=== PATIENT | female | born 1970 | race Caucasian/White ===

== ENCOUNTER 2017-10-25 18:02 | Emergency (ER) | payer OTHER ==
[~2017-10-25] VITALS: Ht 167.6 cm; Wt 92.5 kg
[~2017-10-25 18:02] MED LIST: ACET500 PO; ALBIPROI INH; ALBU90OI INH; ASPI325 PO; ATORVASTATIN CA40 MG PO; AZIT250 PO; CHLO25 PO; CYCL10 PO; FETZIMA80 MG PO; FISH1000 PO; FLUSAL1005 INH; GABA300 PO; HYDACE5 PO; HYDACE5325 PO; IBUP600 PO; IBUP800 PO; LOSA50 PO; MELO7.5 PO; Mobic15 MG PO; NAPR500 PO; Naprosyn500 MG PO; Norco 10-325 T1 EACH PO; OXYACE5T PO; PENVK500 PO; Percocet 5-3251 EACH PO; ULTRA-LIGHT RO1 EACH MC; Ultram50 MG PO; ZESTORETIC 20-121 EA PO; Zofran Odt4 MG SL
[2017-10-25 18:44] LABS: BASOPHILS ABSOLUTE AUTO 0.02 K/mm3 (0.00-0.23); BASOPHILS PERCENT AUTO 0 % (0-2); EOSINOPHILS PERCENT AUTO 0 % (0-6); Hematocrit 45.6 % (33.0-51.0); Hemoglobin 16.2 g/dL (11.5-16.0); IMMATURE GRAN ABSOLUTE AUTO 0.04 K/mm3 (0.00-0.10); IMMATURE GRAN PERCENT AUTO 0 % (0-1); LYMPHOCYTES ABSOLUTE AUTO 2.04 K/mm3 (0.84-5.20); LYMPHOCYTES PERCENT AUTO 15 % (21-46); MONOCYTES PERCENT AUTO 10 % (4-13); Mean Corpuscular HGB 34.5 pg (26.0-34.0); Mean Corpuscular HGB Conc 35.5 g/dL (31.5-36.5); Mean Corpuscular Volume 97 fL (80-100); Mean Platelet Volume 10.8 fL (9.1-12.4); NEUTROPHILS ABSOLUTE AUTO 9.94 K/mm3 (1.96-9.15); NEUTROPHILS PERCENT AUTO 74 % (41-73); Platelet Count 181 K/mm3 (150-400); RDW Coefficient Variation 13.5 % (11.7-14.2); RDW Standard Deviation 48.1 fL (35.1-46.3); White Blood Cell Count 13.44 K/mm3 (4.00-11.30)
[2017-10-25 19:05] LABS: Alanine Aminotransfer (ALT/SGP 64 U/L (12-78); Albumin, Blood 3.5 g/dL (3.4-5.0); Albumin/Globulin Ratio 0.9 (0.8-1.8); Alk Phos 87 U/L (50-136); Anion Gap 10 mmol/L (6-16); Aspartate Aminotrans (AST/SGOT 109 U/L (12-37); Bilirubin, Total 1.5 mg/dL (0.1-1.0); Blood Urea Nitrogen 20 mg/dL (8-24); Bun/Creatinine Ratio 33.1 (12.0-20.0); CO2, Blood 28 mmol/L (21-32); Calcium, Blood 9.4 mg/dL (8.5-10.1); Chloride, Blood 91 mmol/L (98-108); Creatinine, Blood 0.61 mg/dL (0.40-1.00); Globulin, Blood 3.9 g/dL (2.2-4.0); Glomerular Filtration Rate >60 (60-); Glucose, Blood 153 mg/dL (70-99); Sodium, Blood 129 mmol/L (136-145); Total Protein, Blood 7.4 g/dL (6.4-8.2)
[2017-10-25 20:04] LABS: Ethanol (Alcohol), Blood, Med <3 mg/dL; Troponin I <0.015 ng/mL (0.000-0.040)
== END 2017-10-25 22:23 | disposition short-term general hospital (02) ==
LOC: ER 18:02
PROVIDERS: Emergency Medicine
DX: K92.2 Gastrointestinal hemorrhage, unspecified (principal); E87.8 Other disorders of electrolyte and fluid balance, not elsewhere classified; E87.1 Hypo-osmolality and hyponatremia; E87.6 Hypokalemia; F10.239 Alcohol dependence with withdrawal, unspecified; I10 Essential (primary) hypertension; F41.9 Anxiety disorder, unspecified; F17.200 Nicotine dependence, unspecified, uncomplicated; Z79.899 Other long term (current) drug therapy
CPT/HCPCS: 36415; 71045; 80053; 83690; 84484; 85025; 86850; 86900; 86901; 93005; 93010; 96365; 96366; 96375; 99285; C9113; G0480; J1170; J2060; J2405; J2765; J3411; J3475; J7042

== ENCOUNTER 2018-01-26 15:31 | Inpatient (IN) | payer OTHER ==
[~2018-01-26] VITALS: Ht 167.6 cm; Wt 90.7 kg
[2018-02-03] MEDS ORDERED: IBUP800 PO (13:49)
[2018-02-03] MEDS ORDERED: Solaraze100 GM TOP (13:50)
[2018-02-03] MEDS ORDERED: AMIT25 PO (13:53)
[2018-02-18 05:28] LABS: BASOPHILS PERCENT AUTO 0 % (0-2); EOSINOPHILS PERCENT AUTO 0 % (0-6); Hematocrit 32.9 % (33.0-51.0); Hemoglobin 11.2 g/dL (11.5-16.0); IMMATURE GRAN ABSOLUTE AUTO 0.03 K/mm3 (0.00-0.10); IMMATURE GRAN PERCENT AUTO 0 % (0-1); LYMPHOCYTES ABSOLUTE AUTO 1.39 K/mm3 (0.84-5.20); LYMPHOCYTES PERCENT AUTO 12 % (21-46); MONOCYTES PERCENT AUTO 8 % (4-13); Mean Corpuscular HGB 32.2 pg (26.0-34.0); Mean Corpuscular Volume 95 fL (80-100); NEUTROPHILS PERCENT AUTO 80 % (41-73); Platelet Count 207 K/mm3 (150-400); RDW Coefficient Variation 13.5 % (11.7-14.2); RDW Standard Deviation 47.1 fL (35.1-46.3); Red Blood Cell Count 3.48 M/mm3 (3.80-5.20); White Blood Cell Count 12.12 K/mm3 (4.00-11.30)
[2018-02-18 05:43] LABS: Anion Gap 6 mmol/L (6-16); Blood Urea Nitrogen 15 mg/dL (8-24); Bun/Creatinine Ratio 25.4 (12.0-20.0); CO2, Blood 29 mmol/L (21-32); Calcium, Blood 8.6 mg/dL (8.5-10.1); Chloride, Blood 101 mmol/L (98-108); Creatinine, Blood 0.59 mg/dL (0.40-1.00); Glomerular Filtration Rate >60 (60-); Glucose, Blood 144 mg/dL (70-99); Potassium, Blood 4.5 mmol/L (3.5-5.5); Sodium, Blood 136 mmol/L (136-145)
[2018-02-18] MEDS ORDERED: ASPI325EC PO (09:34)
[2018-02-18] MEDS ORDERED: Percocet 5-3251 EACH PO (09:36)
== END 2018-02-18 11:26 | disposition home or self-care (01) | DRG 470 ==
LOC: SURS 02-17 06:08 → PRE IP 02-17 07:30 → SURS 02-17 12:05
PROVIDERS: Orthopaedic Surgery
PROC: 0SRB04Z Replacement of Left Hip Joint with Ceramic on Polyethylene Synthetic Substitute, Open Approach (ICD-10-PCS; principal; 2018-02-17 07:30)
DX: M16.12 Unilateral primary osteoarthritis, left hip (principal); I10 Essential (primary) hypertension; E66.9 Obesity, unspecified; Z68.32 Body mass index [BMI] 32.0-32.9, adult; G89.29 Other chronic pain; M54.5 Low back pain; Z87.891 Personal history of nicotine dependence
CPT/HCPCS: 36415; 72170; 80048; 85025; 86850; 86900; 86901; 88300; 97110; 97116; 97162; C1776; G8978; G8979; J0171; J0690; J0735; J1100; J1170; J1885; J2250; J2370; J2405; J2710; J2795; J3010; J7120

== ENCOUNTER 2020-03-30 10:37 | Inpatient (IN) | payer OTHER ==
[~2020-03-30] VITALS: Ht 167.6 cm; Wt 101.4 kg
[~2020-03-30 10:37] MED LIST changes: +AMIT25 PO; +ASPI325EC PO; +Solaraze100 GM TOP
[2020-03-30 11:22] LABS: BASOPHILS ABSOLUTE AUTO 0.06 K/mm3 (0.00-0.23); BASOPHILS PERCENT AUTO 1 % (0-2); EOSINOPHILS PERCENT AUTO 2 % (0-6); Hematocrit 38.3 % (33.0-51.0); Hemoglobin 13.1 g/dL (11.5-16.0); IMMATURE GRAN ABSOLUTE AUTO 0.08 K/mm3 (0.00-0.10); IMMATURE GRAN PERCENT AUTO 1 % (0-1); LYMPHOCYTES ABSOLUTE AUTO 2.27 K/mm3 (0.84-5.20); LYMPHOCYTES PERCENT AUTO 33 % (21-46); MONOCYTES ABSOLUTE AUTO 1.02 K/mm3 (0.16-1.47); MONOCYTES PERCENT AUTO 15 % (4-13); Mean Corpuscular HGB 32.6 pg (26.0-34.0); Mean Corpuscular HGB Conc 34.2 g/dL (31.5-36.5); Mean Corpuscular Volume 95 fL (80-100); Mean Platelet Volume 11.6 fL (9.1-12.4); NEUTROPHILS PERCENT AUTO 48 % (41-73); Platelet Count 200 K/mm3 (150-400); RDW Coefficient Variation 19.9 % (11.7-14.2); RDW Standard Deviation 68.9 fL (35.1-46.3); Red Blood Cell Count 4.02 M/mm3 (3.80-5.20); White Blood Cell Count 6.83 K/mm3 (4.00-11.30)
[2020-03-30 11:45] LABS: Albumin, Blood 3.3 g/dL (3.4-5.0); Albumin/Globulin Ratio 0.8 (0.8-1.8); Bilirubin, Total 1.4 mg/dL (0.1-1.0); Bun/Creatinine Ratio 14.9 (12.0-20.0); Calcium, Blood 5.7 mg/dL (8.5-10.1); Creatinine, Blood 3.63 mg/dL (0.40-1.00); Globulin, Blood 4.3 g/dL (2.2-4.0); Potassium, Blood 2.8 mmol/L (3.5-5.5); Total Protein, Blood 7.6 g/dL (6.4-8.2)
[2020-03-30 11:46] LABS: Magnesium, Blood 0.7 mg/dL (1.6-2.4); Phosphorus, Blood 4.6 mg/dL (2.5-4.9)
[2020-03-30] MEDS ORDERED: LOSA50 PO (11:56)
[2020-03-30] MEDS ORDERED: METO25ER PO (11:57)
[2020-03-30] MEDS ORDERED: NYAMYC15 G1 TOP (11:57)
[2020-03-30] MEDS ORDERED: ALBU90OI INH (11:58)
[2020-03-30 11:59] LABS: Base Excess Venous -3.4 mmol/L; Bicarbonate Venous 20.7 mmol/L (24.0-30.0); PCO2 Venous 50.4 mmHg (38-42); PO2 Venous 41.6 mmHg (38-42); pH Blood Venous 7.28 (7.34-7.37)
[2020-03-30 12:24] LABS: Source, Urine Clean Catch
[2020-03-30 12:27] LABS: Bilirubin, Urine Neg (Neg); Blood, Urine 4+ (Neg); Glucose Qualitative, Urine Neg (Neg); Ketones, Urine Neg (Neg); Leukocyte Esterase, Urine Neg (Neg); Nitrite, Urine Neg (Neg); Protein, Urine 2+ (Neg); Specific Gravity, Urine 1.015 (1.003-1.022); Urobilinogen, Urine NORM (Normal)
[2020-03-30 12:48] LABS: Appearance, Urine Hazy (Clear); Color, Urine Yellow (P-Yellow)
[2020-03-30 12:49] LABS: Bacteria Many /hpf; Squamous Epithelial Cells Many /hpf (Few)
[2020-03-30 17:01] LABS: Hematocrit 35.6 % (33.0-51.0)
[2020-03-30 17:16] LABS: Albumin, Blood 2.9 g/dL (3.4-5.0); Anion Gap 21 mmol/L (6-16); Blood Urea Nitrogen 53 mg/dL (8-24); Bun/Creatinine Ratio 15.5 (12.0-20.0); CO2, Blood 20 mmol/L (21-32); Calcium, Blood 5.3 mg/dL (8.5-10.1); Chloride, Blood 83 mmol/L (98-108); Creatinine, Blood 3.43 mg/dL (0.40-1.00); Glomerular Filtration Rate 15 (60-); Glucose, Blood 83 mg/dL (70-99); Phosphorus, Blood 4.9 mg/dL (2.5-4.9); Potassium, Blood 2.8 mmol/L (3.5-5.5); Sodium, Blood 124 mmol/L (136-145)
[2020-03-30 17:50] LABS: Albumin, Blood 3.2 g/dL (3.4-5.0); Anion Gap 17 mmol/L (6-16); Blood Urea Nitrogen 53 mg/dL (8-24); Bun/Creatinine Ratio 16.5 (12.0-20.0); CO2, Blood 22 mmol/L (21-32); Calcium, Blood 6.4 mg/dL (8.5-10.1); Chloride, Blood 84 mmol/L (98-108); Creatinine, Blood 3.21 mg/dL (0.40-1.00); Glomerular Filtration Rate 16 (60-); Glucose, Blood 113 mg/dL (70-99); Magnesium, Blood 1.3 mg/dL (1.6-2.4); Phosphorus, Blood 4.7 mg/dL (2.5-4.9); Potassium, Blood 2.8 mmol/L (3.5-5.5); Sodium, Blood 123 mmol/L (136-145)
[2020-03-31 03:36] LABS: Hematocrit 32.2 % (33.0-51.0); Hemoglobin 10.6 g/dL (11.5-16.0); Mean Corpuscular HGB 32.4 pg (26.0-34.0); Mean Corpuscular HGB Conc 32.9 g/dL (31.5-36.5); Mean Platelet Volume 11.4 fL (9.1-12.4); Platelet Count 135 K/mm3 (150-400); RDW Coefficient Variation 20.1 % (11.7-14.2); RDW Standard Deviation 72.6 fL (35.1-46.3); Red Blood Cell Count 3.27 M/mm3 (3.80-5.20); White Blood Cell Count 6.14 K/mm3 (4.00-11.30)
[2020-03-31 03:37] LABS: Mean Corpuscular Volume 99 fL (80-100)
[2020-03-31 04:19] LABS: Albumin, Blood 2.6 g/dL (3.4-5.0); Albumin/Globulin Ratio 0.8 (0.8-1.8); Bilirubin, Total 1.4 mg/dL (0.1-1.0); Bun/Creatinine Ratio 18.1 (12.0-20.0); Calcium, Blood 5.8 mg/dL (8.5-10.1); Creatinine, Blood 2.7 mg/dL (0.40-1.00); Globulin, Blood 3.4 g/dL (2.2-4.0); Potassium, Blood 3.5 mmol/L (3.5-5.5)
[2020-03-31 04:38] LABS: Magnesium, Blood 1.9 mg/dL (1.6-2.4)
--- NOTE | 2020-03-31 05:46 | NUR ---
SHIFT SUMMARY PATIENT SLEPT WELL THROUGH NIGHT. EARLY IN SHIFT HAD ELEVATED CIWAs, SEE DOCUMENTATION, WAS WELL CONTROLLED WITH AVAILABLE ATIVAN AND LIBRIUM, SEE EMAR. WAS RATHER SOMNOLENT INITIALLY AFTER 50 MG LIBRIUM, MAY BENEFIT FROM SMALLER DOSE, OR FURTHER AWAY TIMING FROM ATIVAN. ELECTROLYTES MUCH IMPROVED OVERALL THIS AM, STILL REQUIRED CALCIUM REPLACEMENT. DID HAVE TO PLACE ON 2L NC, WAS DESATURATING TO 84% WITHOUT OXYGEN IN SLEEP. NO C/O PAIN. VSS. ASSESSMENT IS CHARTED. WILL CONTINUE TO MONITOR.
--- NOTE | 2020-03-31 09:54 | NUR ---
AM - DAYSHIFT PCU NOTE PATIENT ALERT AND ORIENTED X4. RESP E/U ON ROOM AIR. PATIENT STATES SHE FEELS 'FOGGY' - EDUCATED PATIENT ON ETOH DETOX MEDICATION - PATIENT REQUESTED MORE MEDICATIONS REGARDLESS OF 'FOGGY' FEELING. PATIENT REPORTS CHRONIC BACK PAIN. NORMAL SINUS RHYTHM NOTED WITH NO CARDIAC EVENTS. MD SINGER IN TO SEE PATIENT - NEW ORDERS FOR CARDIAC DIET AND MEDICAL STATUS NO TELE GIVEN. REPORT GIVEN TO KENDELL JALOUSIE INSTALLER. NO ACUTE DISTRES NOTED.
[2020-03-31 13:33] LABS: Albumin, Blood 2.6 g/dL (3.4-5.0); Anion Gap 10 mmol/L (6-16); Blood Urea Nitrogen 45 mg/dL (8-24); CO2, Blood 23 mmol/L (21-32); Calcium, Blood 6.2 mg/dL (8.5-10.1); Chloride, Blood 100 mmol/L (98-108); Creatinine, Blood 2.14 mg/dL (0.40-1.00); Glomerular Filtration Rate 26 (60-); Glucose, Blood 119 mg/dL (70-99); Magnesium, Blood 1.5 mg/dL (1.6-2.4); Phosphorus, Blood 2.5 mg/dL (2.5-4.9); Potassium, Blood 3.3 mmol/L (3.5-5.5); Sodium, Blood 133 mmol/L (136-145)
--- NOTE | 2020-03-31 15:48 | NUR ---
UPDATE PT ALERT AND ORIENTED. VS STABLE. O2 SATS REMAIN ABOVE 90% ON RA. BP STABLE. TELEMETRY HAS BEEN DISCONTINUED. MONITORING WITHDRAWALS AND TREATING PER CIWA. ORDERS CHANGED TO MEDICAL STATUS. REPORT CALLED TO MEDICAL FLOOR RN. PT TAKEN UP BY LIZ.
--- NOTE | 2020-03-31 19:12 | NUR ---
SHIFT SUMMARY- PT ALERT AND ORIENTED. TRANSFERED TO MEDICAL FLOOR FROM PCU. PT WAS MEDICATED FOR CIWA OF 9 AT 1715 WITH LIBRIUM. PT APPEARS TO BE STABLE AT THIS TIME. SHE IS CURRENTLY IN BED SLEEPING CALL LIGHT IN REACH AND BED ALARM SET FOR SAFETY. BEDSIDE REPORT COMPLETED WITH NIGHT RN. NO S&S OF DISTRESS NOTED AT THIS TIME PT APPEARS RELAXED AND COMFORTABLE.
[2020-04-01 05:28] LABS: Albumin, Blood 2.5 g/dL (3.4-5.0); Anion Gap 10 mmol/L (6-16); Blood Urea Nitrogen 32 mg/dL (8-24); Bun/Creatinine Ratio 24.1 (12.0-20.0); CO2, Blood 20 mmol/L (21-32); Calcium, Blood 6.2 mg/dL (8.5-10.1); Chloride, Blood 105 mmol/L (98-108); Creatinine, Blood 1.33 mg/dL (0.40-1.00); Glomerular Filtration Rate 45 (60-); Glucose, Blood 109 mg/dL (70-99); Phosphorus, Blood 1.7 mg/dL (2.5-4.9); Sodium, Blood 135 mmol/L (136-145)
--- NOTE | 2020-04-01 07:27 | NUR ---
AUDIO VISUAL EQUIPMENT RENTAL CLERK SUMMARY PT A/O X4. CIWAS OF 9-12 ON MY SHIFT. WITHDRAWL MEDS GIVEN PER EMAR. BED ALARM ON. PT CALLS APPROPRIATELY. VSS. NO ACUTE CHANGES.
--- NOTE | 2020-04-01 17:44 | NUR ---
PATIENT VERY DROWSY THROUGHOUT THIS SHIFT. CIWA SCORE OF 6 TODAY. MEDICATED X1 TODAY WITH TRAMADOL FOR CHRONIC BACK PAIN. UP WITH SBA, GAIT UNSTEADY. PATIENT IS CONTINENT OF BOWEL AND BLADDER. LUNGS CLEAR/DIM THROUGHOUT, ON RA. MAGNESIUM REPLACED TODAY AND NEUTRA PHOS GIVEN. AMMONIA LEVEL 60, LACTULOSE WAS STARTED. PATIENT CAN BE IRRITABLE AT TIMES. TOLERATING CARDIAC DIET. ZOFRAN GIVEN X1 THIS SHIFT FOR NAUSEA, NO EMESIS TODAY. FALL PRECAUTIONS IN PLACE PER UNIT PROTOCOL.
[2020-04-02 05:17] LABS: Albumin, Blood 2.4 g/dL (3.4-5.0); Anion Gap 5 mmol/L (6-16); Blood Urea Nitrogen 20 mg/dL (8-24); Bun/Creatinine Ratio 20.5 (12.0-20.0); CO2, Blood 25 mmol/L (21-32); Calcium, Blood 6.6 mg/dL (8.5-10.1); Chloride, Blood 109 mmol/L (98-108); Creatinine, Blood 0.98 mg/dL (0.40-1.00); Glomerular Filtration Rate >60 (60-); Glucose, Blood 100 mg/dL (70-99); Potassium, Blood 3.9 mmol/L (3.5-5.5); Sodium, Blood 139 mmol/L (136-145)
--- NOTE | 2020-04-02 06:39 | NUR ---
GLACING MACHINE TENDER SUMMARY CIWA OF 10 AT START OF SHIFT. GIVEN 1MG IV ATIVAN. PT REPORTED HEADACHE, NAUSEA, ANXIETY, AND HAD SOME MILD VISIBLE TREMORS. SBP 89 WITH MORNING VITALS BUT GOT PT UP TO BATHROOM AND RECHECK SHORTLY AFTER SBP 130'S. VSS, WILL CONTINUE TO MONITOR.
--- NOTE | 2020-04-02 17:02 | NUR ---
SUMMARY PT RESTING QUIETLY IN BED, WAKES EASILY, HAS MILD TREMORS, MED PER EMAR FOR WITHDRAWL, PT C/O NAUSEA, MED PER EMAR FOR NAUSEA WELL, PT HAS BEEN INDEPENDENT IN THE ROOM T/O THE DAY, NO COMPLAINTS, VSS, POSSIBLE DC IN AM, WILL CONTINUE TO MONITOR
[2020-04-03 05:07] LABS: Albumin, Blood 2.5 g/dL (3.4-5.0); Anion Gap 4 mmol/L (6-16); Blood Urea Nitrogen 11 mg/dL (8-24); Bun/Creatinine Ratio 10.9 (12.0-20.0); CO2, Blood 26 mmol/L (21-32); Calcium, Blood 6.6 mg/dL (8.5-10.1); Chloride, Blood 110 mmol/L (98-108); Creatinine, Blood 1.01 mg/dL (0.40-1.00); Glomerular Filtration Rate >60 (60-); Glucose, Blood 107 mg/dL (70-99); Potassium, Blood 4.5 mmol/L (3.5-5.5); Sodium, Blood 140 mmol/L (136-145)
--- NOTE | 2020-04-03 06:17 | NUR ---
SHIFT SUMMARY PT IS A 49 Y/O FEMALE, ADMITTED FOR ACUTE RENAL FAILURE, LIVER FAILURE AND ETOH WITHDRAWAL. PT WAS MEDICATED ONCE AT HS FOR CHRONIC BACK PAIN WITH PRN TRAMADOL. NO COMPLAINTS OF NAUSEA OR SOB. PT WAS VERY SOMNOLENT THIS AM, WITH SOME MINOR TREMORS NOTED. PT REFUSED HS LACTULOSE DUE TO A LARGE NUMBER OF LIQUID BMS. VITAL SIGNS STABLE. NO ACUTE CHANGES IN PT CONDITION NOTED. WILL CONTINUE TO MONITOR AND TREAT PER EMAR UNTIL HAND OFF TO DAY SHIFT RN.
[2020-04-03 12:04] LABS: Base Excess Venous -2.5 mmol/L; Bicarbonate Venous 22.1 mmol/L (24.0-30.0); PCO2 Venous 48.2 mmHg (38-42); PO2 Venous 63.1 mmHg (38-42)
--- NOTE | 2020-04-03 17:59 | NUR ---
SUMMARY- PT SLEEPY MOST OF THE DAY NAPPING ON AND OFF, EASILY AROUSES. AMBULATES TO BATHROOM SBA, STEADY ON FEET. MULT LOOSE STOOLS TODAY AFTER LACTALOSE. PT HAS A EXP WHEEZE, CALLED FOR NEBULIZER THIS AM WITH DORINDA JUAREZ. NOTIFIED DR ROBBINS OF WHEEZE, AND POSSIBILITY OF FLUID ON HER LUNGS. CHEST XRAY ORDERED. BMP ORDERED. RT SET UP CPAP, AND PT TOOK OFF AFTER 10 MINUTES. CONT PULSE OX, LOWEST WAS 86%, STAYS MOSTLY 90-092%. NO NOTABLE APNEA WHEN RESTING. AWAKENS AND SITS AT EDGE OF BED AND EATING APPROX 50% OF MEALS.
--- NOTE | 2020-04-03 23:57 | NUR ---
2336 PT C/O SLIGHT ANXIETY; LIBRIUM 25MG PO GIVEN. 2340 THIS NURSE HEARD LOUD NOICE AND THUMP ON FLOOR; PATIENT WAS FOUND LAYING ON LEFT LATERAL SIDE FIVE FEET FROM BED AND STATING THAT SHE ROLLED OUT OF BED; C/O OCCIPITAL PAIN RATED 1/10 (NO RAISED AREA OR BLEEDING NOTED); PT ASSISTED BACK TO BED X 1 ASSIST (PT STOOD AND TRANSFERRED TO BED); BED ALARM APPLIED; VITAL SIGNS STABLE; KINGSLEY DIAMOND RN, CHARGE NURSE AT SIDE; NEUROLOGICAL STATUS OK--NO DEFICITS NOTED. 2350 Jb PERALES NP NOTIFIED OF ABOVE WITH ORDERS TO CONTINUE MONITOR.
--- NOTE | 2020-04-04 05:10 | NUR ---
SHIFT SUMMARY: 49 Y/O OBESE FEMALE HAD RESTLESS NIGHT AT TIMES WITH LIBRIUM 25MG PO GIVEN ONCE WITH SLIGHT RELIEF FELT; PT HAD FALL THIS SHIFT AFTER BEING FOUND ON FLOOR BY THIS NURSE; PT CONTINUES TO BE SLIGHTLY DISORIENTED AT TIMES WITH SPEECH SLOW WHICH SAME BEHAVIOR DISPLACED BEFORE FALL. ; PT REQUIRED FREQUENT REDIRECTION; BED ALARM REMAINED APPLIED, BED LOW POSITIION WITH CALL LIGHT AT SIDE; CIWA SCORE REMAINS 7.
--- NOTE | 2020-04-04 05:17 | NUR ---
PT WAS SITTING ON EDGE OF BED WITH FEET THRU SIDE RAILS; PT READJUSTED SELF BACK INTO BED X 1 ASSIST; THOUGHT PROCESS DISORGANIZED, ABLE TO FOLLOW VERY SIMPLE VERBAL COMMANDS.
--- NOTE | 2020-04-04 20:00 | NUR ---
ASSUMED CARE RECEIVED REPORT FROM DAY RN, ASSUMED CARE OF PT. RESTING COMFORTABLY AT THIS TIME, NO S/S ACUTE DISTRESS, AGITATION NOTED. CALM AND SLEEPING AT THIS TIME. DENIES NEEDS. CALL LIGHT, POSSESSIONS IN REACH, BED IN LOWEST POSITION WITH ALARMS ON. WILL CONTINUE TO MONITOR.
--- NOTE | 2020-04-05 03:59 | NUR ---
SHIFT SUMMARY PT HAS HAD AN UNEVENTFUL NIGHT. A&O, DROWSY, BUT AROUSABLE T/O SHIFT. CIWA SCORES BETWEEN 0-5. PT PLEASANT, COOPERATIVE WITH CARES. O2 SATS STABLE ON 1L/NC, BETWEEN 90-94%. SLEPT ON AND OFF. AMBULATED TO BATHROOM WITH SBA WITH FWW AND GB. NO ADVERSE EFFECTS NOTED FROM FALL. THIS RN REMINDED PT TO CALL PRIOR TO GETTING OOB. PT CALLING APPROPRIATELY FOR NEEDS. EARLY YEARS TEACHER AT BEDSIDE AT THIS TIME. CALL LIGHT, POSSESSIONS IN REACH, BED IN LOWEST POSITION WITH ALARMS ON. WILL CONTINUE TO MONITOR UNTIL DAY RN ASSUMES CARE.
[2020-04-06 05:49] LABS: BASOPHILS ABSOLUTE AUTO 0.05 K/mm3 (0.00-0.23); BASOPHILS PERCENT AUTO 1 % (0-2); EOSINOPHILS ABSOLUTE AUTO 0.19 K/mm3 (0.00-0.68); EOSINOPHILS PERCENT AUTO 3 % (0-6); Hematocrit 30.8 % (33.0-51.0); Hemoglobin 9.7 g/dL (11.5-16.0); IMMATURE GRAN ABSOLUTE AUTO 0.04 K/mm3 (0.00-0.10); IMMATURE GRAN PERCENT AUTO 1 % (0-1); LYMPHOCYTES ABSOLUTE AUTO 2.19 K/mm3 (0.84-5.20); LYMPHOCYTES PERCENT AUTO 34 % (21-46); MONOCYTES ABSOLUTE AUTO 0.84 K/mm3 (0.16-1.47); MONOCYTES PERCENT AUTO 13 % (4-13); Mean Corpuscular HGB 33.3 pg (26.0-34.0); Mean Corpuscular HGB Conc 31.5 g/dL (31.5-36.5); Mean Platelet Volume 11.3 fL (9.1-12.4); NEUTROPHILS ABSOLUTE AUTO 3.05 K/mm3 (1.96-9.15); NEUTROPHILS PERCENT AUTO 48 % (41-73); NRBC ABSOLUTE 0.03 K/mm3 (0.00-0.02); NRBC Auto 0.5 /100 WBC (0.0-0.2); Platelet Count 199 K/mm3 (150-400); RDW Standard Deviation 77.5 fL (35.1-46.3); Red Blood Cell Count 2.91 M/mm3 (3.80-5.20); White Blood Cell Count 6.36 K/mm3 (4.00-11.30)
[2020-04-06 05:52] LABS: Mean Corpuscular Volume 106 fL (80-100)
[2020-04-06 06:01] LABS: Alanine Aminotransfer (ALT/SGP 53 U/L (12-78); Albumin, Blood 2.6 g/dL (3.4-5.0); Albumin/Globulin Ratio 0.8 (0.8-1.8); Alk Phos 93 U/L (50-136); Anion Gap 2 mmol/L (6-16); Aspartate Aminotrans (AST/SGOT 67 U/L (12-37); Bilirubin, Total 0.5 mg/dL (0.1-1.0); Blood Urea Nitrogen 3 mg/dL (8-24); Bun/Creatinine Ratio 3.9 (12.0-20.0); CO2, Blood 33 mmol/L (21-32); Calcium, Blood 6.9 mg/dL (8.5-10.1); Chloride, Blood 106 mmol/L (98-108); Creatinine, Blood 0.76 mg/dL (0.40-1.00); Globulin, Blood 3.1 g/dL (2.2-4.0); Glomerular Filtration Rate >60 (60-); Glucose, Blood 104 mg/dL (70-99); Potassium, Blood 4.1 mmol/L (3.5-5.5); Sodium, Blood 141 mmol/L (136-145); Total Protein, Blood 5.7 g/dL (6.4-8.2)
[2020-04-06 06:20] LABS: Magnesium, Blood 0.6 mg/dL (1.6-2.4)
[2020-04-06 06:21] LABS: Percent Saturation 41.7 % (15.0-50.0)
--- NOTE | 2020-04-06 06:48 | NUR ---
SHIFT SUMMARY: VSS. AFEB. AAOX3. SLOW TO RESPOND. COMMUNICATES NEEDS. OCCASIONALLY IRRITABLE WITH ALARMS AND FEELING UNCOMFORTABLE. CIWA SCORES 5-8 TONIGHT. ATIVAN GIVEN X1 WITH GOOD EFFECT. 02 SATS BETWEEN 88-95% ON 2L VIA NC. LSCTA. OCC DRY COUGH. SOB W/EXERTION. CRITICAL MG+ CALLED TO HOSPITALIST. IV MG+ ORDERED. NOTED. WILL CONT TO MONITOR.
--- NOTE | 2020-04-06 17:15 | NUR ---
SHIFT SUMMARY PT HAS BEEN SLEEPING A LOT OF THE SHIFT. UP TO CHAIR FOR LUNCH. MEDICATED FOR HEADACHE WITH TORADOL THIS AM. PT REPORTS IT WAS SUCCESSFUL WITH HELPING THE PAIN. PT ON ROOM AIR AT THIS TIME AND TOLERATING AT THIS TIME. NO ACUTE CHANGES. POSSIBLE DISCHARGE TOMORROW. CALL LIGHT IN REACH. BED ALARM ON FOR FALL RISK. WILL CONTINUE TO MONITOR AND REPORT TO ONCOMING RN.
--- NOTE | 2020-04-06 21:58 | NUR ---
PT 02 SATS RANGING 85% TO 90% ON RA. LAYING IN BED AT REST. SATS INCREASE TO 90% WHEN PT IS MORE ACTIVE AND SPEAKING. DECREASE AT REST. 02 VIA NC PLACED. 02 SATS 95% ON 2L. SOB W/EXERTION. LSCTA. OCC NON-PRODUCTIVE COUGH. WILL CONT TO MONITOR.
--- NOTE | 2020-04-07 04:40 | NUR ---
SHIFT SUMMARY: VSS. AFEB. SATS WNL WHEN WEARING 02 AT 2L TONIGHT. EACH TIME 02 CAME OFF, SATS DROPPED TO LOW TO MID 80'S. LSCTA. OCC WET SOUNDING, BUT NON-PRODUCTIVE COUGH. SLIGHT WHEEZE W/EXERTION THIS MORNING. T/F W SBA. CONTINENT. TRAMADOL X 1 FOR HEADACHE. PT STATES HELPFUL. UP MULTIPLE TIMES TO THE BATHROOM TONIGHT TO VOID. NO ACUTE CHANGES AT THIS TIME. WILL CONT TO MONITOR.
[2020-04-07 06:28] LABS: Alanine Aminotransfer (ALT/SGP 45 U/L (12-78); Albumin, Blood 2.5 g/dL (3.4-5.0); Albumin/Globulin Ratio 0.9 (0.8-1.8); Anion Gap 5 mmol/L (6-16); Aspartate Aminotrans (AST/SGOT 58 U/L (12-37); Bilirubin, Total 0.7 mg/dL (0.1-1.0); Blood Urea Nitrogen 3 mg/dL (8-24); Bun/Creatinine Ratio 4.3 (12.0-20.0); CO2, Blood 32 mmol/L (21-32); Calcium, Blood 7.2 mg/dL (8.5-10.1); Chloride, Blood 107 mmol/L (98-108); Globulin, Blood 2.9 g/dL (2.2-4.0); Glomerular Filtration Rate >60 (60-); Glucose, Blood 93 mg/dL (70-99); Phosphorus, Blood 3.5 mg/dL (2.5-4.9); Sodium, Blood 144 mmol/L (136-145); Total Protein, Blood 5.4 g/dL (6.4-8.2)
[2020-04-07 06:29] LABS: Alk Phos 84 U/L (50-136)
[2020-04-07 06:31] LABS: Magnesium, Blood 0.9 mg/dL (1.6-2.4)
--- NOTE | 2020-04-07 16:49 | NUR ---
SHIFT SUMMARY PT HAS BEEN SLEEPING MOST OF THE SHIFT. MEDICATED FOR HEADACHE AND BACK PAIN THIS AFTERNOON PER EMAR. PT ON OXYGEN WHILE SLEEPING DUE TO O2 SATS 84% ON ROOM AIR WHILE SLEEPING. PT HAS HAD A BETTER APPETITE THIS SHIFT. NO ACUTE CHANGES THIS SHIFT. CALL LIGHT IN REACH. WILL CONTINUE TO MONITOR AND REPORT TO ONCOMING RN.
--- NOTE | 2020-04-08 02:21 | NUR ---
PT REPORTING NEW ONSET BLE MUSCLE CRAMPING TONIGHT. KEEPING HER AWAKE. CALL PLACED TO HOSPITALIST AKANKSHA. NEW ORDER FOR 1G MG+ IV SUPPLEMENTATION. DRAW MG+ LEVEL WITH AM BLOOD DRAW. NOTED.
--- NOTE | 2020-04-08 04:33 | NUR ---
SHIFT SUMMARY: VSS. AFEB. 02 SATS WNL ON RA WHILE PT IS AWAKE. SATS DROPPING TO MID 80'S WHILE ASLEEP. 02 2L VIA NC PLACED AND SATS IN LOW 90'S WHILE SLEEPING. SOB W/EXERTION. 1X IV MG+ INFUSED ORDERED. PT REPORTING MUSCLE CRAMPING IN LEGS IS MUCH IMPROVED AT THIS TIME. HAS SLEPT MINIMALLY ALL NIGHT- UP TO VOID SEVERAL TIMES AND TOSSES AND TURNS IN BED. FREQUENTLY ENTANGLING SELF IN TUBING, LINES, GOWN, AND BLANKETS. MED FOR PAIN PER EMAR. PT STATES "HELPS". APPEARS TO BE SLEEPING AT THIS TIME. WILL CONT TO MONITOR PT STATUS.
[2020-04-08] MEDS ORDERED: MIRT30 PO (14:14)
[2020-04-08] MEDS ORDERED: MULVITB PO (14:16)
[2020-04-08] MEDS ORDERED: PANT40 PO (14:17)
--- NOTE | 2020-04-08 15:01 | NUR ---
PATIENT DISCHARGE: PATIENT DISCHARGED TO HOME / XFR TO HOME HEALTH THIS SHIFT. MEDICATION RECONCILIATION COMPLETED; MED LIST FAXED TO [facility]. DISCHARGE EDUCATION COMPLETED WITH PATIENT. PATIENT TRANSPORTED TO EXIT BY [facility] WITH WHEELCHAIR AT 1500. PATIENT DEPARTED [facility] VIA PRIVATE AUTO.
== END 2020-04-08 14:58 | disposition home health service (06) | DRG 683 ==
LOC: ER 10:37 → PCU 16:33 → MEDS 16:33 → PCU 18:34 → MEDS 03-31 15:45
PROVIDERS: Family Medicine; Internal Medicine; Physician Assistant; ADMIT Internal Medicine
DX: N17.9 Acute kidney failure, unspecified (principal); E87.1 Hypo-osmolality and hyponatremia; F10.239 Alcohol dependence with withdrawal, unspecified; E72.20 Disorder of urea cycle metabolism, unspecified; G89.29 Other chronic pain; I10 Essential (primary) hypertension; F41.9 Anxiety disorder, unspecified; Z96.643 Presence of artificial hip joint, bilateral; F17.210 Nicotine dependence, cigarettes, uncomplicated; E66.9 Obesity, unspecified; Z68.35 Body mass index [BMI] 35.0-35.9, adult; E86.0 Dehydration; E83.51 Hypocalcemia; E83.42 Hypomagnesemia; R74.0 Nonspecific elevation of levels of transaminase and lactic acid dehydrogenase [LDH]; K70.10 Alcoholic hepatitis without ascites
CPT/HCPCS: 36415; 51798; 71046; 74018; 74176; 80053; 80069; 81001; 82140; 82330; 82607; 82728; 82746; 82803; 83540; 83550; 83605; 83690; 83735; 83880; 83970; 84100; 84145; 85014; 85018; 85025; 85027; 86850; 86900; 86901; 87040; 87086; 93005; 93010; 94640; 94660; 94762; 96361; 96365; 96366; 96368; 96375; 96376; 97161; 97162; 97165; 97530; 99285-25; A9270; A9270-GY; C8929; C9113; J0610; J1885; J1940; J2060; J2405; J3010; J3411; J3475; J3480; J7030; J7042; Q9957

== ENCOUNTER → 2021-11-26 | Outpatient (CLI) | payer OTHER ==
[~2021-11-26] MED LIST changes: +METO25ER PO; +MIRT30 PO; +MULVITB PO; +NYAMYC15 G1 TOP; +PANT40 PO
[2021-11-28 14:10] LABS: HPV 16 Negative (Negative); HPV 18 Negative (Negative); HPV OTHER HR TYPES Negative (Negative)
== END | disposition home or self-care (01) ==
LOC: LAB SHORT 17:32 → LAB 17:32
PROVIDERS: Registered Nurse
DX: Z12.4 Encounter for screening for malignant neoplasm of cervix (principal)
CPT/HCPCS: 87624; G0123

== ENCOUNTER 2022-08-05 13:43 | Emergency (ER) | payer OTHER ==
[~2022-08-05] VITALS: Ht 167.6 cm; Wt 113.4 kg
[2022-08-05] MEDS ORDERED: Naprosyn500 MG PO (15:35)
== END 2022-08-05 16:00 | disposition home or self-care (01) ==
LOC: ER 13:43
DX: M54.50 Low back pain, unspecified (principal); G89.29 Other chronic pain; I10 Essential (primary) hypertension; F17.200 Nicotine dependence, unspecified, uncomplicated; Z79.899 Other long term (current) drug therapy; Z88.5 Allergy status to narcotic agent
CPT/HCPCS: J1885

== ENCOUNTER 2022-08-08 19:50 | Inpatient (IN) | payer OTHER ==
[~2022-08-08] VITALS: Ht 167.6 cm; Wt 146.4 kg
[2022-08-08 20:20] LABS: BASOPHILS ABSOLUTE AUTO 0.04 K/mm3 (0.00-0.23); BASOPHILS PERCENT AUTO 1 % (0-2); EOSINOPHILS ABSOLUTE AUTO 0.09 K/mm3 (0.00-0.68); EOSINOPHILS PERCENT AUTO 1 % (0-6); Hematocrit 39.3 % (33.0-51.0); IMMATURE GRAN ABSOLUTE AUTO 0.05 K/mm3 (0.00-0.10); IMMATURE GRAN PERCENT AUTO 1 % (0-1); LYMPHOCYTES ABSOLUTE AUTO 1.81 K/mm3 (0.84-5.20); LYMPHOCYTES PERCENT AUTO 21 % (21-46); MONOCYTES ABSOLUTE AUTO 0.98 K/mm3 (0.16-1.47); MONOCYTES PERCENT AUTO 11 % (4-13); Mean Corpuscular HGB 35.2 pg (26.0-34.0); Mean Corpuscular HGB Conc 35.6 g/dL (31.5-36.5); Mean Corpuscular Volume 99 fL (80-100); Mean Platelet Volume 9.7 fL (9.1-12.4); NEUTROPHILS ABSOLUTE AUTO 5.72 K/mm3 (1.96-9.15); NEUTROPHILS PERCENT AUTO 66 % (41-73); NRBC ABSOLUTE 0.02 K/mm3 (0.00-0.02); NRBC Auto 0.2 /100 WBC (0.0-0.2); Platelet Count 176 K/mm3 (150-400); RDW Coefficient Variation 13.7 % (11.7-14.2); Red Blood Cell Count 3.98 M/mm3 (3.80-5.20); White Blood Cell Count 8.69 K/mm3 (4.00-11.30)
[2022-08-08 20:56] LABS: Alanine Aminotransfer (ALT/SGP 171 U/L (12-78); Albumin, Blood 3.1 g/dL (3.4-5.0); Alk Phos 236 U/L (50-136); Anion Gap 12 mmol/L (6-16); Aspartate Aminotrans (AST/SGOT 205 U/L (12-37); Blood Urea Nitrogen 21 mg/dL (8-24); Bun/Creatinine Ratio 7.2 (12.0-20.0); CO2, Blood 26 mmol/L (21-32); Calcium, Blood 9.3 mg/dL (8.5-10.1); Chloride, Blood 76 mmol/L (98-108); Creatinine, Blood 2.91 mg/dL (0.40-1.00); Globulin, Blood 3.2 g/dL (2.2-4.0); Glomerular Filtration Rate 19 (60-); Glucose, Blood 111 mg/dL (70-99); Potassium, Blood 5.9 mmol/L (3.5-5.5); Sodium, Blood 114 mmol/L (136-145); Total Protein, Blood 6.3 g/dL (6.4-8.2)
[2022-08-08] MEDS ORDERED: LOSA50 PO (22:25)
[2022-08-08] MEDS ORDERED: BUSPIRONE HCL7.5 M6 PO (22:25)
[2022-08-09 00:05] LABS: Acetaminophen, Random <2.0 ug/mL (10.0-30.0)
[2022-08-09 00:40] LABS: Magnesium, Blood 1.7 mg/dL (1.6-2.4)
[2022-08-09 03:39] LABS: Albumin, Blood 2.9 g/dL (3.4-5.0); Albumin/Globulin Ratio 0.9 (0.8-1.8); Bilirubin, Total 5.9 mg/dL (0.1-1.0); Bun/Creatinine Ratio 6.6 (12.0-20.0); Calcium, Blood 8.9 mg/dL (8.5-10.1); Creatinine, Blood 3.18 mg/dL (0.40-1.00); Globulin, Blood 3.3 g/dL (2.2-4.0); Potassium, Blood 5.9 mmol/L (3.5-5.5); Total Protein, Blood 6.2 g/dL (6.4-8.2)
[2022-08-09 04:09] LABS: Source, Urine Foley catheter
[2022-08-09 04:12] LABS: Blood, Urine 3+ (Neg); Glucose Qualitative, Urine 1+ (Neg); Ketones, Urine 1+ (Neg); Leukocyte Esterase, Urine 1+ (Neg); Nitrite, Urine Neg (Neg); Protein, Urine 2+ (Neg); Urobilinogen, Urine 1+ (Normal)
[2022-08-09 04:22] LABS: Appearance, Urine Clear (Clear); Bilirubin, Urine 1+ (Neg); Color, Urine Amber (P-Yellow)
[2022-08-09 04:23] LABS: Bacteria Few /hpf; Red Blood Cells, Urine 0-2 /hpf (0-2); Squamous Epithelial Cells Few /hpf (Few); White Blood Cells, Urine 0-2 /hpf (0-5)
[2022-08-09 04:24] LABS: Amorphous Light (0-Heavy); U Amphetamine Screen Not Detected; U Barbituate Screen Not Detected; U Benzodiazapine Screen Not Detected; U Buprenorphine Screen Not Detected; U Cannabinoids Screen Not Detected; U Cocaine Screen Not Detected; U Methadone Screen Not Detected; U Methamphetamine Screen Not Detected; U Opiates Screen Not Detected; U Oxycodone Screen Not Detected; U Phencyclidine Screen Not Detected; U Propoxyphene Screen Not Detected
[2022-08-09 06:17] LABS: Hematocrit 35.5 % (33.0-51.0); Hemoglobin 12.2 g/dL (11.5-16.0)
[2022-08-09 06:37] LABS: International Normalized Ratio 1.53; Prothrombin Time Results 15.6 Sec (9.7-11.5)
--- NOTE | 2022-08-09 07:39 | NUR ---
AT BEDSIDE AT 0700, PLACED CENTRAL LINE TO [facility] PT IS DISORIENTED, DIFFICULT TO UNDERSTAND SPEECH D/T SLURRED SPEECH. PT PLACED ON BIPAP D/T AUDIBLE WHEEZING, HX OF COPD, ACCESSORY MUSCLE USE. PT BECOMING MORE AGITATED THRASHING IN BED NOT FOLLOWING COMMANDS. ATIVAN GIVEN AND PT PLACED ON BIPAP. RT ADJUSTING BIPAP SETTINGS. ON LEVOPHED 24 MCG/MIN, VASOPRESSIN STARTED WELL AFTER CENTRAL LINE WAS CONFIRMED BY DR. GUAMAN. ON 15OML/HR IVF.
[2022-08-09 10:24] LABS: Base Excess Venous -4.3 mmol/L; Bicarbonate Venous 19.8 mmol/L (24.0-30.0); PCO2 Venous 61.8 mmHg (38-42); PO2 Venous 54.1 mmHg (38-42)
[2022-08-09 10:26] LABS: pH Blood Venous 7.19 (7.34-7.37)
[2022-08-09 10:38] LABS: Magnesium, Blood 2.1 mg/dL (1.6-2.4)
[2022-08-09 10:41] LABS: Albumin, Blood 3.2 g/dL (3.4-5.0); Bilirubin, Total 6.1 mg/dL (0.1-1.0); Bun/Creatinine Ratio 6.1 (12.0-20.0); Calcium, Blood 8.6 mg/dL (8.5-10.1); Creatinine, Blood 3.27 mg/dL (0.40-1.00); Globulin, Blood 3.1 g/dL (2.2-4.0); Phosphorus, Blood 3.5 mg/dL (2.5-4.9); Potassium, Blood 6.4 mmol/L (3.5-5.5); Total Protein, Blood 6.3 g/dL (6.4-8.2)
[2022-08-09 10:44] LABS: BASOPHILS ABSOLUTE AUTO 0.04 K/mm3 (0.00-0.23); BASOPHILS PERCENT AUTO 0 % (0-2); EOSINOPHILS ABSOLUTE AUTO 0.02 K/mm3 (0.00-0.68); EOSINOPHILS PERCENT AUTO 0 % (0-6); Hematocrit 39.7 % (33.0-51.0); Hemoglobin 13.3 g/dL (11.5-16.0); IMMATURE GRAN ABSOLUTE AUTO 0.11 K/mm3 (0.00-0.10); IMMATURE GRAN PERCENT AUTO 1 % (0-1); LYMPHOCYTES ABSOLUTE AUTO 1.14 K/mm3 (0.84-5.20); LYMPHOCYTES PERCENT AUTO 12 % (21-46); MONOCYTES PERCENT AUTO 12 % (4-13); Mean Corpuscular HGB Conc 33.5 g/dL (31.5-36.5); Mean Corpuscular Volume 105 fL (80-100); Mean Platelet Volume 9.9 fL (9.1-12.4); NEUTROPHILS ABSOLUTE AUTO 7.17 K/mm3 (1.96-9.15); NEUTROPHILS PERCENT AUTO 75 % (41-73); NRBC ABSOLUTE 0.02 K/mm3 (0.00-0.02); NRBC Auto 0.2 /100 WBC (0.0-0.2); Platelet Count 202 K/mm3 (150-400); RDW Coefficient Variation 14.2 % (11.7-14.2); RDW Standard Deviation 54.7 fL (35.1-46.3); White Blood Cell Count 9.58 K/mm3 (4.00-11.30)
--- NOTE | 2022-08-09 11:48 | NUR ---
PT STILL DROWSY AFTER ATIVAN THIS AM AND BIPAP ON. WILL RESPOND TO PAIN, STILL MUMBLES WITH SLURRED SPEECH. BOLUS ORDERED BY DR. GUAMAN PT IS STILL HYPOTENSIVE AND LEVOPHED IS AT 30MCG/MIN. DR. GUAMAN ATTEMPTED RADIAL A-LINE WITHOUT SUCCESS. RT WAS UNABLE TO GET ABG WELL. VBG WAS RAN INSTEAD AND DR. GUAMAN INFORMED. CALCIUM CHLORIDE STARTED. GOES BACK TO SLEEP QUICKLY WHEN LEFT ALONE. GRACIE S.O. STOPPED IN THIS AM, [facility]ARE IS CALLING TO CHECK IN ON HIM AND UPDATE IF NECESSARY.
--- NOTE | 2022-08-09 14:12 | NUR ---
Initial [facility] visit made this am. Pt with bipap on and started on pressors. Dr had placed central line. SO had been in earlier and left stating, he "didn't know what to do". Supportive t/c made to Jose with update on days events. He confirms that pt would want CPR and intubation at this time if needed. He was tearful on the phone. Pt is currently in acute renal and respiratory failure with acute hepatitis, daily heavy etoh use, comorbidities of morbid obesity, chronic back pain, GERD. She experienced falls at home and increasing weakness over past 1-2 weeks. Hope offered to SO for improvement in the next day or two. Invited him to call [facility] with any questions or for updates. Plan to make contact with Jose tomorrow for updates and support.
--- NOTE | 2022-08-09 17:24 | NUR ---
SUMMARY PT ON BIPAP ALL DAY. PT STILL HAS SLURRED MUMBLED SPEECH. DOES NOT FOLLOW COMMANDS OR COOPERATE WITH CARE. CLAMPS TEETH DOWN AND THRASHES HEAD SIDE TO SIDE FOR ORAL CARE AND WHEN NARE SPO2 PROBE IS MOVED. PT HAS STATED "NO!" TO PAIN SEVERAL TIMES TODAY WHICH IS THE ONLY CLEAR WORD THAT CAN BE COMPREHENDED. WILL FALL BACK TO SLEEP IF LEFT UNDISTURBED. TITRATING LEVOPHED DOWN. ON VASOPRESSIN AND NS AT 150ML/HR. PT'S SKIN IS VERY EXCORATED FROM FRONT TO BACK PERIAREA AND UNDER BREAST. POWDER APPLIED PER ORDERS.
[2022-08-10 04:17] LABS: Base Excess Venous -4.6 mmol/L; Bicarbonate Venous 19.8 mmol/L (24.0-30.0); PCO2 Venous 62.6 mmHg (38-42)
[2022-08-10 04:18] LABS: pH Blood Venous 7.19 (7.34-7.37)
[2022-08-10 04:50] LABS: BASOPHILS ABSOLUTE AUTO 0.03 K/mm3 (0.00-0.23); BASOPHILS PERCENT AUTO 0 % (0-2); EOSINOPHILS ABSOLUTE AUTO 0.06 K/mm3 (0.00-0.68); EOSINOPHILS PERCENT AUTO 1 % (0-6); Hematocrit 36.4 % (33.0-51.0); Hemoglobin 12.1 g/dL (11.5-16.0); IMMATURE GRAN ABSOLUTE AUTO 0.14 K/mm3 (0.00-0.10); IMMATURE GRAN PERCENT AUTO 2 % (0-1); LYMPHOCYTES ABSOLUTE AUTO 2.22 K/mm3 (0.84-5.20); LYMPHOCYTES PERCENT AUTO 26 % (21-46); MONOCYTES ABSOLUTE AUTO 1.25 K/mm3 (0.16-1.47); MONOCYTES PERCENT AUTO 15 % (4-13); Mean Corpuscular HGB 35.4 pg (26.0-34.0); Mean Corpuscular HGB Conc 33.2 g/dL (31.5-36.5); Mean Corpuscular Volume 106 fL (80-100); Mean Platelet Volume 9.7 fL (9.1-12.4); NEUTROPHILS ABSOLUTE AUTO 4.83 K/mm3 (1.96-9.15); NEUTROPHILS PERCENT AUTO 57 % (41-73); NRBC ABSOLUTE 0.05 K/mm3 (0.00-0.02); NRBC Auto 0.6 /100 WBC (0.0-0.2); Platelet Count 151 K/mm3 (150-400); RDW Coefficient Variation 13.9 % (11.7-14.2); RDW Standard Deviation 54.7 fL (35.1-46.3); Red Blood Cell Count 3.42 M/mm3 (3.80-5.20); White Blood Cell Count 8.53 K/mm3 (4.00-11.30)
[2022-08-10 05:15] LABS: Magnesium, Blood 1.7 mg/dL (1.6-2.4)
[2022-08-10 05:17] LABS: International Normalized Ratio 1.6; Prothrombin Time Results 16.3 Sec (9.7-11.5)
[2022-08-10 06:03] LABS: Albumin, Blood 2.7 g/dL (3.4-5.0); Albumin/Globulin Ratio 0.9 (0.8-1.8); Bilirubin, Total 5.1 mg/dL (0.1-1.0); Bun/Creatinine Ratio 6.2 (12.0-20.0); Creatinine, Blood 2.92 mg/dL (0.40-1.00); Globulin, Blood 3.1 g/dL (2.2-4.0); Phosphorus, Blood 3.3 mg/dL (2.5-4.9); Potassium, Blood 4.7 mmol/L (3.5-5.5); Total Protein, Blood 5.8 g/dL (6.4-8.2)
--- NOTE | 2022-08-10 06:23 | NUR ---
SHIFT SUMMARY: AT BEGINNING OF SHIFT, PATIENT EXTREMELEY AGITATED ON THE BIPAP. PATIENT IS VERY SENSITIVE TO ATIVAN. CONFUSED AND SHOUTING AT STAFF. IN RESTRAINTS ATTEMPTING TO PULL LINES AND TUBES. MD NOTIFIED, ORDERS RECEIVED FOR PRECEDEX AND ZYPREXA. PATIENT TOLERATED WELL. SR ON MONITOR, MAP > 65 MAINTAINED WITH PRESSERS, AFEBRILE. INTERMITTENTLY ON BIPAP AND NC OVERNIGHT. PATIENT DOES NOT LIKE BIPAP. SETTINGS CURRENTLY 20/12 40%. ABDOMEN DISTENDED. NO BM OVERNIGHT. DALY IN PLACE, UOP DECREASING. SKIN APPEARS BETTER THAN ADMISSION. PATIENT RESPONDING WELL TO MICAFUNGIN POWDER.
--- NOTE | 2022-08-10 11:52 | NUR ---
UPDATE: PT MENTATION CHANGE. DR CHAVIS @ BEDSIDE FOR AM ROUNDS. PT VERY DIFF TO AROUSE, PRECEDEX NOW 0.3mcg/kg/hr. PT STIRS W/ REPEATED NOX STIM, BEGINS TO PULL @ RESTRAINTS, YELL INTO BiPAP MASK. NO WORDS, ONLY SOUNDS. UNABLE TO OPEN EYES OR SQUEEZE HANDS UPON COMMAND. THRASHING HEAD SIDE TO SIDE & DISPLACING BiPAP MASK. VERBAL ORDERS FOR 1mg IVP ATIVAN. PT MEDICATED ACCORDINGLY. PLAN FOR HEAD CT IF MENTATION DOES NOT IMPROVE.
[2022-08-10 12:12] LABS: PCO2 Arterial 56.7 mmHg (35-45); PO2 Arterial 81.1 mmHg (80-100); pH Blood Arterial 7.24 (7.35-7.45)
--- NOTE | 2022-08-10 13:11 | NUR ---
PT TO CT & BACK W/ OUT INCIDENT.
--- NOTE | 2022-08-10 16:00 | NUR ---
PT CONTINUES TO DO WELL S/P IVP ATIVAN, TOLERATING ORAL CARE & POSITION CHANGES MUCH MORE THAN THIS MORNING. NO VERBAL RESPONSE, ONLY MOANS, WINCES TO PAIN, UNABLE TO FOLLOW COMMANDS & MINIMAL INTENTIONAL MOVEMENT. PRECEDEX @ 0.3mcg/kg/min.
--- NOTE | 2022-08-10 16:49 | NUR ---
Spoke to pt's by phone, he states he's at home caring for his ranch animals, and will return this evening. He reports the last time pt drank alcohol was last wednesday evening. Plan to meet with pt tomorrow, to remain an extra layer of support.
--- NOTE | 2022-08-10 18:49 | NUR ---
SHIFT SUMMARY: SEE PREVIOUS NOTATION FOR PT PROGRESSION. PRESSORS TITRATED DOWN T/O THE SHIFT, NOW ON SB. MAPS >70. PRECEDEX TITRATED DOWN TO 0.3mcg/kg/hr, PT TOLERATING RN CARE WELL. GIVEN IVP ATIVAN FOR WITHDRAWAL SYMPTOMS PER PARTHA. W/ SEDATION VACATION, PT BECOMES HIGHLY AGITATED, SCREAMING INTO BiPAP MASK, THRASHING & PULLING AT RESTRAINTS, HOWEVER SHE IS ABLE TO FULLY ENUNCIATE WORDS. THOUGH SHE IS STILL CONFUSED, YELLS "WHERE AM I" "WHERE I AM GOING", NO EVIDENCE OF LEARNING W/ ATTEMPTS AT REDIRECTION. PT YELLS TO TAKE HER MASK OFF. PT ONLY ABLE TO OPEN EYES UPON COMMAND, DOES NOT DEMONSTRATE ANY OTHER SAFE BEHAVIORS. PT QUICKLY RETURNS TO RESTING AFTER IVP ATIVAN.
[2022-08-11 04:54] LABS: BASOPHILS ABSOLUTE AUTO 0.03 K/mm3 (0.00-0.23); BASOPHILS PERCENT AUTO 0 % (0-2); EOSINOPHILS ABSOLUTE AUTO 0.01 K/mm3 (0.00-0.68); EOSINOPHILS PERCENT AUTO 0 % (0-6); Hematocrit 36.7 % (33.0-51.0); Hemoglobin 12.1 g/dL (11.5-16.0); IMMATURE GRAN ABSOLUTE AUTO 0.31 K/mm3 (0.00-0.10); IMMATURE GRAN PERCENT AUTO 4 % (0-1); LYMPHOCYTES ABSOLUTE AUTO 1.75 K/mm3 (0.84-5.20); LYMPHOCYTES PERCENT AUTO 23 % (21-46); MONOCYTES ABSOLUTE AUTO 0.55 K/mm3 (0.16-1.47); MONOCYTES PERCENT AUTO 7 % (4-13); Mean Corpuscular HGB 34.4 pg (26.0-34.0); Mean Corpuscular Volume 104 fL (80-100); Mean Platelet Volume 9.8 fL (9.1-12.4); NEUTROPHILS ABSOLUTE AUTO 4.87 K/mm3 (1.96-9.15); NEUTROPHILS PERCENT AUTO 65 % (41-73); NRBC ABSOLUTE 0.08 K/mm3 (0.00-0.02); NRBC Auto 1.1 /100 WBC (0.0-0.2); Platelet Count 152 K/mm3 (150-400); RDW Coefficient Variation 13.6 % (11.7-14.2); RDW Standard Deviation 51.8 fL (35.1-46.3); Red Blood Cell Count 3.52 M/mm3 (3.80-5.20); White Blood Cell Count 7.52 K/mm3 (4.00-11.30)
[2022-08-11 04:56] LABS: Albumin, Blood 2.5 g/dL (3.4-5.0); Albumin/Globulin Ratio 0.7 (0.8-1.8); Bilirubin, Direct 4.1 mg/dL (0.0-0.3); Bilirubin, Indirect 0.6 mg/dL (0.1-0.7); Bilirubin, Total 4.7 mg/dL (0.1-1.0); Bun/Creatinine Ratio 7.6 (12.0-20.0); Calcium, Blood 9.2 mg/dL (8.5-10.1); Creatinine, Blood 2.36 mg/dL (0.40-1.00); Globulin, Blood 3.5 g/dL (2.2-4.0); Magnesium, Blood 1.4 mg/dL (1.6-2.4); Phosphorus, Blood 2.4 mg/dL (2.5-4.9); Potassium, Blood 4.7 mmol/L (3.5-5.5)
--- NOTE | 2022-08-11 06:19 | NUR ---
SHIFT SUMMARY: PATIENT LARGELY UNCHANGED FROM PREVIOUS SHIFT. AGITATED WITH BIPAP, PRN ATIVAN GIVEN PER EMAR. PATIENT STILL CONFUSED AND EXTRMELY AGITATED WHEN AWAKE. UNABLE TO REORIENT OR CALM DOWN. PATIENT ON BIPAP OVERNIGHT . SETTINGS DECREASED TO 19/8 35%. BP ADEQUATE WITHOUT USE OF PRESSERS. CHG BATH GIVEN. ON PRECEDEX. GOT MAG REPLACEMENT THIS AM.
--- NOTE | 2022-08-11 07:00 | NUR ---
Assumed care at 0700 Report received from foreign exchange student coordinator RN. Pt has required ativan IV approx every 2 hours, yelling out and thrashing when awake. Currently tolerating Bipap 18/8 at 30% FIO2 with an SpO2 of 93%. No BM since hospitalization. Hutton draining clear yellow urine. No family currently at bedside. RN to continue to monitor.
--- NOTE | 2022-08-11 08:33 | NUR ---
Pt discussed with Historical Archeologist Plan is to allow pt to awaken and minimize use of Ativan. Continue precedex drip at current rate. Bipap removed by RT. Pt placed on 5L NC, SpO2 95%. She currenlty states "no" when asking her to open her eyes and will not follow commands consistently. Asleep when not being stimulated. RN to continue to monitor.
[2022-08-11 12:58] LABS: PCO2 Arterial 49.7 mmHg (35-45); pH Blood Arterial 7.29 (7.35-7.45)
--- NOTE | 2022-08-11 18:46 | NUR ---
END OF SHIFT SUMMARY NEURO STATUS UNCHANGED. NO ATIVAN GIVEN THIS SHIFT. PRECEDEX DRIP CONTINUED. PT EITHER SLEEPING OR YELLING. DOES NOT CONSISTENTLY FOLLOW COMMANDS. BIPAP OFF ALL SHIFT, 4L NC, O2 SAT >90% NPO DUE TO UNABLE TO FOLLOW COMMANDS OR SAFELY SWALLOW DALY PATENT AND DRAINING CLEAR [place] URINE SKIN REMAINS UNCHANGED. PICTURES IN CHART. OPEN SKIN CLEANED AND POWDER APPLIED ORDERED. SIGNIFICANT OTHER AND SISTER IN LAW IN TO VISIT PT. UPDATED ON STATUS, ALL QUESTIONS ANSWERED.
[2022-08-12 04:34] LABS: Hematocrit 36.4 % (33.0-51.0); Mean Corpuscular HGB 35.6 pg (26.0-34.0); Mean Corpuscular Volume 108 fL (80-100); Mean Platelet Volume 9.7 fL (9.1-12.4); NRBC ABSOLUTE 0.13 K/mm3 (0.00-0.02); NRBC Auto 1.2 /100 WBC (0.0-0.2); Platelet Count 151 K/mm3 (150-400); RDW Coefficient Variation 13.9 % (11.7-14.2); RDW Standard Deviation 55.8 fL (35.1-46.3); Red Blood Cell Count 3.37 M/mm3 (3.80-5.20); White Blood Cell Count 11.29 K/mm3 (4.00-11.30)
[2022-08-12 04:44] LABS: Albumin, Blood 2.5 g/dL (3.4-5.0); Albumin/Globulin Ratio 0.7 (0.8-1.8); Bilirubin, Indirect 0.7 mg/dL (0.1-0.7); Bilirubin, Total 3.7 mg/dL (0.1-1.0); Bun/Creatinine Ratio 10.4 (12.0-20.0); Calcium, Blood 9.1 mg/dL (8.5-10.1); Creatinine, Blood 2.4 mg/dL (0.40-1.00); Globulin, Blood 3.5 g/dL (2.2-4.0); Magnesium, Blood 1.9 mg/dL (1.6-2.4); Phosphorus, Blood 2.9 mg/dL (2.5-4.9); Potassium, Blood 4.8 mmol/L (3.5-5.5)
[2022-08-12 04:46] LABS: BAND PERCENT MAN 13 % (0-8); BASOPHILS PERCENT MAN 0 % (0-2); EOSINOPHILS PERCENT MAN 0 % (0-6); LYMPHOCYTES ABSOLUTE MAN 0.79 K/mm3 (0.84-5.20); LYMPHOCYTES PERCENT MAN 7 % (21-46); METAMYELOCYTE ABSOLUTE MAN 0.11 K/mm3 (0.00-0.00); METAMYELOCYTE PERCENT MAN 1 % (0-0); MONOCYTES ABSOLUTE MAN 1.01 K/mm3 (0.16-1.47); MONOCYTES PERCENT MAN 9 % (4-13); MYELOCYTE ABSOLUTE MAN 0.22 K/mm3 (0.00-0.00); MYELOCYTE PERCENT MAN 2 % (0-0); NEUTROPHILS ABSOLUTE MAN 9.14 K/mm3 (1.96-9.15); SEG NEUTROPHILS PERCENT MAN 68 % (41-73); TOTAL CELLS COUNTED 100
--- NOTE | 2022-08-12 06:28 | NUR ---
SHIFT SUMMARY: PATIENT LARGELY UNCHANGED FROM PREVIOUS SHIFT. AGITATED WITH BIPAP. GIVEN PER EMAR. PATIENT STILL CONFUSED AND EXTRMELY AGITATED WHEN AWAKE. UNABLE TO REORIENT. PATIENT HAS NO DISCERNABLE WORDS. PATIENT ON NC/BIPAP OVERNIGHT . SETTINGS 18/8 30%. MAP >70 MAINTAINED WITH LEVOPHED. BATH GIVEN. ON PRECEDEX.
--- NOTE | 2022-08-12 18:16 | NUR ---
SUMMARY PT TAKEN OFF PRECEDEX AND BIPAP THIS AM. TRYING TO LIMIT SEDATIVES TO ASSESS MENTATION. STILL ONLY MOANS AND DOES NOT FOLLOW COMMANDS. DIFFICULT TO DO ORAL CARE BECAUSE SHE CLAMPS MOUTH DOWN. SPOKE WITH DR. SINGER AND DR. CHAVIS ABOUT NUTRITION, PT HAS NOT EATEN ANYTHING SINCE SHE HAS BEEN HERE, NO NEW ORDERS FOR NUTRITION. PSYCH CONSULT PLACED D/T DELIRIUM BUT WILL BE DIFFICULT TO ASSESS PT BECAUSE SHE IS NOT ALERT ENOUGH. NO OTHER CHANGES THIS SHIFT.
--- NOTE | 2022-08-13 03:30 | NUR ---
SHORTLY BEFORE 0300, PATIENT'S BIPAP ALARMS GOING OFF DUE TO LOW TIDAL VOLUMES. AUTHOR INCREASED FIO2 AND CALLED RT FOR ASSISTANCE. RT ABLE TO NT SUCTION WHICH BROUGHT UP LARGE AMOUNT OF BRIGHT RED BLOOD. PT NOT ABLE TO KEEP OWN AIRWAY OPEN AND ULTIMATELY CODE BLUE CALLED FOR RESPIRATORY FAILURE. PATIENT NEVER LOST A PULSE DURING THE EVENT. DEFIB PADS PLACED WHILE BAG MASKING PATIENT. ONCE CODE TEAM PRESENT, PATIENT RECEIVED 100MG KETAMINE AT 0314 AND 70MG ROCURONIUM AT 0314. PATIENT WAS THEN INTUBATED WITH A 7.5 TUBE MEASURED AT 23CM AT THE TEETH.
[2022-08-13 04:13] LABS: Hematocrit 40.8 % (33.0-51.0); Hemoglobin 12.6 g/dL (11.5-16.0); Mean Corpuscular HGB 35.1 pg (26.0-34.0); Mean Corpuscular HGB Conc 30.9 g/dL (31.5-36.5); Mean Platelet Volume 9.4 fL (9.1-12.4); NRBC ABSOLUTE 0.21 K/mm3 (0.00-0.02); NRBC Auto 1.5 /100 WBC (0.0-0.2); Platelet Count 171 K/mm3 (150-400); RDW Coefficient Variation 14.3 % (11.7-14.2); RDW Standard Deviation 60.2 fL (35.1-46.3); Red Blood Cell Count 3.59 M/mm3 (3.80-5.20); White Blood Cell Count 14.46 K/mm3 (4.00-11.30)
[2022-08-13 04:14] LABS: Mean Corpuscular Volume 114 fL (80-100)
[2022-08-13 04:27] LABS: Albumin, Blood 2.8 g/dL (3.4-5.0); Anion Gap 9 mmol/L (6-16); Blood Urea Nitrogen 29 mg/dL (8-24); Bun/Creatinine Ratio 9.7 (12.0-20.0); CO2, Blood 25 mmol/L (21-32); Calcium, Blood 9.2 mg/dL (8.5-10.1); Chloride, Blood 95 mmol/L (98-108); Creatinine, Blood 2.98 mg/dL (0.40-1.00); Glomerular Filtration Rate 18 (60-); Glucose, Blood 130 mg/dL (70-99); Phosphorus, Blood 5.2 mg/dL (2.5-4.9); Potassium, Blood 5.5 mmol/L (3.5-5.5); Sodium, Blood 129 mmol/L (136-145)
[2022-08-13 04:36] LABS: BAND PERCENT MAN 5 % (0-8); BASOPHILS PERCENT MAN 0 % (0-2); EOSINOPHILS ABSOLUTE MAN 0.14 K/mm3 (0.00-0.68); EOSINOPHILS PERCENT MAN 1 % (0-6); LYMPHOCYTES % ATYPICAL MANUAL 1 % (0-0); LYMPHOCYTES ABSOLUTE MAN 3.18 K/mm3 (0.84-5.20); LYMPHOCYTES PERCENT MAN 21 % (21-46); METAMYELOCYTE ABSOLUTE MAN 0.86 K/mm3 (0.00-0.00); METAMYELOCYTE PERCENT MAN 6 % (0-0); MONOCYTES ABSOLUTE MAN 1.15 K/mm3 (0.16-1.47); MONOCYTES PERCENT MAN 8 % (4-13); MYELOCYTE ABSOLUTE MAN 0.43 K/mm3 (0.00-0.00); MYELOCYTE PERCENT MAN 3 % (0-0); NEUTROPHILS ABSOLUTE MAN 8.67 K/mm3 (1.96-9.15); SEG NEUTROPHILS PERCENT MAN 55 % (41-73); TOTAL CELLS COUNTED 100
[2022-08-13 04:57] LABS: PCO2 Arterial 62.6 mmHg (35-45); PO2 Arterial 145 mmHg (80-100)
[2022-08-13 04:58] LABS: pH Blood Arterial 7.19 (7.35-7.45)
--- NOTE | 2022-08-13 06:37 | NUR ---
SHIFT SUMMARY: PLEASE SEE PREVIOUS NOTES FOR EVENTS THIS SHIFT. OVERALL PATIENT SEEMED TO DECOMPENSATE OVERNIGHT, ULTIMATELY CULMINATING IN INTUBATION. HEENT: EYES REMAIN CLOSED TO SOUND, PRESSURE OR PAIN STIMULUS. BLOODY SECRETIONS PO AND INLINE. NEURO: WITHDRAWS TO PAIN IN EXTREMITIES, NOT FOLLOWING ANY COMMANDS. NOW SEDATED WITH VERSED. RESP: INTUBATED. AC MODE; PEEP 8; RR 24; FIO2 80%. ETT 23CM AT TEETH. CARDS: ST, HR 100-120BPM. LEVOPHED GTT TITRATED UP AND DOWN. VASOPRESSIN ADDED. GI/: VERY LOW UOP. MD AWARE. NO BM OVERNIGHT. OG PLACED TO LIS DURING RSI. INTEG: EXCESSIVE EXCORIATION IN GROIN, SHEILA AREA AND SKIN FOLDS. NO NEW SKIN ISSUES NOTED. ENDO: N/A
--- NOTE | 2022-08-13 09:48 | NUR ---
Assumed care of pt at 0700. Report received from Alex CHRISTY. Pt sedated with 1 mg/hr versed. RASS -4, but pt not tolerating vent and coughing. Medicated for pain; this helped patient become more comfortable. #7.5 ETT, 23 cm at teeth. Vent 24, 27/8, 80% at beginning of shift. RT decreased FiO2 to 70% and pt's SpO2 is 99%. Pt breathing at ventilator set rate of 24. Moderate amounts of thin red suctioned from ETT. Bed bath and chlorhexidine bath completed. Cleaned excoriations beneath breasts and in abd/groin folds. ABD pads in place to absorb moisture.
--- NOTE | 2022-08-13 10:33 | NUR ---
Call placed to patient's spouse, Edgar, to give update on patient care and notify him that Toribio was placed on a ventilator overnight. Edgar states he will be in to see patient later today.
--- NOTE | 2022-08-13 12:00 | NUR ---
Spoke to cranberry grower, Dr Landry, to notify that subcutaneous heparin was held due to pt oozing from previous injection site, as well as jos blood suctioned from airway during previous shift - approx 150 mL in suction cannister. Provider ordered coagulation studies and other labs.
[2022-08-13 12:28] LABS: Hematocrit 36.3 % (33.0-51.0); Hemoglobin 11.3 g/dL (11.5-16.0); Mean Corpuscular HGB Conc 31.1 g/dL (31.5-36.5); Mean Corpuscular Volume 112 fL (80-100); Mean Platelet Volume 9.7 fL (9.1-12.4); NRBC ABSOLUTE 0.14 K/mm3 (0.00-0.02); NRBC Auto 1.3 /100 WBC (0.0-0.2); Platelet Count 162 K/mm3 (150-400); RDW Coefficient Variation 14.2 % (11.7-14.2); RDW Standard Deviation 59.3 fL (35.1-46.3); Red Blood Cell Count 3.23 M/mm3 (3.80-5.20); White Blood Cell Count 10.73 K/mm3 (4.00-11.30)
[2022-08-13 12:59] LABS: Albumin, Blood 2.6 g/dL (3.4-5.0); Albumin/Globulin Ratio 0.8 (0.8-1.8); Bilirubin, Total 3.9 mg/dL (0.1-1.0); Bun/Creatinine Ratio 10.9 (12.0-20.0); Calcium, Blood 8.8 mg/dL (8.5-10.1); Creatinine, Blood 2.85 mg/dL (0.40-1.00); Globulin, Blood 3.2 g/dL (2.2-4.0); Potassium, Blood 4.1 mmol/L (3.5-5.5); Total Protein, Blood 5.8 g/dL (6.4-8.2)
[2022-08-13 13:01] LABS: D-Dimer, Quantitative 0.94 mg/L FEU (0.00-0.52); Prothrombin Time Results 40.2 Sec (9.7-11.5)
[2022-08-13 13:10] LABS: BAND PERCENT MAN 11 % (0-8); BASOPHILS PERCENT MAN 1 % (0-2); EOSINOPHILS ABSOLUTE MAN 0.32 K/mm3 (0.00-0.68); EOSINOPHILS PERCENT MAN 3 % (0-6); LYMPHOCYTES % ATYPICAL MANUAL 1 % (0-0); LYMPHOCYTES PERCENT MAN 13 % (21-46); METAMYELOCYTE ABSOLUTE MAN 0.64 K/mm3 (0.00-0.00); METAMYELOCYTE PERCENT MAN 6 % (0-0); MONOCYTES ABSOLUTE MAN 1.39 K/mm3 (0.16-1.47); MONOCYTES PERCENT MAN 13 % (4-13); MYELOCYTE ABSOLUTE MAN 0.42 K/mm3 (0.00-0.00); MYELOCYTE PERCENT MAN 4 % (0-0); NEUTROPHILS ABSOLUTE MAN 6.33 K/mm3 (1.96-9.15); SEG NEUTROPHILS PERCENT MAN 48 % (41-73); TOTAL CELLS COUNTED 100
[2022-08-13 13:16] LABS: International Normalized Ratio 4.21
--- NOTE | 2022-08-13 15:26 | NUR ---
Discussed critical high INR with Dr Landry. Heparin subcutaneous discontinued. IV vitamin K given.
--- NOTE | 2022-08-13 17:35 | NUR ---
SUMMARY Neuro: Pt initially sedated with versed drip at 1 mg/hr. Drip was stopped and patient now receives IV push versed as needed for agitation and IV push fentanyl for pain. Currently RASS -3 but constantly moving eyes. Does not make eye contact but able to nod head yes/no to answer questions. Nods head "yes" when asked if she is having pain. Discussed concerns about pt pain with Dr Landry. Provider clairfied with pt's spouse that pt does not typically take narcotic pain medication at home. Patient gently kicking legs in bed, but pt's spouse states that this is typical behavior for the patient while she is sleeping. Pupils 3 mm, PERRL. Musculoskeletal: Moves all extremities with equal strength and range of motion. In bilateral wrist restraints to prevent self extubation. Pt often reaches for ET tube when restraints are removed for repositioning. Respiratory: 7.5 cm ETT at expected location of 23 cm at teeth. Vent settings ACPC rate 24, PI 27, PEEP 8, FiO2 55%. SpO2 90% or greater. Wheezes to upper lobes. Lungs sounds diminished otherwise. Thick pink sputum suctioned from ETT. Specimen sent for culture. Cardiac: ST per monitor, rate 100-115. BP stable with 0.04 unit/min vasopressin and 4 mcg/min levophed, which is an improvement as pt was on 12 mcg/min levophed at beginning of shift. Capillary refill <3 seconds BUE and BLE. GI: No BM this shift. Awaiting bowel care orders from Dr Richey. OG tube remains to LIS with small amount of bile drainage. Moderate distended abd. No signs of tenderness with palpation. Hypoactive BT : Excellent urine output this shift following administration of lasix. Tiffany urine drained from escamilla catheter. Skin: Extensive wound care performed to all excoriated sites. Skin folds protected with ABD pads. Wound care consultation ordered, however nurse unable to see patient today. Full bedbath and chlorhexidine wipe down performed early this shift. Psychosocial: Update given to pt's spouse, Edgar, and Edgar's sister.
[2022-08-14 00:16] LABS: Hemoglobin 10.7 g/dL (11.5-16.0)
--- NOTE | 2022-08-14 01:32 | NUR ---
UPDATE: PATIENT HAS BEEN RESTLESS AND AGITATED THROUGHOUT THE SHIFT THUS FAR. PRN MIDAZOLAM GIVEN, BUT EFFECTS ARE NOT SUSTAINED. PATIENT HAS DISCONNECTED HERSELF FROM VENTILATOR DUE TO THRASHING HEAD BACK AND FORTH. SHE IS ALSO FIGHTING AGAINST HER RESTRAINTS. ATTEMPTED X2 TO CALL ON-CALL PULM/CC MD FOR INSTRUCTION. PER DEC, PRECEDEX STILL ACTIVE ORDER AND PER MD PROGRESS NOTES, AVOIDING BENZOS MUCH POSSIBLE. HAVE NOT HEARD BACK FROM MD, WILL RESTART PRECEDEX AT THIS TIME.
[2022-08-14 05:27] LABS: PCO2 Arterial 37.7 mmHg (35-45); pH Blood Arterial 7.42 (7.35-7.45)
[2022-08-14 05:44] LABS: Hematocrit 33.9 % (33.0-51.0); Mean Corpuscular HGB 35.3 pg (26.0-34.0); Mean Corpuscular HGB Conc 32.4 g/dL (31.5-36.5); Mean Corpuscular Volume 109 fL (80-100); Mean Platelet Volume 10.4 fL (9.1-12.4); NRBC ABSOLUTE 0.25 K/mm3 (0.00-0.02); Platelet Count 182 K/mm3 (150-400); RDW Coefficient Variation 14.1 % (11.7-14.2); RDW Standard Deviation 56.4 fL (35.1-46.3); Red Blood Cell Count 3.12 M/mm3 (3.80-5.20); White Blood Cell Count 12.33 K/mm3 (4.00-11.30)
[2022-08-14 06:04] LABS: International Normalized Ratio 1.64; Prothrombin Time Results 16.7 Sec (9.7-11.5)
[2022-08-14 06:30] LABS: Albumin, Blood 2.5 g/dL (3.4-5.0); Anion Gap 13 mmol/L (6-16); Blood Urea Nitrogen 32 mg/dL (8-24); Bun/Creatinine Ratio 17.3 (12.0-20.0); CO2, Blood 25 mmol/L (21-32); Calcium, Blood 8.7 mg/dL (8.5-10.1); Chloride, Blood 97 mmol/L (98-108); Creatinine, Blood 1.85 mg/dL (0.40-1.00); Glomerular Filtration Rate 32 (60-); Glucose, Blood 105 mg/dL (70-99); Potassium, Blood 3.8 mmol/L (3.5-5.5); Sodium, Blood 135 mmol/L (136-145)
--- NOTE | 2022-08-14 06:41 | NUR ---
SHIFT SUMMARY: GENERAL: PLEASE SEE PREVIOUS NOTE FOR INTERVAL EVENTS OVERNIGHT. NEURO: AUDREY ORIENTATION; PT IS NOT OPENING EYES OR FOLLOWING COMMANDS. AFEBRILE. SHE WAS VERY AGITATED AND RESTLESS THROUGH THE FIRST HALF OF THE SHIFT. NOW ON PRECEDEX GTT AND APPEARS RELAXED AND COMFORTABLE. RASS -2/-3. CARDS: LEVOPHED GTT UTILIZED TO KEEP MAP >65. HR HAS COME DOWN NICELY ON PRECEDEX; CURRENTLY SR WITH RATES IN THE UPPER 80S. RESP: REMAINS ON VENTILATOR 22/8, FIO2 40% AND RATES HIGH-20S TO LOW-30S. MILD SECRETION BURDEN FROM ETT. MINIMAL BLOODY SECRETIONS PO. MS: MOVES ALL EXTREMITIES SPONTANEOUSLY. ROM PERFORMED Q2HR WITH REPOSITIONING. INTEG: ONLY UPDATE IS SOME RLE BRUISING. OTHERWISE NO CHANGES. GI/: UOP BETTER THAN LAST NIGHT, BUT STILL ON LOW END. NO BM OVERNIGHT DESPITE BOWEL REGIMEN BEING STARTED YESTERDAY.
[2022-08-14 07:04] LABS: BAND PERCENT MAN 11 % (0-8); BASOPHILS PERCENT MAN 0 % (0-2); EOSINOPHILS ABSOLUTE MAN 0.36 K/mm3 (0.00-0.68); EOSINOPHILS PERCENT MAN 3 % (0-6); LYMPHOCYTES ABSOLUTE MAN 1.97 K/mm3 (0.84-5.20); LYMPHOCYTES PERCENT MAN 16 % (21-46); METAMYELOCYTE ABSOLUTE MAN 0.49 K/mm3 (0.00-0.00); METAMYELOCYTE PERCENT MAN 4 % (0-0); MONOCYTES ABSOLUTE MAN 1.23 K/mm3 (0.16-1.47); MONOCYTES PERCENT MAN 10 % (4-13); MYELOCYTE ABSOLUTE MAN 0.61 K/mm3 (0.00-0.00); MYELOCYTE PERCENT MAN 5 % (0-0); NEUTROPHILS ABSOLUTE MAN 7.64 K/mm3 (1.96-9.15); SEG NEUTROPHILS PERCENT MAN 51 % (41-73); TOTAL CELLS COUNTED 100
--- NOTE | 2022-08-14 07:15 | NUR ---
Assumed care of pt at 0700. Report received from Alex CHRISTY. Pt sedated with 0.5 mcg/kg/hr precedex. RASS -3. Vent settings ACPC 24 / 22/8 / 40% FiO2. Levophed at 5 mcg/min for BP stabilization.
[2022-08-14 11:58] LABS: Influenza A, PCR NEGATIVE (NEGATIVE); Influenza B, PCR NEGATIVE (NEGATIVE); Resp Syncytial Virus, PCR NEGATIVE (NEGATIVE); SARS-Cov-2 (COVID-19) PCR, MMC NEGATIVE (NEGATIVE)
--- NOTE | 2022-08-14 17:02 | NUR ---
SUMMARY Neuro: Pt on precedex 0.5 mcg/kg/hr. RASS -3. 3 mm pupils, PERRL. Febrile. T-max 103.1 oral temp. Esophageal probe inserted for central temperature monitoring. Cooling blanket in place. Current temp 101.8. Musc: Moves all extremities with equal strength and range of motion. Total care for all ADLS. Resp: Lungs coarse in upper lobes, dim in lowers. ETT at expected location of 23 cm at teeth. Vent settings PS 12/8, 40%. RR is currently 29 with tidal volumes 350-400 mL. SpO2 93%. Decreased ET secretions compared with previous day. Cardiac: Levophed at 4 mcg/min. MAP greater than 65. SR per monitor. BP stable. GI: Plan to start nutrition. Glucerna at 30 mL/hr. Hypoactive BT. No BM this shift despite suppository and MOM. Hypoactive BT. : Good urine output of emmett urine. Skin: Wound care nurse in to see patient. Barrier cream + antifungal powder mixed and applied to skin breakdown with ABD pads to manage drainage. Psych: Pt's spouse and sister in law in to see patient. Update provided.
--- NOTE | 2022-08-14 19:15 | NUR ---
ASSUMED CARE: PT ON PRECEDEX @ 0.5, LEVO @ 4. ON BREATHING TRIAL. IN BILATERAL WRIST RESTRAINTS. COOLING BLANKETS IN PLACE. TEMP 101.3 AT THIS TIME.
[2022-08-15 04:20] LABS: Albumin, Blood 2.4 g/dL (3.4-5.0); Anion Gap 10 mmol/L (6-16); Blood Urea Nitrogen 32 mg/dL (8-24); Bun/Creatinine Ratio 28.8 (12.0-20.0); CO2, Blood 27 mmol/L (21-32); Calcium, Blood 8.6 mg/dL (8.5-10.1); Chloride, Blood 99 mmol/L (98-108); Creatinine, Blood 1.11 mg/dL (0.40-1.00); Glomerular Filtration Rate 59 (60-); Glucose, Blood 136 mg/dL (70-99); Phosphorus, Blood 1.7 mg/dL (2.5-4.9); Potassium, Blood 3.9 mmol/L (3.5-5.5); Sodium, Blood 136 mmol/L (136-145)
--- NOTE | 2022-08-15 05:44 | NUR ---
PT CONTINUES ON SPONTANEOUS VENT SETTINGS. LEVO AT 2, PRECEDEX AT 0.7. COOLING BLANKET REMOVED SINCE TEMPERATURE IS 98.9. WOUND CARE ORDERS IN PLACE.DALY IN PLACE, DRAINING TO GRAVITY.
--- NOTE | 2022-08-15 07:18 | NUR ---
Received report from Maria Fernanda CHRISTY. Patient is intubated with 7.7 Et and 23 cm at teeth with vent settings of Spon. mode and PS 12/40/8 and sats 95%. Minimal reaction to verbal stimuli and will reassess later. She has RIS and dressing intact and site WNL's and is infusing NS TKO, Levophed at 2 mcg/min, Precedex at 0.7 mcg/kg/hr, and abx. She has 16Fr escamilla draining to gravity light emmett colored urine adquate amounts. SCD's in place to bilateral LE's. She has pink cream and anti fungal powder with ABD pads in all folds to excoriated areas. She has bilateral soft wrist restraints for patient and line/tube safety.
[2022-08-15 07:57] LABS: PO2 Arterial 66.6 mmHg (80-100)
--- NOTE | 2022-08-15 09:30 | NUR ---
Patient is slightly more alert. She opens eyes to verbal stimuli, but still does not follow commands. Spouse at bedside. Dr Mack did zoom assessment and Gutierrez is here and went in and spoke to spouse. The plan is to wean vent settings down before any other trials. No vent setting changes and or gtt's. Patient tolerated meds through OG and IV, not as tolerable with oral care. gross movements distal extremities, moves head back and forth. SCD's and bilateral soft wrist restraints remains in place.
--- NOTE | 2022-08-15 11:30 | NUR ---
Patient continues to rest on Precedex at 0.7 mcg/kg/hr. Current vent settings of Spon. PS12/35/8 with sats >90%. She still arouses to verbal and painful stimuli. Patient shakes head back and forth as if answering questions, but does not follow commands. Potassium Phos. started 15 mmol.. Hutton out continues to be adequate emmett colored urine. Continue ot reposition.
--- NOTE | 2022-08-15 13:55 | NUR ---
No significant changes with patientvent settings Spon. PS 35/8. RIJ infusing NS TKO, Levophed at 2 mcg/min, Precedex at 0.7 mcg/kg/hr. Potassium phos done and added albumin 2 doses.Hutton patent, SCD's and restraints remains in place.
--- NOTE | 2022-08-15 15:50 | NUR ---
ASSUMED CARE REPORT RECEIVED FROM MARK HAUSER RN. PT RESTING IN BED SEDATED AND INTUBATED. PT MOVES ALL EXTREMITIES SPONTANEOUSLY BUT DOESN'T APPEAR TO BE PURPOSEFUL. LUNGS HAVE FAINT EXPIRATORY WHEEZING. SR WITH RATE IN THE 90S, LEVOPHED INFUSING AT 2MCG/MIN. TYLENOL GIVEN VIA OGT FOR TEMP 101.1F THEN RECLAMPED. BT HYPOACTIVE. DALY DRAINING YELLOW URINE. PT'S SO AT THE BEDSIDE AND WAS UPDATED. CONTINUE TO MONITOR.
--- NOTE | 2022-08-15 20:16 | NUR ---
ASSUMED CARE OF PT AT 191. REPORT RECEIVED AT BEDSIDE. PT PRESENTS IN BED. INTUBATED. PS AT 12, FIO2 40 PERCENT. PEEP 8. PT MAINTAINS > 90 PERCENT SATURATION WITH THIS. PRECEDEX FOR SEDATION. SEE FLOWSHEET FOR DETAILS OF RATES. LEVOPHED AT 2MCG'S. MAP > 65 PERCENT PER GOAL. WILL REVIEW CHART AND PLAN OF CARE FOR THIS PT.
[2022-08-16 04:27] LABS: Hematocrit 32.9 % (33.0-51.0); Hemoglobin 10.6 g/dL (11.5-16.0); Mean Corpuscular HGB 35.8 pg (26.0-34.0); Mean Corpuscular HGB Conc 32.2 g/dL (31.5-36.5); Mean Corpuscular Volume 111 fL (80-100); Mean Platelet Volume 10.7 fL (9.1-12.4); NRBC ABSOLUTE 0.52 K/mm3 (0.00-0.02); NRBC Auto 3.2 /100 WBC (0.0-0.2); Platelet Count 219 K/mm3 (150-400); RDW Coefficient Variation 14.2 % (11.7-14.2); RDW Standard Deviation 57.7 fL (35.1-46.3); Red Blood Cell Count 2.96 M/mm3 (3.80-5.20); White Blood Cell Count 16.31 K/mm3 (4.00-11.30)
[2022-08-16 04:42] LABS: International Normalized Ratio 1.7; Prothrombin Time Results 17.2 Sec (9.7-11.5)
[2022-08-16 04:45] LABS: Albumin, Blood 2.8 g/dL (3.4-5.0); Anion Gap 10 mmol/L (6-16); BAND PERCENT MAN 11 % (0-8); BASOPHILS PERCENT MAN 0 % (0-2); Blood Urea Nitrogen 29 mg/dL (8-24); Bun/Creatinine Ratio 24.6 (12.0-20.0); CO2, Blood 28 mmol/L (21-32); Calcium, Blood 8.3 mg/dL (8.5-10.1); Chloride, Blood 99 mmol/L (98-108); Creatinine, Blood 1.18 mg/dL (0.40-1.00); EOSINOPHILS ABSOLUTE MAN 0.48 K/mm3 (0.00-0.68); EOSINOPHILS PERCENT MAN 3 % (0-6); Glomerular Filtration Rate 55 (60-); Glucose, Blood 102 mg/dL (70-99); LYMPHOCYTES ABSOLUTE MAN 2.77 K/mm3 (0.84-5.20); LYMPHOCYTES PERCENT MAN 17 % (21-46); METAMYELOCYTE ABSOLUTE MAN 0.97 K/mm3 (0.00-0.00); METAMYELOCYTE PERCENT MAN 6 % (0-0); MONOCYTES ABSOLUTE MAN 1.46 K/mm3 (0.16-1.47); MONOCYTES PERCENT MAN 9 % (4-13); Phosphorus, Blood 1.1 mg/dL (2.5-4.9); Potassium, Blood 3.5 mmol/L (3.5-5.5); SEG NEUTROPHILS PERCENT MAN 54 % (41-73); Sodium, Blood 137 mmol/L (136-145); TOTAL CELLS COUNTED 100
--- NOTE | 2022-08-16 05:08 | NUR ---
PT CONTINUES ON PRESSURE SUPPORT WITH UNCHANGED SETTINGS. MAINTAINS SATURATIONS > 90 PERCENT. HAVE BEEN ABLE TO BRING LEVOPHED TO 1 MCG. WILL CONTINUE TO EVALUATE IF ABLE TO TITRATE TO OFF. OF NOTE: ABDOMINAL FOLDS AND UNDER BREASTS WITH FISSURES, AND CONTINUED YEAST/ESCORIATION. THESE AREAS CLEANSED GENTLY, AND CALZYME OINTMENT PLACED WITH DESSONEX. DID APPLY ABD PADS TO MAINTAIN AIR CIRCULATION, AND TO WICK MOISTURE. PT'S SHEILA AREA ALSO WITH RASH. DESSONEX APPLIED WELL. FULL CHG BATH DONE. PT HAS BEEN SOMEWHAT ANXIOUS WITH CARE THIS NIGHT. DOES TRY TO GET AHOLD OF HER ETT WHEN HER HAND IS OUT OF RESTRAINT DURING TURNS. PT REDIRECTED. PRECEDEX CONTINUES AT 0.7 MCG'S. DID ADMINISTER 2 MG VERSED PRIOR TO BATH SECONDARY TO ESCALATING ANXIOUSNESS/AGITATION. WILL CONTINUE TO MONITOR PT, AND WILL REPORT OFF TO ONCOMING RN.
--- NOTE | 2022-08-16 07:07 | NUR ---
Received reporrt from Artemio CHRISTY. shira is intubated and resting. She has 7.5 ET and 23 cm at teeth with settings of Spon. PS12/40/7 and sats 92%. She arouses to verbal and painful stimuli but continues to not follow any simple commands. She has RIJ, ressing intact and site WNL's and is infusing NS TKO, Precedex at 0.7 mcg/kg/hr and Levophed remains on standby for systolics low 100's. She has pink cream and anti fungal powder to all folds and ABD pads. She has escamilla draining to gravity emmett colored urine adequate amounts. She has bilateral LE SCD's in place as well as bilateral soft wrist restraints. No plan to extubate as of today.
--- NOTE | 2022-08-16 09:30 | NUR ---
Reposition and boosted patient. All meds given per DEC. No vent or gtt changes. Dr Whitley saw patient and added Midodrien and Albumin. Started previous TF, Glucerna 1.2 30 ml/hr and [address] Smith has also been by no new orders. Patient knods head yes and no but hard to figure whether appropriate to questions and she continues when done asking questions. MATHEW. Did video with Dr Mack and added Potassium Phos and Potassium.
--- NOTE | 2022-08-16 11:42 | NUR ---
Spouse at bedside, Dr Whitley spoke with him. Vent settings Spon. PS 12/40/8 and sats 90%. RIJ infusing NS TKO, Bactrim, Albumin and Precedex at 0.7 mcg/kg/hr. No neuro changes. Hutton patent
--- NOTE | 2022-08-16 13:30 | NUR ---
Took patient to CT and tolerated well. No significant changes with vent or gtt's. Spouse went home for a liitle bit. VSS. No neuro changes from earlier.
--- NOTE | 2022-08-16 15:30 | NUR ---
Patient has been alittle restless and medicated per MAR. at bedside. NS TKO infusing as well as Precedex at 0.7 mcg/kg/hr. VSS. Vent settings Spon. and sats 93%. Pulling at restraints. Still arouses with any stimuli and or care.
--- NOTE | 2022-08-16 19:21 | NUR ---
Patient was switched to AC/PC and sats 95%. Her RIJ is infusing NS TKO, Propofol at 30 mcg/kg/min, Levophed at 5 mcg/min and Precedex is on standby. Patient escamilla intact and patent. She is resting quietly on sedation. gave report to Nlio CHRISTY.
[2022-08-17 03:42] LABS: Hematocrit 31.3 % (33.0-51.0); Hemoglobin 9.9 g/dL (11.5-16.0); Mean Corpuscular HGB 35.1 pg (26.0-34.0); Mean Corpuscular HGB Conc 31.6 g/dL (31.5-36.5); Mean Corpuscular Volume 111 fL (80-100); Mean Platelet Volume 11.2 fL (9.1-12.4); NRBC ABSOLUTE 0.57 K/mm3 (0.00-0.02); NRBC Auto 3.9 /100 WBC (0.0-0.2); Platelet Count 244 K/mm3 (150-400); RDW Coefficient Variation 14.7 % (11.7-14.2); RDW Standard Deviation 58.4 fL (35.1-46.3); Red Blood Cell Count 2.82 M/mm3 (3.80-5.20); White Blood Cell Count 14.75 K/mm3 (4.00-11.30)
[2022-08-17 04:01] LABS: Albumin, Blood 3.1 g/dL (3.4-5.0); Bilirubin, Indirect 0.6 mg/dL (0.1-0.7); Bilirubin, Total 3.6 mg/dL (0.1-1.0); Bun/Creatinine Ratio 18.5 (12.0-20.0); Calcium, Blood 7.5 mg/dL (8.5-10.1); Creatinine, Blood 1.51 mg/dL (0.40-1.00); Phosphorus, Blood 1.3 mg/dL (2.5-4.9); Potassium, Blood 3.4 mmol/L (3.5-5.5); Total Protein, Blood 6.1 g/dL (6.4-8.2)
[2022-08-17 04:22] LABS: BAND PERCENT MAN 17 % (0-8); BASOPHILS PERCENT MAN 0 % (0-2); EOSINOPHILS ABSOLUTE MAN 0.59 K/mm3 (0.00-0.68); EOSINOPHILS PERCENT MAN 4 % (0-6); LYMPHOCYTES % ATYPICAL MANUAL 3 % (0-0); LYMPHOCYTES ABSOLUTE MAN 1.77 K/mm3 (0.84-5.20); LYMPHOCYTES PERCENT MAN 9 % (21-46); METAMYELOCYTE ABSOLUTE MAN 0.14 K/mm3 (0.00-0.00); METAMYELOCYTE PERCENT MAN 1 % (0-0); MONOCYTES ABSOLUTE MAN 1.03 K/mm3 (0.16-1.47); MONOCYTES PERCENT MAN 7 % (4-13); MYELOCYTE ABSOLUTE MAN 0.14 K/mm3 (0.00-0.00); MYELOCYTE PERCENT MAN 1 % (0-0); NEUTROPHILS ABSOLUTE MAN 11.06 K/mm3 (1.96-9.15); SEG NEUTROPHILS PERCENT MAN 58 % (41-73); TOTAL CELLS COUNTED 100
--- NOTE | 2022-08-17 06:27 | NUR ---
NO ACUTE CHANGES OR EVENTS THROUGHOUT SHIFT. MAINTAINED VASOPRESSORS AND SEDATION PRN. TURNED PATIENT Q2H. CHG BATH PROVIDED.
--- NOTE | 2022-08-17 07:00 | NUR ---
Assumed care of pt at 0700 Pt is sedated, restrained and on a ventilator. Levophed to maintain MAP >/= 65. Hutton patent and draining. On tube feed at 30 (goal). No family at bedside. RN to continue to monitor.
--- NOTE | 2022-08-17 19:06 | NUR ---
END OF SHIFT SUMMARY SEDATION STOPPED FOR APPROX 1 HOUR, PT ALERT AND FOLLOWING COMMANDS. STAYS CALM WITH FREQUENT REASSURANCE AND REORIENTATION. SEDATION RESTARTED PER MD. SINUS RYTHM, LEVOPHED TITRATED TO MAINTAIN MAP >/= 65 VENT AC/PC, PEEP 8, FIO2 30%. TOLERATING WELL. TUBE FEED AT 30ML/HR (GOAL) DALY, UO APPOX 50ML/HR SKIN IMPROVING, PICTURES IN CHART, WOUND CARE ORDERS FOLLOWED. PICC LINE PLACED TODAY IN LEFT UPPER ARM. CENTRAL LINE D/C'D PER MD ORDER SO AND SISTER IN LAW IN TO VISIT. UPDATED ON PLAN OF CARE AND PT CONDITION. REPORT GIVEN TO ONCOMING RN.
--- NOTE | 2022-08-17 20:08 | NUR ---
ASSUMED CARE PATIENT IS INTUBATED AND SEDATED ON PROPOFOL AND PRECEDEX, LOACLIZES TO PAIN, NO EYE OPENING AT THIS TIME, MOVES ALL EXTREMITIES. 02 SATS 97% ON VENT AC PC 24/8/40%, RR 26, SCANT AMOUNT OF SECRETIONS FROM ETT, COUGH AND GAG REFLEX PRESENT. LS CLEAR TO DIMINISHED IN THE BASES. HR SR 80s, BP STABLE ON LOW DOSE LEVOPHED. OG WITH VITAL HP AT GOAL RATE OF 40 MLS/HR AND 30 MLS FLUSHES Q4 HOURS. DALY PATENT AND DRAINING DARK YELLOW URINE TO GRAVITY. PATIENT REPOSITIONED AND ORAL CARE COMPLETE.
[2022-08-18 05:00] LABS: Hematocrit 33.8 % (33.0-51.0); Hemoglobin 10.7 g/dL (11.5-16.0); Mean Corpuscular HGB 35.3 pg (26.0-34.0); Mean Corpuscular HGB Conc 31.7 g/dL (31.5-36.5); Mean Corpuscular Volume 112 fL (80-100); Mean Platelet Volume 11.6 fL (9.1-12.4); NRBC ABSOLUTE 0.23 K/mm3 (0.00-0.02); NRBC Auto 1.6 /100 WBC (0.0-0.2); Platelet Count 226 K/mm3 (150-400); RDW Coefficient Variation 14.9 % (11.7-14.2); RDW Standard Deviation 59.5 fL (35.1-46.3); Red Blood Cell Count 3.03 M/mm3 (3.80-5.20); White Blood Cell Count 14.11 K/mm3 (4.00-11.30)
[2022-08-18 05:11] LABS: International Normalized Ratio 1.51; Prothrombin Time Results 15.4 Sec (9.7-11.5)
[2022-08-18 05:17] LABS: Magnesium, Blood 1.2 mg/dL (1.6-2.4)
[2022-08-18 05:18] LABS: Albumin, Blood 2.7 g/dL (3.4-5.0); Anion Gap 13 mmol/L (6-16); Blood Urea Nitrogen 30 mg/dL (8-24); CO2, Blood 23 mmol/L (21-32); Calcium, Blood 7.6 mg/dL (8.5-10.1); Chloride, Blood 94 mmol/L (98-108); Glomerular Filtration Rate 29 (60-); Glucose, Blood 133 mg/dL (70-99); Phosphorus, Blood 2.7 mg/dL (2.5-4.9); Potassium, Blood 3.8 mmol/L (3.5-5.5); Sodium, Blood 130 mmol/L (136-145)
--- NOTE | 2022-08-18 05:47 | NUR ---
SHIFT SUMMARY PATIENT REMAINS INTUBATED AND SEDATED OF PROPOFOL AND PRECEDEX. SOME EYE OPENING AND LOCALIZES TO PAIN, MOVES ALL EXTREMITIES. 02 SATS 95% ON VENT AC PC 24/8/40%, RR 24-30. HR SR 80s, BP STABLE ON MINIMAL LEVOPHED. OG WITH TUBE FEED AT GOAL RATE 40 MLS/HR, VITAL HP. DALY PATENT AND DRAINING TO GRAVITY. MEDICATED FOR TEMP OF 101.3, ICE PACKS AND FAN. CHG/BED BATH DONE, PATIENT REPOSITIONED Q2 HOURS. CALLED DR. OSBORNE WITH AM LAB RESULTS, WAITING FOR RESPONSE.
[2022-08-18 06:15] LABS: BAND PERCENT MAN 8 % (0-8); BASOPHILS ABSOLUTE MAN 0.14 K/mm3 (0.00-0.23); BASOPHILS PERCENT MAN 1 % (0-2); EOSINOPHILS ABSOLUTE MAN 0.42 K/mm3 (0.00-0.68); EOSINOPHILS PERCENT MAN 3 % (0-6); LYMPHOCYTES ABSOLUTE MAN 2.82 K/mm3 (0.84-5.20); LYMPHOCYTES PERCENT MAN 20 % (21-46); METAMYELOCYTE ABSOLUTE MAN 0.42 K/mm3 (0.00-0.00); METAMYELOCYTE PERCENT MAN 3 % (0-0); MONOCYTES ABSOLUTE MAN 0.84 K/mm3 (0.16-1.47); MONOCYTES PERCENT MAN 6 % (4-13); NEUTROPHILS ABSOLUTE MAN 9.45 K/mm3 (1.96-9.15); SEG NEUTROPHILS PERCENT MAN 59 % (41-73); TOTAL CELLS COUNTED 100
--- NOTE | 2022-08-18 06:27 | NUR ---
TALKED WITH OVER [email or web address], WILL ORDER MAG REPLACEMENT. TO HOLD AM WAQAR.
--- NOTE | 2022-08-18 07:32 | NUR ---
0700 Assumed care Toribio is intubated vent 7.5 22 at teeth this am. ac/pc 24.Peep 8. 40%. She is breathing 28 rate. She has insp. and extp. wheezes left upper lobe and clear on right with dim in bilat bases. She is restraind for line management. propfol 1/2 this am to 20 mcg/kg/min for sedation vacation. Precedex is at 0.7mcg/kg/hr and levophed at 5mcg/min. Patient has cream and powder to panis region for skin protection and treatment of red escoriated areas. She has escamilla in place with clear yellow urine out. She is 3+ edema to extremities up to hips bilat on lower extrem bilat. Her cap refill is greater than 3 sec on toes on right foot and at 3 sec on toes of left foot. Will give medication as directed and treat as ordered. Will try another wean today when dr quinteros.
[2022-08-18 12:36] LABS: Source, Urine Foley catheter
[2022-08-18 12:55] LABS: Appearance, Urine Clear (Clear); Blood, Urine 5+ (Neg); Color, Urine Yellow (P-Yellow); Glucose Qualitative, Urine Neg (Neg); Ketones, Urine Neg (Neg); Leukocyte Esterase, Urine 2+ (Neg); Nitrite, Urine Neg (Neg); Protein, Urine 2+ (Neg); Urobilinogen, Urine NORM (Normal)
[2022-08-18 13:23] LABS: Bilirubin, Urine 1+ (Neg)
[2022-08-18 13:26] LABS: White Blood Cells, Urine 0-2 /hpf (0-5)
[2022-08-18 13:27] LABS: Red Blood Cells, Urine 50-100 /hpf (0-2)
[2022-08-18 13:28] LABS: Bacteria Mod /hpf; Squamous Epithelial Cells Few /hpf (Few)
--- NOTE | 2022-08-18 13:28 | NUR ---
1200 NOON ASSESSEMENT PATIENT IS AT A RASS OF -1 WITH PROPOFOL AT 20MCG AND PRECEDEX AT 0.7MCG/KG/HR. SHE HAS NEEDED TO HAVE AN INCREASE IN LEVOPHED THIS MORNING WITH TURNS. SHE IS TACHYPNIC RATE 26-33 AT TIMES. TEMPERATURE NOW BEING TAKEN BY DALY CATHETER WHICH WAS JUST REPLACED. UA FROM BLADDER SENT TO LAB. NO FAMILY HAS CALLED OF YET TO CHECK UP ON PATIENT. PAIN MEDICATION GIVEN FOR GENERALIZED DISCOMFORT. HER TEMPERATURE IS CLIMBING AGAIN AND ICE PACKS ARE REPLACED ALONG WITH A FAN IS BLOWING ON HER. ANTIBIOTICS GIVEN AT NOON. SHE HAS MANY SHEILA AND PANIS SORES THAT HAVE BEEN RECREAMED, POWDERED AND PADDING PLACED ON THEM TO WICK MOISTURE. WILL CONTINUE CARE DIRECTED.
[2022-08-18 13:51] LABS: White Blood Cells Urine 0-2 /hpf (0-5)
[2022-08-18 13:56] LABS: Eosinophils-Raw #,Urine 2
[2022-08-18 15:04] LABS: Albumin, Blood 2.4 g/dL (3.4-5.0); Anion Gap 12 mmol/L (6-16); Blood Urea Nitrogen 29 mg/dL (8-24); Bun/Creatinine Ratio 14.4 (12.0-20.0); CO2, Blood 23 mmol/L (21-32); Calcium, Blood 7.5 mg/dL (8.5-10.1); Chloride, Blood 93 mmol/L (98-108); Creatinine, Blood 2.02 mg/dL (0.40-1.00); Glomerular Filtration Rate 29 (60-); Glucose, Blood 140 mg/dL (70-99); Phosphorus, Blood 2.6 mg/dL (2.5-4.9); Sodium, Blood 128 mmol/L (136-145)
--- NOTE | 2022-08-18 18:04 | NUR ---
ELMO WAS AT A RASS -1 TODAY WHILE INTUBATED AND SLIGHTLY SEDATED. HER PROPOFOL ENDS THE SHIFT AT 25MCG AND HER PRECEDEX WAS NEVER TITRATED STAYED AT 0.7 MCG/KG/HR. PATIENT HAD TWO VISITORS TODAY AND SHE INTERACTED WELL WITH HER . MORE SECRETIONS ARE COMING UP FROM ETT AND A SAMPLE WAS SENT OFF TO BE CULTURED. SHE ALSO HAD HER BC X2 PERIPHERAL DRAWS DONE TODAY SINCE SHE CONTINUES TO HAVE A FEVER DESPITE ICE PACKS, AND TYLENOL. SHE WAS PUT ON A BIG HILROM BED TODAY TO AIDE IN TURNING HER BETTER AND POSITIONING HER BETTER IN BED. SHE CONTINUES TO HAVE SKIN BREAKDOWN IN HER PANIS, LEFT INNER THIGH AND BILAT BUTTOCK REGIONS. CREAM AND POWDER WERE APPLIED TO PANIS AND SHEILA FOLDS AND ABD'S TO KEEP SKIN SEPERATED AND WICK MOISTURE. NEW MEPILEX WAS PLACED ON BUTTOCK CHEEKS. LEVOPHED AT 5MCG MAX 7 MCG TODAY AND GOAL TO KEEP MAP GREATER OR AT 65. WILL CONTINUE CARE DIRECTED AND GIVE REPORT TO ONCOMING SHIFT TO RESUME CARE FOR RETAIL MERCHANDISER.
--- NOTE | 2022-08-18 20:00 | NUR ---
ASSUMED CARE OF PT AT 1915. REPORT RECEIVED AT BEDSIDE. PT PRESENTS IN BED. INTUBATED AC/PC 24, PC 18, FIO2 40%, PEEP 8. PT ON PROPOFOL AT 25MCG'S/KG WITH SAS 3-4. WILL REVIEW CHART AND PLAN OF CARE FOR THIS PT.
--- NOTE | 2022-08-19 03:30 | NUR ---
PT HAS FULL BEDBATH DONE THIS NIGHT WITH CHG CLOTHS. HAVE NOTED: PT HAVING MORE DIFFICULTY WITH VENT TOLERANCE. DID ADMINISTER 25 MCG'S FENTANYL WITH SOME RELIEF. DID INCREASE PROPOFOL TO 40 MCG'S/KG/MIN. PT HAVING MUCH BETTER VENT TOLERANCE. TEMP MAX HAS 102.2 PER URINARY PROBE. TYLENOL GIVEN, AND FAN IN PLACE. LEVOPHED HAS BEEN TITRATED DOWN TO 1 MCG AT THIS TIME. WILL CONTINUE TO MONITOR FOR ABILITY TO TITRATE TO OFF GIVEN PT NOW RECEIVING MIDODRINE FOR BLOOD PRESSURE SUPPORT.
[2022-08-19 04:57] LABS: BASOPHILS ABSOLUTE AUTO 0.07 K/mm3 (0.00-0.23); BASOPHILS PERCENT AUTO 1 % (0-2); EOSINOPHILS PERCENT AUTO 2 % (0-6); Hematocrit 31.7 % (33.0-51.0); Hemoglobin 10.1 g/dL (11.5-16.0); Mean Corpuscular HGB 35.4 pg (26.0-34.0); Mean Corpuscular HGB Conc 31.9 g/dL (31.5-36.5); Mean Corpuscular Volume 111 fL (80-100); Mean Platelet Volume 11.3 fL (9.1-12.4); NRBC ABSOLUTE 0.07 K/mm3 (0.00-0.02); NRBC Auto 0.5 /100 WBC (0.0-0.2); Platelet Count 247 K/mm3 (150-400); RDW Coefficient Variation 14.6 % (11.7-14.2); RDW Standard Deviation 58.4 fL (35.1-46.3); Red Blood Cell Count 2.85 M/mm3 (3.80-5.20); White Blood Cell Count 13.27 K/mm3 (4.00-11.30)
[2022-08-19 04:58] LABS: IMMATURE GRAN ABSOLUTE AUTO 0.61 K/mm3 (0.00-0.10); IMMATURE GRAN PERCENT AUTO 5 % (0-1); LYMPHOCYTES ABSOLUTE AUTO 2.04 K/mm3 (0.84-5.20); LYMPHOCYTES PERCENT AUTO 15 % (21-46); MONOCYTES PERCENT AUTO 9 % (4-13); NEUTROPHILS ABSOLUTE AUTO 9.05 K/mm3 (1.96-9.15); NEUTROPHILS PERCENT AUTO 68 % (41-73)
[2022-08-19 05:11] LABS: Calcium, Blood 8.4 mg/dL (8.5-10.1); Creatinine, Blood 1.5 mg/dL (0.40-1.00); Magnesium, Blood 1.3 mg/dL (1.6-2.4); Phosphorus, Blood 1.9 mg/dL (2.5-4.9)
--- NOTE | 2022-08-19 06:29 | NUR ---
SEDATION VACATION DONE EARLIER IN NIGHT. PT WAS ABLE TO NOD HEAD 'NO' TO QUESTION IF SHE WAS HAVING ANY PAIN. PT DOES BECOME ANXIOUS. PULLS AT RESTRAINTS. HAVE TITRATED LEVOPHED DOWN TO 2 MCG'S. AND PROPOFOL UP TO 40 MCG'S/KG/MIN. MEDICATED PT WITH FENTANYL 25 MCG'S TIMES ONE FOR VENT TOLERANCE. CALLED RESPIRATORY THERAPY TO ROOM SECONDARY TO PT'S TIDAL VOLUMES DECREASING TO 290-310. THIS NOT IN ANY COORELATION TO FENTANYL. RESPIRATORY THERAPY INCREASES PS TO 22 FROM 18. PT MAINTAINS SATURATIONS > 90 PERCENT. WILL CONTINUE TO MONITOR PT, AND WILL REPORT OFF TO HARLEEN CHRISTY.
--- NOTE | 2022-08-19 07:15 | NUR ---
Assumed care of pt at 0700. Report received from Artemio CHRISTY. Pt sedated with propofol 40 mcg/kg/min, precedex 0.7 mcg/kg/hr. RASS -4. Febrile per escamilla temp probe. 7.5 cm ETT at expected placement of 24 cm at teeth. Vent settings ACPC 24, 22/8, 40%. Actual RR 30. Tidal volume 350-400 mL.
--- NOTE | 2022-08-19 12:00 | NUR ---
Precedex off. Propofol 35 mcg/kg/min. RASS -1. Follows commands and nods head yes/no to answer questions. Pt restless. Often grimacing and pulling against restraints. Discussed IV push fentanyl to medicate for pain.
--- NOTE | 2022-08-19 18:19 | NUR ---
SUMMARY Neuro: Pt is on 35 mcg/kg/min propofol, recently restarted. RASS -2. Pt had total sedation interruption for 5 hours today, tolerated well. During sedation interruption, pt able to nod head yes/no to answer questions. Pt able to follow commands. Pt calm and cooperative with care. When pt displayed grimace and restlessness, asked patient if her back was hurting and she nodded head "yes". Fentanyl given. Per pt's spouse, pt has been experiencing back pain for several months and typically uses a heating pad for relief. Pt has been febrile for entire shift. Temp probe located in escamilla catheter. T-max 101.7. Temperature does not appear to respond to tylenol. Cooling blankets reapplied this evening, after pt was back in bed and sedation restarted. Pupils 4 mm, PERRL. Musc: Pt lifted to recliner and remained there for 5 hours today. Pt tolerated this activity well. Total care for all ADLs including Q2H repositioning and oral care. This RN and pt's spouse assisted pt to do ROM. Respiratory: Lungs coarse t/o. Pt routinely receiving breathing tx. ABX changed today by Dr Whitley. 7.5 cm ETT is at expected placement of 24 cm at teeth. Vent settings: set rate 24, PS 22, PEEP 8, FiO2 40%. Actual RR 30-32. TV 425-475 mL. SpO2 90% or greater. ETCO2 33. Moderate amount of thick, an sputum produced by harsh, barky cough. Cardiac: ST this shift, ranging 110-115. Levophed stopped recently. Edema unchanged from initial assessment. Capillary refill less than 3 seconds BUE and BLE. GI: Tolerating tube feeds and flush per orders well. Abd severely distended; no signs of tenderness with palpation. Many days since last BM. MOM and miralax given this shift. Will consider suppository. : One dose lasix given today with 4 doses albumin. 500 mL emmett urine output. Skin: Wound care performed per orders with antifungal powder and pink cream applied to folds with ABD pads for moisture management. Gauze placed between ET tube securement and upper lip to relieve pressure from securement device. Pinpoint sized abrasion with bleeding noted. Psychosocial: Maximized sedation interruption. Pt up lifted to chair. Reorientation and therapeutic communication. Pt's spouse in to visit today- update provided. Therapy dog, Angeli, in to see patient as well.
--- NOTE | 2022-08-19 19:15 | NUR ---
ASSUMED CARE: PT CURRENTLY SEDATED WITH PROPOFOL AT 45, VENTILATED, COOLING BLANKET IN PLACE. ALBUMIN INFUSING. PT IN BIALTERAL SOFT WRIST RESTRAINTS AT THIS TIME. TEMP DALY IN PLACE, DRAINING TO GRAVITY. SINUS TACH UP TO 120.
--- NOTE | 2022-08-19 21:21 | NUR ---
PT MOVED TO ICU-E ROOM 4 AT THIS TIME VIA BED WITH VENT AND IV BY RNs AND RT. PERSONAL BELONGINGS TRANSFFERED WELL.
[2022-08-20 03:31] LABS: BASOPHILS ABSOLUTE AUTO 0.07 K/mm3 (0.00-0.23); BASOPHILS PERCENT AUTO 1 % (0-2); EOSINOPHILS ABSOLUTE AUTO 0.38 K/mm3 (0.00-0.68); EOSINOPHILS PERCENT AUTO 3 % (0-6); Hematocrit 28.1 % (33.0-51.0); Hemoglobin 9.4 g/dL (11.5-16.0); IMMATURE GRAN ABSOLUTE AUTO 0.58 K/mm3 (0.00-0.10); IMMATURE GRAN PERCENT AUTO 4 % (0-1); LYMPHOCYTES ABSOLUTE AUTO 1.84 K/mm3 (0.84-5.20); LYMPHOCYTES PERCENT AUTO 14 % (21-46); MONOCYTES ABSOLUTE AUTO 1.32 K/mm3 (0.16-1.47); MONOCYTES PERCENT AUTO 10 % (4-13); Mean Corpuscular HGB 36.7 pg (26.0-34.0); Mean Corpuscular HGB Conc 33.5 g/dL (31.5-36.5); Mean Corpuscular Volume 110 fL (80-100); Mean Platelet Volume 10.7 fL (9.1-12.4); NEUTROPHILS ABSOLUTE AUTO 9.31 K/mm3 (1.96-9.15); NEUTROPHILS PERCENT AUTO 69 % (41-73); NRBC ABSOLUTE 0.07 K/mm3 (0.00-0.02); NRBC Auto 0.5 /100 WBC (0.0-0.2); Platelet Count 234 K/mm3 (150-400); RDW Coefficient Variation 15.1 % (11.7-14.2); RDW Standard Deviation 60.1 fL (35.1-46.3); Red Blood Cell Count 2.56 M/mm3 (3.80-5.20)
[2022-08-20 03:49] LABS: Albumin, Blood 3.4 g/dL (3.4-5.0); Albumin/Globulin Ratio 1.2 (0.8-1.8); Bilirubin, Direct 2.8 mg/dL (0.0-0.3); Bilirubin, Indirect 0.5 mg/dL (0.1-0.7); Bilirubin, Total 3.3 mg/dL (0.1-1.0); Bun/Creatinine Ratio 18.9 (12.0-20.0); Calcium, Blood 8.4 mg/dL (8.5-10.1); Creatinine, Blood 1.32 mg/dL (0.40-1.00); Globulin, Blood 2.8 g/dL (2.2-4.0); Phosphorus, Blood 2.3 mg/dL (2.5-4.9); Potassium, Blood 3.9 mmol/L (3.5-5.5); Total Protein, Blood 6.2 g/dL (6.4-8.2)
--- NOTE | 2022-08-20 07:15 | NUR ---
Assumed care of pt at 0700. Report received from Maria Fernanda CHRISTY. Pt sedated with 55 mcg/kg/min for ventilator tolerance. Pt alert. Occasionally follows commands and nods head yes/no to answer questions. Vent settings, rate 24, PI 22, PEEP 8, FiO2 40%. Actual RR 26-30. Tidal volumes 350-450 mL.
--- NOTE | 2022-08-20 14:50 | NUR ---
Noted OG tube has longer length of tubing exposed that previously noted. Line removed and reinserted. Adjusted PICC line per direction of PICC nurse, Lianet, and most recent chest xray. New xray obtained. Esophageal temp probe placed as escamilla temp probe quit working. Dr Whitley in to see patient.
--- NOTE | 2022-08-20 18:13 | NUR ---
SUMMARY Neuro: Propofol restarted at 20 mcg/kg/min. Pt had a break from propofol for about 5 hours today. Tolerated break well but pt was not as interactive as she was yesterday during sedation interrruption. Precedex remains off. IV fentanyl used for pain relief. Temp probe in escamilla quit working. Inserted esophageal probe. Pupils 4 mm. PERRL. Musc: Sat up in recliner for about 5 hours today. Tolerated well. Required total care for all ADLs including Q2H reposition. Resp: ETT at expected placement of 24 cm at teeth. Vent settings ACPC rate 24. PI 22. PEEP 8. FiO2 40%. Actual RR 26-30, tidal volumes 400-475 mL. SpO2 90% or greater. Cardiac: ST per monitor, rate 115-120. Levophed off for entire shift. Midodrine held as pt had several SBP readings greater than 130. Edema improving. GI: 3 large liquid BMs today. No additional changes to abd assessment. : Excellent output of emmett urine. Skin: Unchanged from initial assessment. Prescribed wound care performed. Psychosocial: Update given to pt, spouse, and sister in law, by Dr Whitley.
[2022-08-21 03:42] LABS: Hematocrit 28.3 % (33.0-51.0); Hemoglobin 9.2 g/dL (11.5-16.0); Mean Corpuscular HGB 35.9 pg (26.0-34.0); Mean Corpuscular HGB Conc 32.5 g/dL (31.5-36.5); Mean Corpuscular Volume 111 fL (80-100); Mean Platelet Volume 10.9 fL (9.1-12.4); NRBC ABSOLUTE 0.08 K/mm3 (0.00-0.02); NRBC Auto 0.6 /100 WBC (0.0-0.2); Platelet Count 247 K/mm3 (150-400); RDW Coefficient Variation 15.5 % (11.7-14.2); RDW Standard Deviation 60.7 fL (35.1-46.3); Red Blood Cell Count 2.56 M/mm3 (3.80-5.20)
[2022-08-21 03:57] LABS: Albumin, Blood 2.9 g/dL (3.4-5.0); Anion Gap 9 mmol/L (6-16); Blood Urea Nitrogen 25 mg/dL (8-24); Bun/Creatinine Ratio 23.8 (12.0-20.0); CO2, Blood 29 mmol/L (21-32); Calcium, Blood 8.9 mg/dL (8.5-10.1); Chloride, Blood 96 mmol/L (98-108); Creatinine, Blood 1.05 mg/dL (0.40-1.00); Glomerular Filtration Rate 64 (60-); Glucose, Blood 116 mg/dL (70-99); Phosphorus, Blood 2.4 mg/dL (2.5-4.9); Potassium, Blood 3.6 mmol/L (3.5-5.5); Sodium, Blood 134 mmol/L (136-145)
[2022-08-21 04:00] LABS: BAND PERCENT MAN 5 % (0-8); BASOPHILS PERCENT MAN 0 % (0-2); EOSINOPHILS ABSOLUTE MAN 0.38 K/mm3 (0.00-0.68); EOSINOPHILS PERCENT MAN 3 % (0-6); LYMPHOCYTES ABSOLUTE MAN 1.14 K/mm3 (0.84-5.20); LYMPHOCYTES PERCENT MAN 9 % (21-46); MONOCYTES PERCENT MAN 15 % (4-13); MYELOCYTE ABSOLUTE MAN 0.12 K/mm3 (0.00-0.00); MYELOCYTE PERCENT MAN 1 % (0-0); NEUTROPHILS ABSOLUTE MAN 9.14 K/mm3 (1.96-9.15); SEG NEUTROPHILS PERCENT MAN 67 % (41-73); TOTAL CELLS COUNTED 100
--- NOTE | 2022-08-21 06:10 | NUR ---
SHIFT SUMMARY: PT IN RESTRAINTS, CONTINUES TO ATTEMPT TO PULL OUT TUBE DESPITE FREQUENT REORIENTATION AND EXPLANATION OF CARE. RT INCREASED FiO2 TO 45% TO MAINTAIN SATS. PT HAD 2 LIQUID BOWEL MOVEMENTS OVERNIGHT. VERY AGITATED THIS MORNING, VERSED GIVEN, PT SEEMED TO CALM DOWN AND REST AFTERWARDS. PT GOT MORE SLEEP TONIGHT THAN PREVIOUS NIGHT. COLACE HELD D/T BMs AND MIDODRINE HELD D/T HEMODYNAMICS. K PHOS INFUSING, AND LASIX CHANGED FROM [address] CHOWDHURY. PROPOFOL AT 55. TUBE FEEDS AT 25. TEMPERATURE BETWEEN 99 AND LOW 100s TONIGHT WITHOUT COOLING BLANKET.
--- NOTE | 2022-08-21 08:00 | NUR ---
[place] of Care: Care assumed at 0700hr. Patient intubated and sedated with propofol gtt at 45mcg/kg/min. Patient mostly sleeping, but occasionally rouses spontaneously and also to verbal stimuli. Pulls at restraints while awake. Follows commands to squeeze hands but not following any other request. Prn fentanyl given per facial grimacing and restlessness, good effect noted. Tolerating vent without difficulty, PC mode 24/8/45%, SpO2-93-94%. Hutton cath patent and intact. PICC line to HECTOR patent and intact. TF at goal, no s/s of GI intolerance. Will continue to monitor.
--- NOTE | 2022-08-21 09:30 | NUR ---
ASSUMED CARE REPORT RECIEVED FROM WESTLEY SIMPSON. PT IS RESTING QUIETLY ON VENT, RR 24, PC 22, PEEP 8, FIO2 45%. VITAL SIGNS STABLE. PROPOFOL INFUSING AT 55 MCG/KG/MIN. PLANS FOR SBT THIS AM. WILL CONTINUE TO MONITOR.
--- NOTE | 2022-08-21 11:45 | NUR ---
SBT PT WITH PROPOFOL ON STANDBY. PT OPENS EYES TO VOICE AND FOLLOWS SIMPLE COMMANDS. PT SWITCHED TO PRESSURE SUPPORT 7/8, FIO2 45%. PT DOING WELL WITH PS. PLAN TO KEEP PT ON PS THROUGHOUT THE SHIFT TOLERATED. WILL CONTINUE TO MONITOR.
--- NOTE | 2022-08-21 16:00 | NUR ---
Case conference with Dr Whitley re: progress and hopes to wean of ventilator before procedure for trach/peg becomes necessary, current status and plan of care reviewed. Pal Care to cont to follow.
--- NOTE | 2022-08-21 19:15 | NUR ---
ASSUMED CARE OF PT AT 1500 NEURO: NODS APPROPRIATELY, FOLLOWS COMMANDS, NO SEDATION RUNNING CARDIAC: SINUS TACHYCARDIA, SBP 130'S, MAP>65 RESP: REMIANS INTUBATED, PRESSURE SUPPORT 7/8 45%, O2SATS >90% GI: TUBE FEEDS AT 25ML/HR (GOAL) WITH 30ML H20 FLUSH EVERY 4 HOURS : DALY, UO 1200/SHIFT, [place] CLEAR SKIN: EXCORIATION IN SHEILA AREA AND BUTTOCK. DRESSINGS APPLIED TO BUTTOCKS/COCCYX, ABD PADS IN PLACE UNDER PANIS AND GROIN FOLDS. IV: PICC LINE LEFT UPPER ARM, NS AT TKO WITH IVPB'S. PSYCH: SUPPORTIVE SIG OTHER, AT BEDSIDE DAILY. UPDATED WITH POC, ALL QUESTIONS ANSWERED. REPORTED TO ONCOMING RN AT BEDSIDE.
[2022-08-22 04:16] LABS: Hematocrit 31.6 % (33.0-51.0); Mean Corpuscular HGB 35.3 pg (26.0-34.0); Mean Corpuscular HGB Conc 31.6 g/dL (31.5-36.5); Mean Corpuscular Volume 112 fL (80-100); Mean Platelet Volume 10.5 fL (9.1-12.4); NRBC ABSOLUTE 0.32 K/mm3 (0.00-0.02); NRBC Auto 2.7 /100 WBC (0.0-0.2); Platelet Count 269 K/mm3 (150-400); RDW Coefficient Variation 15.1 % (11.7-14.2); RDW Standard Deviation 61.7 fL (35.1-46.3); Red Blood Cell Count 2.83 M/mm3 (3.80-5.20); White Blood Cell Count 11.94 K/mm3 (4.00-11.30)
[2022-08-22 04:51] LABS: Albumin, Blood 2.8 g/dL (3.4-5.0); Anion Gap 11 mmol/L (6-16); Blood Urea Nitrogen 24 mg/dL (8-24); Bun/Creatinine Ratio 33.7 (12.0-20.0); CO2, Blood 28 mmol/L (21-32); Calcium, Blood 9.5 mg/dL (8.5-10.1); Chloride, Blood 99 mmol/L (98-108); Creatinine, Blood 0.71 mg/dL (0.40-1.00); Glomerular Filtration Rate 102 (60-); Glucose, Blood 125 mg/dL (70-99); Phosphorus, Blood 1.7 mg/dL (2.5-4.9); Potassium, Blood 3.7 mmol/L (3.5-5.5); Sodium, Blood 138 mmol/L (136-145)
[2022-08-22 05:36] LABS: BAND PERCENT MAN 11 % (0-8); BASOPHILS PERCENT MAN 0 % (0-2); EOSINOPHILS ABSOLUTE MAN 0.35 K/mm3 (0.00-0.68); EOSINOPHILS PERCENT MAN 3 % (0-6); LYMPHOCYTES ABSOLUTE MAN 2.02 K/mm3 (0.84-5.20); LYMPHOCYTES PERCENT MAN 17 % (21-46); METAMYELOCYTE ABSOLUTE MAN 0.11 K/mm3 (0.00-0.00); METAMYELOCYTE PERCENT MAN 1 % (0-0); MONOCYTES ABSOLUTE MAN 1.07 K/mm3 (0.16-1.47); MONOCYTES PERCENT MAN 9 % (4-13); MYELOCYTE ABSOLUTE MAN 0.11 K/mm3 (0.00-0.00); MYELOCYTE PERCENT MAN 1 % (0-0); NEUTROPHILS ABSOLUTE MAN 8.23 K/mm3 (1.96-9.15); SEG NEUTROPHILS PERCENT MAN 58 % (41-73); TOTAL CELLS COUNTED 100
--- NOTE | 2022-08-22 05:41 | NUR ---
SHIFT SUMMARY: PT. REMAINED STABLE OVERNIGHT, SEDATION WAS RESTARTED FOR PT. COMFORT AND VENTILATOR COMPLIANCE. PT. IS NOW ON 25 OF PROP BUT STILL ABLE TO AROUSE EASILY. PT. IS STILL NOT CONSISTENTLY FOLLOWING COMMANDS. PT. WAS CHANGED TO AC/VC OVERNIGHT FOR INCREASED WORK OF BREATHING AND IS NOW ON SETTINGS OF 16/450/40%/10. STOMACH IS STILL FIRM TO PALPATION AND PT. HAD ONE SMALL BM OVERNIGHT. DALY CATHETER IS STILL IN PLACE AND DRAINING. PT. HAS 1100 UOP OVERNIGHT. PT. HAS BEEN FEBRILE ALL NIGHT WITH A TMAX OF 101.5. TYLENOL, COLD BATHS, AND ICE PACKS DO NOT SEEM TO HELP. PT. IS RESTING IN BED COMFORTABLY AT THIS TIME.
--- NOTE | 2022-08-22 10:17 | NUR ---
AM NOTE... 0715: ASSUMED CARE OF PT AT 0700, THE PT IS INTUBATED AND SEDATED WITH A RASS OF +1 PROPOFOL IS RUNNING AT 25MG. THE PT'S VENT SETTINGS ARE AC: 16/450/10/40% WITH O2 SATS >90% L/S COARSE W/ CRACKLES NOTED T/O DIM IN THE BASES. ET TUBE IS 7.5 AND 24 AT THE TEETH. THE PT IS IN SINUS TACH IN THE 120'S-130'S BP STABLE AT THIS TIME. OG TUBE IS RUNNING TUBE FEEDS PER ORDERS AT 25MLS/HR NO RESIDUALS NOTED DURING THIS ASSESSMENT. BT PRESENT AND VERY HYPOACTIVE. ABD IS VERY FIRM AND EDEMATOUS. DALY IS IN PLACE DRAINING DARK YELLOW URINE TO GRAVITY. THE PT'S TEMP AT THE START OF THIS SHIFT WAS 102.1 AND CLIMBING. 0900: THE PT'S TEMP CONTINUES TO INCREASE TO >103. THE PT WAS MEDICATED PER EMAR AND ICE PACKS WERE PLACED. WHILE THIS RN WAS GIVING THE PT'S IV ANTIBIOTICS CEFAZOLIN VIA IV SLOW PUSH THE PT STARTED TO HAVE ECTOPY WITH AN INCREASED HEART RATE INTO THE 160'S. THIS RN STOPPED THE PUSH AND ASSESSED THE PT AND NO OTHER CHANGE WAS NOTED. THIS RN CALLED THE SISAL PICKER [place] TO THE ROOM. ANOTHER ATTEMPT TO SLOWLY PUSH THE IV CEFAZOLIN WAS DONE AND SOON THE PUSH STARTED THE PT HAD ANOTHER EPISODE OF ECTOPY WITH INCREASED HR TO >160. THIS MEDICATION WAS STOPPED AND THE PICC LINE WAS FLUSHED, THE PICC LINE WAS BEING FLUSHED THE PT HAD ANOTHER EPISODE OF ECTOPY AND INCREASED HR. THIS WAS REPORTED TO DR. LANGE IN THE PHARMACY. THE RATE OF THE IV ANTIBIOTICS WAS INCREASED AN GIVEN VIA THE IV PUMP CONCURENT WITH 30MLS/HR NS. NO OTHER ECTOPY NOTED AT THIS TIME. WILL CONTINUE TO MONITOR.
--- NOTE | 2022-08-22 13:54 | NUR ---
PT UPDATE.... LIFT WAS USED TO GET THE PT OUT OF BED AND INTO A RECLINER CHAIR. THE PT TOLERATED THE TRANSFER WELL. THE PT'S AT THE BEDSIDE PRIOR TO THE PT GETTING UP INTO THE CHAIR, HE WAS UPDATED BY THE CHARGE NURSE AND THIS RN. AT APROX 1230 THE PT WAS SWITCHED TO SPONTAINIOUS 7/10 AND 40% FIO2 WITH O2 SATS >90%. WILL CONTINUE TO MONITOR.
--- NOTE | 2022-08-22 18:04 | NUR ---
SHIFT SUMMARY.... NO ACUTE NEGATIVE CHANGES ASSESSED SINCE PREVIOUS NOTES. THE PT WAS UP IN THE CHAIR FOR APROX 6HRS ON PS OF 7/10 AND 40% WITH O2 SATS >90%. THE PT'S TEMP CONTINUES TO BE ELEVATED AT >101 MEDICATED PER EMAR AND ICE PACKS USED. THE PT'S HAS BEEN AT THE BEDSIDE MOST OF THIS SHIFT. PT HAD A SMALL BM. WILL CONTINUE TO MONITOR UNTIL REPORT IS GIVEN TO ONCOMING RN.
--- NOTE | 2022-08-22 19:33 | NUR ---
ASSUMED CARE. REPORT RECEIVED AT BEDSIDE. PT ALERT OPENING EYES, TRACKS SLIGHTLY. TEARFUL BUT WILL NOD TO YES AND NO ANSWERS. FOLLOWS COMMANDS. DOES STATES SHE HURTS, WILL MEDICATE. LS DIM T/O. ON SPONTANOUS VENT SETTINGS AT 10 PEEP AND FIO2 40%. SATS MID 90'S. NO SEDATION AND TOLERATING WELL. IV CURRENTLY SL. SINUS ON MONITOR TACHY IN THE 110'S. TEMP 100.1. REDNESS IN GROIN AND UNDER PANUS. TF INFUSING AT 25ML. WILL MONITOR.
--- NOTE | 2022-08-23 05:43 | NUR ---
SHIFT SUMMARY: ALERT ORIENTED TO SELF, FOLLOWS SIMPLE COMMANDS, NODS HEAD YES AND NO SOMETIMES. NO SEDATION. WEAK BILATERALLY. REMAINS ON SPONTANOUS VENT SETTINGS ALL NIGHT, SETTINGS PEEP 10, FIO2 40%. SATS MAINTAINED >90% THIS SHIFT. SUCTION WHITE THICK SECRETIONS VIA ETT TUBE. HR HAS REMAINED 110-120'S WITH NORMAL BP. MD AWARE OF HR. SINUS. TMAX-101.9 THIS AM, TYLENOL GIVEN AND ICE APPLIED. ACTIVE BT, BM LOOSE BROWN. DALY 850CC OUTPUT OF [place] COLORED URINE. SKIN BREAKDOWN UNDER BREAST, PANUS, BUTTOCKS, AND GROIN ARE ALL IMPROVING, CLOTH HAS BEEN PLACED BETWEEN AND CHANGED TWICE TONIGHT TO KEEP DRY. NO OTHER CHANGES OCCURRED THIS SHIFT. WILL REPORT OFF.
--- NOTE | 2022-08-23 14:37 | NUR ---
Case conference with Dr Wang re: admit on comfort care and orders placed. Pt currently in ER#[id number] and appears to be actively dying. is present and understands that pt is in process of dying. is deaf per . Pt was just admitted with severe sepsis/shock and resp failure. He is a DNR and comfort measures desired at this time. Comfort Care order set placed per . is recommending and has ordered Roxanol for increased resp effort/distress. Pt awaiting transfer to inpt room. Will check on him first thing in the am.
--- NOTE | 2022-08-23 16:34 | NUR ---
SHIFT SUMMARY PT DOING WELL THIS SHIFT. PT REMAINS INTUBATED AND NOT SEDATED. VENT SETTINGS PRESSURE SUPPORT 7/8, FIO2 40%. PT CONTINUES TO TRACK WHEN IN THE ROOM. PT OCCASIONALLY SQUEEZES HANDS UPON COMMAND. PT MOVES ALL EXTREMITIES. VITAL SIGNS STABLE. OGT REMAINS IN PLACE WITH TF INFUSING AT GOAL RATE. PICC TO HECTOR SALINE LOCKED. DALY REMAINS IN PLACE WITH DARK YELLOW OUTPUT NOTED. PT WOUNDS REMAIN UNCHANGED. PT UP TO RECLINER CHAIR WITH LIFT THIS AFTERNOON. PT SPOUSE AT BEDSIDE THIS AFTERNOON. SBW RESTRAINTS REMAIN IN PLACE. WILL CONTINUE TO MONITOR AND REPORT OFF TO ONCOMING RN.
--- NOTE | 2022-08-23 19:36 | NUR ---
RECEIVED REPORT FROM WESTLEY DAMON. PT UP IN CHAIR WITH SOFT UPPER RESTRAINTS, INTUBATED AND ON PRESSURE SUPPORT AND TOLERATING WELL. PT ABLE TO TRACK PEOPLE IN ROOM, NO SEDATION. TF INFUSING AT GOAL TO OGT. TEMP CURRENTLY IS 101.1 WHICH IS T-MAX FOR THE DAY. HOLD STOOL SOFTENERS PT IS HAVING LOOSE STOOLS PLAN FOR EXTUBATION TOMORROW IF NO EVENTS OCCUR OVERNIGHT.
[2022-08-24 05:01] LABS: BASOPHILS ABSOLUTE AUTO 0.18 K/mm3 (0.00-0.23); BASOPHILS PERCENT AUTO 2 % (0-2); EOSINOPHILS ABSOLUTE AUTO 0.57 K/mm3 (0.00-0.68); EOSINOPHILS PERCENT AUTO 5 % (0-6); Hematocrit 34.8 % (33.0-51.0); Hemoglobin 10.5 g/dL (11.5-16.0); IMMATURE GRAN ABSOLUTE AUTO 0.53 K/mm3 (0.00-0.10); IMMATURE GRAN PERCENT AUTO 5 % (0-1); LYMPHOCYTES ABSOLUTE AUTO 2.69 K/mm3 (0.84-5.20); LYMPHOCYTES PERCENT AUTO 24 % (21-46); MONOCYTES ABSOLUTE AUTO 1.44 K/mm3 (0.16-1.47); MONOCYTES PERCENT AUTO 13 % (4-13); Mean Corpuscular HGB 35.2 pg (26.0-34.0); Mean Corpuscular HGB Conc 30.2 g/dL (31.5-36.5); Mean Platelet Volume 10.4 fL (9.1-12.4); NEUTROPHILS PERCENT AUTO 51 % (41-73); NRBC ABSOLUTE 0.71 K/mm3 (0.00-0.02); NRBC Auto 6.4 /100 WBC (0.0-0.2); Platelet Count 295 K/mm3 (150-400); RDW Standard Deviation 67.1 fL (35.1-46.3); Red Blood Cell Count 2.98 M/mm3 (3.80-5.20); White Blood Cell Count 11.01 K/mm3 (4.00-11.30)
[2022-08-24 05:05] LABS: Mean Corpuscular Volume 117 fL (80-100)
[2022-08-24 05:38] LABS: Albumin, Blood 2.6 g/dL (3.4-5.0); Albumin/Globulin Ratio 0.7 (0.8-1.8); Bilirubin, Direct 1.8 mg/dL (0.0-0.3); Bilirubin, Indirect 0.5 mg/dL (0.1-0.7); Bilirubin, Total 2.3 mg/dL (0.1-1.0); Bun/Creatinine Ratio 45.5 (12.0-20.0); Calcium, Blood 9.8 mg/dL (8.5-10.1); Creatinine, Blood 0.62 mg/dL (0.40-1.00); Globulin, Blood 3.7 g/dL (2.2-4.0); Phosphorus, Blood 2.9 mg/dL (2.5-4.9); Potassium, Blood 3.3 mmol/L (3.5-5.5); Total Protein, Blood 6.3 g/dL (6.4-8.2)
--- NOTE | 2022-08-24 06:37 | NUR ---
SHIFT SUMMARY PT CONTINUED TO DO WELL OVERNIGHT, NO EVENTS NOTED. SHE IS ALERT AND FOLLOWS SOME COMMANDS AND NODS/SHAKES HEAD TO YES OR NO QUESTIONS. PT REMAINED INTUBATED ON PRESSURE SUPPORT 7/8 FIO2 AT 45% WITH O2 SATS IN THE LOW 90S. PT IS STILL OFF OF ALL SEDATION. VS STABLE EXCEPT FOR HER TEMPERATURE. T-MAX WAS 101.5 AND LOWEST TEMP WAS 100. PRN TYLENOL GIVEN PER MAR AND ICE PACKS PLACED ON PT. OGT INFUSING CONTINUOUS TF AT GOAL RATE. PICC TO LUA. DALY IN PLACE DRAINING DARK YELLOW URINE. WOUNDS IN BETWEEN SKIN FOLDS, DRIED AND APPLIED POWDER PER MAR. SBW RESTRAINTS REMAIN IN PLACE. WILL PASS ON TO DAY RN THAT PT IS SUPPOSED TO BE EXTUBATED THIS MORNING.
--- NOTE | 2022-08-24 08:22 | NUR ---
ASSUMED CARE OF PT THIS AM. PT. OPENS EYES BRIEFLY TO VERBAL STIMULI HOWEVER NOT FOLLOWING COMMANDS FOR THIS RN. END TIDAL CO2 NOTED TO BE IN THE 60S VIA NUMERICAL CONTROL DRILL PRESS OPERATOR. PT. REMAINS ON SPONT. PS 5, PEEP 8, FIO2 45%. SPO2 92% TVS 270S-300S. RYTHM REMAINS SINUS TACH, BP WNL. PT. CONTINUES WITH LOW GRADE TEMP OF 99.7. FAN AT BEDSIDE. COOL CLOTH TO FOREHEAD. PT. CONTINUES WITH PILLOW CASES TO SKIN FOLDS TO REDUCE MOISTURE. POWDER APPLIED. PT. HAS DALY DRAINING TO GRAVITY. RT AT BEDSIDE TO DRAW ABG. BILAT WRIST RESTRAINTS IN PLACE TO PREVENT SELF EXTUBATION.
[2022-08-24 08:28] LABS: PCO2 Arterial 67 mmHg (35-45); PO2 Arterial 74.6 mmHg (80-100)
--- NOTE | 2022-08-24 08:41 | NUR ---
VENT SETTINGS ADJUSTED S/P ABG DRAW PS 8/8, 45% FIO2, TV 300S AND ET CO2 DECREASING TO MID 50S ON MEDICAL TECHNOLOGIST BLOOD BANK.
--- NOTE | 2022-08-24 10:00 | NUR ---
PT ARRIVED TO UNIT APPROXIMATELY @ 0920. INTUBATED, NO SEDATION INFUSING. PT UNRESPONSIVE TO VERBAL AND PAINFUL STIMULI PUPILS NONREACTIVE FIXED AT 2MM WITH SLIGHT UPWARD GAZE. NO COUGH OR GAG AT THIS TIME. PT INITIAL VENT SETTINGS: AC 16 450 PEEP 5 60%, INCREASED TO 70% 0942 R/T SPO2 <90%. LUNGS SOUNDS CTA ALL LUNG GUZMAN, DIMMISHED IN LOWER LOBES. OG TUBE IN PLACE, PLACED TO LOW INTERMITENT SUCTION, BRWON NOTED. TEMP DALY IN PLACE, DRAINING TO GRAVITY. PT HYPOTHERMIC UPON ARRIVAL, ALEXANDER HUGGER IN PLACE. R FEM CVA IN PLACE c K+, LEVO, INSULIN INFUSING, SEE FLOWSHEET FOR TITRATION. LEVO REQUIRING INCREASED TITRATION UPON ARRIVAL. SKIN OVERALL INTACT, DEFIB PADS AND CRASH CART IN PLACE RISK OF CARDIAC ARREST. FAMILY AT BEDSIDE, AWAITING DR. SADE FOX.
--- NOTE | 2022-08-24 13:00 | NUR ---
UPDATE PT UP TO BEDSIDE CHAIR VIA LIFT. LINENS CHANGED AND SHEILA CARE COMPLETED DUE. PT. MED FOR PAIN WITH FENTANYL PRIOR TO MOVING TO CHAIR. PER DR. STUART NO EXTUBATION TODAY AND WILL REASSESS TOMORROW. PT CONTINUES ON SPONT. AND NO SEDATION. RESTLESS AT TIMES BUT TOLERATING WELL. MED WITH TYLENOL FOR LOW GRADE TEMP, AND FAN REMAINS AT BEDSIDE.
--- NOTE | 2022-08-24 17:35 | NUR ---
SHIFT SUMMARY PT. REMAINS INTUBATED. MORE ALERT SHIFT WENT ON, NOW SQUEEZING HANDS AND NODDING HEAD TO QUESTIONS. PT. HR REMAINS ELEVATED AND LOW GRADE TEMP DESPITE TYLENOL ADMIN, ICE PACKS AND FAN. BLOOD CULTURES REDRAWN TODAY. PT UP TO BEDSIDE CHAIR VIA LIFT THIS AFTERNOON. TOLERATING WELL, SHIFTING HIPS IN CHAIR FOR PRESSURE RELIEF. PT. PLACED BACK TO AC MODE BY DR. STUART DUE TO LOW TV THIS PM. CURRENT VENT SETTINGS AC 16, TV 420, PEEP 12, FIO2 45%. FAMILY AT BEDSIDE TODAY. NO ACUTE CHANGES. REPORT TO ONCOMING RN .
--- NOTE | 2022-08-24 19:31 | NUR ---
RECEIVED REPORT FROM WESTLEY MARROQUIN. PT STILL INTUBATED, NOT SEDATED AND UP IN THE CHAIR. ABLE TO ANSWER YES OR NO QUESTIONS FOR ME AND FOLLOW SIMPLE COMMANDS. TEMP CURRETNLY 101.3, SHE'S TACHYCARDIC IN 110-120S, BP STABLE. NO C/O PAIN CURRENTLY, JUST REQUESTING TO GO BACK TO BED.
--- NOTE | 2022-08-24 21:47 | NUR ---
PT RESTLESS IN BED, MOVING ALL EXTREMITIES AND SHAKING HEAD. PRN FENTANYL GIVEN PER DEC. ICE PACKS, COOL WASH CLOTH AND FAN ALL PLACED ON PT. TEMP OF 101.8 CURRENTLY. WILL CONTINUE TO MONITOR.
--- NOTE | 2022-08-24 22:55 | NUR ---
UPDATE: PT AGITATED AND RESTLESS, APPEARS ANXIOUS. TRYING TO TALK OVER ETT. CONTINUOUSLY LOOKS AROUND THE ROOM IF SHE IS SEEING SOMETHING. PRN FENTANYL GIVEN EARLIER PER EMAR WITH NO EFFECT. PT FIGHTING VENILATOR. DISCUSSED WITH GRASSLAND CONSERVATIONIST AND STARTED PROPOFOL.
--- NOTE | 2022-08-25 04:50 | NUR ---
SHIFT SUMMARY PT AGITATED AND ANXIOUS OVERNIGHT SHAKING HER HEAD BACK AND FORTH TO THE POINT WHERE HE OGT AND TEMP PROBE CAME OUT. NEW ONES PLACED AND PT WAS PUT ON A PROPOFOL DRIP. SHE IS STILL INTERMITTENTLY FOLLOWING COMMANDS, BUT TENDS TO LOOK AROUND THE ROOM, ALMOST PARANOID IF SHE'S SEEING THINGS. PT STILL INTUBATED ON A/C MODE TV 420, PEEP 12, FIO2 45%, RATE 16 VS STABLE EXCEPT FOR HER TEMPERATURE. T-MAX WAS 101.8; PRN TYLENOL GIVEN PER EMAR AND ICE PACKS PLACED INTERMITTENTLY. OGT INFUSING CONTINOUS TF AT GOAL RATE, RECTAL TUBE PLACED AT BEGINNING OF SHIFT D/T LIQUID STOOLS WITH 1000ML OUTPUT OVERNIGHT. DALY STILL IN PLACE DRAINING YELLOW URINE. SBW RESTRAINTS REMAIN IN PLACE.
[2022-08-25 04:59] LABS: Albumin, Blood 2.6 g/dL (3.4-5.0); Anion Gap 5 mmol/L (6-16); Blood Urea Nitrogen 29 mg/dL (8-24); Bun/Creatinine Ratio 39.9 (12.0-20.0); CO2, Blood 33 mmol/L (21-32); Chloride, Blood 108 mmol/L (98-108); Creatinine, Blood 0.73 mg/dL (0.40-1.00); Glomerular Filtration Rate 98 (60-); Glucose, Blood 109 mg/dL (70-99); Phosphorus, Blood 2.4 mg/dL (2.5-4.9); Potassium, Blood 3.2 mmol/L (3.5-5.5); Sodium, Blood 146 mmol/L (136-145)
--- NOTE | 2022-08-25 06:30 | NUR ---
CHANGED ALL SHEETS AND PLACED COOLING BLANKETS UNDERNEATH PT D/T TEMP OF 102.2. PRN TYLENOL GIVEN WELL. WILL PASS ON TO DAY SHIFT ABOUT WAITING FOR POTASSIUM DRIP TO GIVE FOR K OF 3.2 THIS AM.
[2022-08-25 06:33] LABS: Hematocrit 32.2 % (33.0-51.0); Mean Corpuscular HGB 36.4 pg (26.0-34.0); Mean Corpuscular HGB Conc 31.1 g/dL (31.5-36.5); Mean Corpuscular Volume 117 fL (80-100); Mean Platelet Volume 10.4 fL (9.1-12.4); NRBC ABSOLUTE 0.66 K/mm3 (0.00-0.02); NRBC Auto 7.2 /100 WBC (0.0-0.2); Platelet Count 314 K/mm3 (150-400); RDW Coefficient Variation 16.8 % (11.7-14.2); RDW Standard Deviation 69.2 fL (35.1-46.3); Red Blood Cell Count 2.75 M/mm3 (3.80-5.20); White Blood Cell Count 9.12 K/mm3 (4.00-11.30)
[2022-08-25 07:40] LABS: BAND PERCENT MAN 3 % (0-8); BASOPHILS ABSOLUTE MAN 0.18 K/mm3 (0.00-0.23); BASOPHILS PERCENT MAN 2 % (0-2); EOSINOPHILS ABSOLUTE MAN 0.36 K/mm3 (0.00-0.68); EOSINOPHILS PERCENT MAN 4 % (0-6); LYMPHOCYTES ABSOLUTE MAN 2.46 K/mm3 (0.84-5.20); LYMPHOCYTES PERCENT MAN 27 % (21-46); METAMYELOCYTE ABSOLUTE MAN 0.18 K/mm3 (0.00-0.00); METAMYELOCYTE PERCENT MAN 2 % (0-0); MONOCYTES ABSOLUTE MAN 1.09 K/mm3 (0.16-1.47); MONOCYTES PERCENT MAN 12 % (4-13); NEUTROPHILS ABSOLUTE MAN 4.83 K/mm3 (1.96-9.15); SEG NEUTROPHILS PERCENT MAN 50 % (41-73); TOTAL CELLS COUNTED 100
--- NOTE | 2022-08-25 09:23 | NUR ---
SHIFT ASSESSMENT PT INTUBATED AND SEDATED. VENT SETTINGS AC-16/420/12/45% c SATS >90%. PROPOFOL GTT INFUSING @ 30MCG/KG/MIN, TITRATED DOWN TO 20MCG/KG/MIN. PT ABLE TO FOLLOW SIMPLE COMMANDS, SQUEEZES BOTH HANDS, MOVING EXTREMITIES. WITH PROPOFOL AT LOWER DOSE PT BECOMES AGITATED, FIGHTING VENTILATOR, PULLING ON RESTRAINTS HARD. SKIN EXCORIATED IN FOLDS, APPLIED MEDICATED POWDER AND LINEN TO FOLDS. TF INFUSING VIA OGT @ GOAL RATE. RECTAL TUBE IN PLACE WITH LIQUID STOOL. TEMP PROBE DALY DRAINING [place] URINE, TEMP SENSOR NOT WORKING. TEMP TAKEN VIA ORAL CORE TEMP PROBE. PT REMAINS FEBRILE, COOLING PAD UNDER PATIENT.
--- NOTE | 2022-08-25 17:57 | NUR ---
SHIFT SUMMARY PT REMAINS INTUBATED AND OFF OF SEDATION. PT MOVED TO BEDSIDE CHAIR THIS AFTERNOON, TOLERATING WELL. PT ALERT, FOLLOWING COMMANDS, RECOGNIZES AT BEDSIDE. AROUND 11:00 VENT SETTINGS CHANGED TO SPONTANEOUS, REMAINED ON SPONTANEOUS UNTIL AROUND 1700. NOW ON VC-16/420/5/45% c SATS >90%. PT C/O OF BACK PAIN, GRIMACING, MEDICATED X 1 DOSE OF 50MCG FENTANYL WITH ADEQUATE RELIEF. TF RATE INCREASED TO 35ML/HR, GOAL OF 45ML/HR. RECTAL TUBE PATENT, DRAINING LIQUID STOOL. DALY CATH DRAINING [place] URINE. WILL CONTINUE TO MONITOR CLOSELY, REPORT TO ONCOMING NURSE.
--- NOTE | 2022-08-25 20:14 | NUR ---
ASSUMMED CARE FROM WESTLEY KIRBY. PT UP IN CHAIR AND TRANSFERRED BACK TO BED AND WAS GIVEN A BED BATH AND PLACED A COOLING BLANKET UNDERNEATH FOR TEMPERATURE CONTROL. PT IS ALERT AND FOLLOWING COMMANDS, ANSWERING YES AND NO QUESTIONS. C/O PAIN - PRN FENTANYL GIVEN PER EMAR, OFF SEDATION. CARMONA. STILL INTUBATED 16420/5/45%. CPT STARTED TODAY TO HELP PT CLEAR SECRETIONS. HR IN 110-120s, BP STABLE, TEMPERATURE STILL ELEVATED AT 101.4. RECTAL TUBE AND DALY STILL IN PLACE AND DRAINING. OGT STILL INTACT AND INFUSING TF. HECTOR PICC LINE SL
[2022-08-26 05:07] LABS: Albumin, Blood 2.5 g/dL (3.4-5.0); Anion Gap 7 mmol/L (6-16); Blood Urea Nitrogen 32 mg/dL (8-24); Bun/Creatinine Ratio 40.4 (12.0-20.0); CO2, Blood 33 mmol/L (21-32); Calcium, Blood 9.3 mg/dL (8.5-10.1); Chloride, Blood 108 mmol/L (98-108); Creatinine, Blood 0.79 mg/dL (0.40-1.00); Glomerular Filtration Rate 89 (60-); Glucose, Blood 125 mg/dL (70-99); Phosphorus, Blood 2.9 mg/dL (2.5-4.9); Potassium, Blood 2.9 mmol/L (3.5-5.5); Sodium, Blood 148 mmol/L (136-145)
[2022-08-26 05:39] LABS: Magnesium, Blood 1.3 mg/dL (1.6-2.4)
--- NOTE | 2022-08-26 06:23 | NUR ---
SHIFT SUMMARY PT APPEARED TO BE IN PAIN OVERNIGHT AND NODDED HER HEAD WHEN ASKED. PRN FENTANYL GIVEN PER EMAR. STILL OFF SEDATION. PRETTY UNEVENTFUL NIGHT. PT IS STILL FOLLOWING COMMANDS, SEEMS TO HAVE GOTTEN SOME REST OVERNIGHT. STILL INTUBATED ON A/C MODE, TV 420, PEEP 5, FIO2 45%, RATE 16 VS STABLE AND TEMP STAYED BELOW 101.8 WITH COOLING BLANKET. SINUS TACH WITH OCCAISIONAL PVC'S AND THIS AM PT HAD A POTASSIUM LEVEL 2.9 AND MAG 1.3. OGT INFUSING CONTINOUS TF AT GOAL RATE WITH NO RESIDUALS. RECTAL TUBE DRAINING LIQUID BROWN STOOL AND DALY STILL DRAINING DARK YELLOW URINE. SBW RESTRAINTS REMAIN IN PLACE.
--- NOTE | 2022-08-26 13:57 | NUR ---
Spiritual Care Visit. Pt. is intubated and only responded ocassionally. Spouse (or SO) is present at bedside. Spouse verbalizes an aspiration that Pt. would be extubated soon. Listen empathetically with a calming presence. Established some rapport with the Spouse. Spouse verbalized gratitude for the spiritual care visit.
--- NOTE | 2022-08-26 17:20 | NUR ---
SHIFT SUMMARY NO ACUTE CHANGES THIS SHIFT. PT REMAINS INTUBATED AND NOT SEDATED. PT AWAKE MOST OF THE SHIFT AND IS ABLE TO FOLLOW SIMPLE COMMANDS. PT OCCASIONALLY SHAKES HEAD YES/NO IN RESPONSE TO QUESTIONS. PT UP TO CHAIR THIS MORNING AND HAS DONE WELL IN CHAIR THROUGHOUT THE DAY. PT ON PRESSURE SUPPORT 8/5, FIO2 45% MOST OF THIS SHIFT. PT RESTING QUIETLY THIS AFTERNOON AND NEEDED TO BE SWITCHED BACK TO AC 16, TV 420, PEEP 5, FIO2 45%. OGT IN PLACE WITH TF INFUSING AT GOAL RATE. PICC TO HECTOR REMAINS C/D/I. NS INFUSING TKO. DALY IN PLACE WITH YELLOW OUTPUT NOTED. RECTAL TUBE REMAINS IN PLACE WITH LIQUID BROWN OUTPUT NOTED. WOUNDS REMAIN UNCHANGED. PT FAMILY AT BEDSIDE AND UPDATED TO PLAN OF CARE. VITAL SIGNS STABLE. PT REMAINS FEBRILE. WILL CONTINUE TO MONITOR AND REPORT OFF TO ONCOMING RN.
--- NOTE | 2022-08-26 22:42 | NUR ---
ASSUMED CARE PT INTUBATED WITH SEDATION ON SB AT 1900. AC/VC 16/420/5/45%. PT AWAKE, FOLLOWING DIRECTIONS AND MOVING ALL EXTREMITIES. PT IS RESTLESS, SHAKING HEAD AND NODDED HEAD WHEN ASKED IF SHE WAS IN PAIN. MEDICATED PER EMAR. PT FEBRILE AND HOT TO TOUCH. ICE BAGS AND COOLING BLANKET APPLIED. OGT IN PLACE WITH VITAL HP INFUSING AT GOAL OF 40ML/HR. DALY PATENT AND DRAINING TO GRAVITY. RECTAL TUBE IN PLACE. SEE SHIFT ASSESSMENT FOR FULL ASSESSMENT.
[2022-08-27 03:41] LABS: BASOPHILS ABSOLUTE AUTO 0.13 K/mm3 (0.00-0.23); BASOPHILS PERCENT AUTO 2 % (0-2); EOSINOPHILS ABSOLUTE AUTO 0.62 K/mm3 (0.00-0.68); EOSINOPHILS PERCENT AUTO 8 % (0-6); Hematocrit 31.2 % (33.0-51.0); Hemoglobin 9.5 g/dL (11.5-16.0); IMMATURE GRAN ABSOLUTE AUTO 0.07 K/mm3 (0.00-0.10); IMMATURE GRAN PERCENT AUTO 1 % (0-1); LYMPHOCYTES ABSOLUTE AUTO 2.37 K/mm3 (0.84-5.20); LYMPHOCYTES PERCENT AUTO 31 % (21-46); MONOCYTES ABSOLUTE AUTO 0.73 K/mm3 (0.16-1.47); MONOCYTES PERCENT AUTO 10 % (4-13); Mean Corpuscular HGB 36.5 pg (26.0-34.0); Mean Corpuscular HGB Conc 30.4 g/dL (31.5-36.5); Mean Corpuscular Volume 120 fL (80-100); Mean Platelet Volume 10.9 fL (9.1-12.4); NEUTROPHILS ABSOLUTE AUTO 3.71 K/mm3 (1.96-9.15); NEUTROPHILS PERCENT AUTO 49 % (41-73); NRBC ABSOLUTE 0.35 K/mm3 (0.00-0.02); NRBC Auto 4.6 /100 WBC (0.0-0.2); Platelet Count 296 K/mm3 (150-400); RDW Coefficient Variation 17.2 % (11.7-14.2); RDW Standard Deviation 73.8 fL (35.1-46.3); White Blood Cell Count 7.63 K/mm3 (4.00-11.30)
[2022-08-27 04:02] LABS: Magnesium, Blood 1.8 mg/dL (1.6-2.4)
[2022-08-27 04:20] LABS: Albumin, Blood 2.4 g/dL (3.4-5.0); Albumin/Globulin Ratio 0.7 (0.8-1.8); Bilirubin, Total 1.9 mg/dL (0.1-1.0); Bun/Creatinine Ratio 31.5 (12.0-20.0); Calcium, Blood 8.6 mg/dL (8.5-10.1); Creatinine, Blood 1.08 mg/dL (0.40-1.00); Globulin, Blood 3.5 g/dL (2.2-4.0); Potassium, Blood 3.6 mmol/L (3.5-5.5); Total Protein, Blood 5.9 g/dL (6.4-8.2)
--- NOTE | 2022-08-27 05:00 | NUR ---
SPONTANEOUS BERATHING TRIAL PT OFF SEDATION AT 0430. PT AWAKE, ALERT AND FOLLOWING DIRECTIONS. RT SWITCHED PT TO PS 07/22 AT 0445. PT TOLERATING SBT WELL, MAINTAINING SATS GREATER THAN 90% WITH FIO2 OF 55%. PT RESTLESS AND MOVING LEGS. WHEN ASKED IF SHE WAS IN PAIN, PT SHOOK HEAD NO.
--- NOTE | 2022-08-27 05:46 | NUR ---
SHIFT SUMMARY NO ACUTE EVENTS OVERNIGHT. PT REMAINS INTUBATED. SWITCHED TO PS 07/22 FOR SBT. SEE PREVIOUS NOTE. MEDICATED FOR PAIN PER EMAR. TMAX OF 100.9 F. COOLING BLANKET APPLIED. PT DENIES BEING COLD. OGT INFUSING VITAL HP 40ML/HR. DALY PATENT AND DRAINING TO GRAVITY. RECTAL TUBE IN PLACE.
--- NOTE | 2022-08-27 14:57 | NUR ---
Spiritual Care Visit. Pt. is somnilent in bed. Spouse is present and welcomes my visit. Pt. was extubated earlier in the day, and is able to respond with a nod of her head. Pt. gives evidence that she welcomes spiritual care. Establish rapport with Pts. spouse. [place] for Pt. and spouse. Spouse verbalizes gratitude forthe spiritual care visit. Will remain available to the family.
--- NOTE | 2022-08-27 16:56 | NUR ---
SHIFT SUMMARY PT DID WELL THIS SHIFT. PT EXTUBATED THIS MORNING AND HAS DONE WELL WITH HIFLOW NC. PT CURRENTLY TITRATED DOWN TO 8L O2. VITAL SIGNS HAVE REMAINED STABLE. PT HAS REMAINED NPO DUE TO SOMNOLENCE S/P EXTUBATION. PT WITH BREIF PERIODS OF BEING MORE ALERT AND TRACKS WHEN IN ROOM. PT WITH GOOD COUGH EFFORT. PICC TO HECTOR REMAINS IN PLACE, SALINE LOCKED. ADLY IN PLACE WITH DARK YELLOW URINE OUTPUT NOTED. RECTAL TUBE IN PLACE WITH LIQUID BROWN OUTPUT NOTED. PT UP IN RECLINER CHAIR WITH LIFT THIS AFTERNOON. PT SPOUSE AT BEDSIDE THIS AFTERNOON. WILL CONTINUE TO MONITOR AND REPORT OFF TO ONCOMING RN.
--- NOTE | 2022-08-27 19:00 | NUR ---
ASSSUMED CARE PT RESTING IN CHAIR. EYES CLOSED, AND BREATHING EASILY. ON 8L NC WITH SPO2 GREATER THAN 90%. PT HAS STRONG COUGH. VSS. DALY PATENT AND DRAINING TO GRAVITY. RECTAL TUBE IN PLACE.
--- NOTE | 2022-08-27 20:47 | NUR ---
CALL TO MD CALL MADE TO DR STUART REGARDING PT'S NEURO STATUS. ORDERS RECEIVED FOR STAT VBG AND AMMONIA LEVEL. BLOOD SENT TO LAB.
[2022-08-27 20:49] LABS: Base Excess Venous 4.9 mmol/L; Bicarbonate Venous 27.3 mmol/L (24.0-30.0); PCO2 Venous 70.3 mmHg (38-42); pH Blood Venous 7.27 (7.34-7.37)
--- NOTE | 2022-08-27 21:30 | NUR ---
NEW ORDERS DR. STUART CALLED WITH NEW ORDERS FOLLOWING VBG RESULTS TO PLACE PATIENT ON BIPAP AND RECHECK VBG WITH MORNING LABS. PATIENT IS ON BIPAP AND VBG ORDER PLACED.
--- NOTE | 2022-08-28 00:42 | NUR ---
CALL TO MD DR STUART NOTIFIED OF PT BEING AGITATED, AND RESTLESS. CONFIRMED IF HE WAS AWARE OF PTS APNEIC PERIOD ON DAYSHIFT FOLLOWING PRECEDEX INITIATION AND IF HE WOULD LIKE PRECEDEX RE-STARTED IF NEEDED VS ATIVAN OR VERSED. DR STUART CONFIRMED TO START PRECEDEX IF NEEDED OVER OTHER MEDICATIONS AT THIS TIME.
[2022-08-28 03:53] LABS: Base Excess Venous 4.5 mmol/L; Bicarbonate Venous 27.3 mmol/L (24.0-30.0); PCO2 Venous 70.5 mmHg (38-42)
[2022-08-28 03:54] LABS: pH Blood Venous 7.26 (7.34-7.37)
[2022-08-28 03:57] LABS: BASOPHILS ABSOLUTE AUTO 0.18 K/mm3 (0.00-0.23); BASOPHILS PERCENT AUTO 2 % (0-2); EOSINOPHILS ABSOLUTE AUTO 0.74 K/mm3 (0.00-0.68); EOSINOPHILS PERCENT AUTO 9 % (0-6); Hematocrit 31.8 % (33.0-51.0); Hemoglobin 9.3 g/dL (11.5-16.0); IMMATURE GRAN ABSOLUTE AUTO 0.13 K/mm3 (0.00-0.10); IMMATURE GRAN PERCENT AUTO 2 % (0-1); LYMPHOCYTES ABSOLUTE AUTO 1.97 K/mm3 (0.84-5.20); LYMPHOCYTES PERCENT AUTO 25 % (21-46); MONOCYTES ABSOLUTE AUTO 1.11 K/mm3 (0.16-1.47); MONOCYTES PERCENT AUTO 14 % (4-13); Mean Corpuscular HGB 35.6 pg (26.0-34.0); Mean Corpuscular HGB Conc 29.2 g/dL (31.5-36.5); Mean Corpuscular Volume 122 fL (80-100); Mean Platelet Volume 10.9 fL (9.1-12.4); NEUTROPHILS ABSOLUTE AUTO 3.92 K/mm3 (1.96-9.15); NEUTROPHILS PERCENT AUTO 49 % (41-73); NRBC ABSOLUTE 0.24 K/mm3 (0.00-0.02); Platelet Count 301 K/mm3 (150-400); RDW Coefficient Variation 17.2 % (11.7-14.2); RDW Standard Deviation 76.4 fL (35.1-46.3); Red Blood Cell Count 2.61 M/mm3 (3.80-5.20); White Blood Cell Count 8.05 K/mm3 (4.00-11.30)
[2022-08-28 04:22] LABS: Albumin, Blood 2.7 g/dL (3.4-5.0); Albumin/Globulin Ratio 0.8 (0.8-1.8); Bilirubin, Direct 1.3 mg/dL (0.0-0.3); Bilirubin, Indirect 0.3 mg/dL (0.1-0.7); Bilirubin, Total 1.6 mg/dL (0.1-1.0); Globulin, Blood 3.6 g/dL (2.2-4.0); Total Protein, Blood 6.3 g/dL (6.4-8.2)
--- NOTE | 2022-08-28 05:29 | NUR ---
APNEIC PERIOD PATIENT BECAME RESTLESS IN BED, SHAKING LEGS AND SHAKING HEAD SIDE TO SIDE WHILE MOANING. VSS-SPO2 MID 90'S AND RR 18-20'S. FENTANYL 100MCG IV GIVEN FOR PAIN. PATIENT BECAME APNEIC WITH RATE DROPPING TO 12-BIPAP ADMINISTERING BACK UP BREATHS WITH MINIMAL CHEST RISE AND SPO2 DROPPING TO MID 80'S. PATIENT BARELY OPENS EYES TO STERNAL RUB AND PAINFUL STIMULATION. NARCAN 0.4MG IV ADMINISTERED WITH PATIENT BECOMING AROUSABLE. SPO2 INCREASED TO HIGH 90'S, RR 20'S, PATIENT MOANING AND MOVING ALL EXT IN BED. DR. STUART NOTIFIED OF EVENT.
--- NOTE | 2022-08-28 06:05 | NUR ---
SHIFT SUMMARY PT ON BIPAP T/O NIGHT. CURRENTLY 16/10 FIO2 50%. SPO2 GREATER THAN 92%. ST 110'S. BP STABLE. T MAX 99.4. PT AGITATED AT TIMES, MOANING, AND SHAKING HEAD SIDE TO SIDE. MEDICATED PER EMAR. SEE PREVIOUS NOTE FOR APNEIC PERIOD R/T FENTANYL. DOES NOT FOLLOW ANY COMMANDS. DOES ANSWER QUESTIONS BY NODDING YES/NO AT TIMES. DALY PATENT AND DRAING TO GRAVITY. RECTAL TUBE IN PLACE. DR STUART NOTIFIED OF LABS. NO NEW ORDERS AT THIS TIME.
[2022-08-28 07:44] LABS: Bun/Creatinine Ratio 28.9 (12.0-20.0); Calcium, Blood 9.2 mg/dL (8.5-10.1); Creatinine, Blood 1.35 mg/dL (0.40-1.00); Potassium, Blood 4.6 mmol/L (3.5-5.5)
--- NOTE | 2022-08-28 09:38 | NUR ---
AM NOTE... ASSUMED CARE OF PT AT 0700, THE PT IS ON BIPAP AT 18/10 AND 50% WITH O2 SATS >92% L/S COARSE T/O WITH WHEEZES ON THE LEFT SIDE. RR IN THE 20'S. THE PT OPENS EYES TO VERBAL STIMULI BUT DOES NOT FOLLOW COMMANDS AT THIS TIME. THE PT IS IN SINUS TACH IN THE 100'S-110'S. BP IS STABLE. PT HAS 2+ EDEMA NOTED TO HER BLE AND DEPENDENT EDEMA NOTED TO HER BUE AND HIPS/SACRUM. BT PRESENT AND HYPERACTIVE, ABD IS FIRM D/T ABD WALL EDEMA. THE PT'S DALY IS PATENT AND DRAINING ORANGE URINE TO GRAVITY. RECTAL TUBE IN PLACE DRAINING LIQUID BROWN STOOL TO GRAVITY. THE PT IS AGITATED AND LIGHTLY THRASHING IN THE BED, PT IS ALSO MOANING BUT WILL NOT RESPOND WHEN ASKED WHAT IS WRONG. 0930: DR. GUAMAN AT THE BEDSIDE TO ASSESS THE PT, THE PT'S FIO2 WAS DECREASED FROM 50% TO 40% WITH O2 SATS >92%. WILL CONTINUE TO MONITOR.
--- NOTE | 2022-08-28 13:00 | NUR ---
UPDATE DOBHOFF IN, WAITING ON CHEST X-RAY. PT DID NOT TOLERATE BEING OFF BIPAP.
--- NOTE | 2022-08-28 14:09 | NUR ---
UPDATE TUBE FEED INITIATED PER ORDER.
--- NOTE | 2022-08-28 17:20 | NUR ---
SHIFT ASSESSMENT PT IS IN BED W/ BIPAP 18/10 40%; SPO2 >92%. MAP >65. PT IS ALERT, BUT IS CONFUSED. FOLLOWS DIRECTIONS AND RESPONDS APPROPRIATELY INTERMITTANTLY. WAS UP IN CHAIR FOR MOST OF DAY AND AGITATED. NOW IN BED AND TOLERATING BIPAP. DOBHOFF IN W/ PIVOT 1.5 AT 25MLS/HR W/ Q4H 30ML FLUSH.
--- NOTE | 2022-08-28 22:55 | NUR ---
ASSUMED CARE AT 1900 PT LAYING IN BED ON BIPAP AT SHIFT CHANGE. SHE SPONTANIOUSLY OPENS EYES AND OCCATIONALLY FOLLOWS DIRECTIONS; SHE WAS ABLE TO ANSWER Y/N QUESTIONS WEAKLY; WEAKLY MOVES EXTREMITIES; OCCATIONALLY YELLS OUT AND APPREAS RESTLESS BUT CALMS SELF DOWN. PT DEPENDENT ON BIPAP WITH SETTINGS 18/10, FIO2 40%, SPO2 92-95%. HR 100-110. BP STABLE; SBP 130'S. PIVOT INFUSING AT 25ML/HR VIA DOBHOFF WITH 30ML WATER FLUSHES Q4HR; GOAL RATE IS 50ML/HR; DOBHOFF MOVED UNDER BIPAP MASK. RECTAL TUBE IN PLACE AND DRAINING BROWN LIQUID STOOL. DALY IN PLACE AND DRAINING TO GRAVITY. PICC TO HECTOR PATENT WITH DRESSING C/D/I. SEE SHIFT ASSESSMENT FOR FULL ASSESSMENT.
--- NOTE | 2022-08-28 23:05 | NUR ---
UPDATE PIVOT INCREASED TO 40ML/HR AT 2230. GOAL IS 50ML/HR. CAN BE INCREASED AGAIN IN 8 HOURS.
[2022-08-29 05:05] LABS: BASOPHILS ABSOLUTE AUTO 0.14 K/mm3 (0.00-0.23); BASOPHILS PERCENT AUTO 2 % (0-2); EOSINOPHILS ABSOLUTE AUTO 0.73 K/mm3 (0.00-0.68); EOSINOPHILS PERCENT AUTO 9 % (0-6); Hematocrit 32.5 % (33.0-51.0); Hemoglobin 9.6 g/dL (11.5-16.0); IMMATURE GRAN ABSOLUTE AUTO 0.14 K/mm3 (0.00-0.10); IMMATURE GRAN PERCENT AUTO 2 % (0-1); LYMPHOCYTES ABSOLUTE AUTO 2.27 K/mm3 (0.84-5.20); LYMPHOCYTES PERCENT AUTO 28 % (21-46); MONOCYTES ABSOLUTE AUTO 0.99 K/mm3 (0.16-1.47); MONOCYTES PERCENT AUTO 12 % (4-13); Mean Corpuscular HGB 35.8 pg (26.0-34.0); Mean Corpuscular HGB Conc 29.5 g/dL (31.5-36.5); Mean Corpuscular Volume 121 fL (80-100); Mean Platelet Volume 11.2 fL (9.1-12.4); NEUTROPHILS PERCENT AUTO 47 % (41-73); NRBC ABSOLUTE 0.22 K/mm3 (0.00-0.02); NRBC Auto 2.7 /100 WBC (0.0-0.2); Platelet Count 320 K/mm3 (150-400); RDW Coefficient Variation 17.5 % (11.7-14.2); RDW Standard Deviation 77.3 fL (35.1-46.3); Red Blood Cell Count 2.68 M/mm3 (3.80-5.20); White Blood Cell Count 8.07 K/mm3 (4.00-11.30)
[2022-08-29 05:38] LABS: Albumin, Blood 2.9 g/dL (3.4-5.0); Albumin/Globulin Ratio 0.8 (0.8-1.8); Bilirubin, Total 1.4 mg/dL (0.1-1.0); Calcium, Blood 9.4 mg/dL (8.5-10.1); Creatinine, Blood 1.29 mg/dL (0.40-1.00); Globulin, Blood 3.8 g/dL (2.2-4.0); Magnesium, Blood 1.8 mg/dL (1.6-2.4); Phosphorus, Blood 2.6 mg/dL (2.5-4.9); Potassium, Blood 4.1 mmol/L (3.5-5.5); Total Protein, Blood 6.7 g/dL (6.4-8.2)
--- NOTE | 2022-08-29 06:15 | NUR ---
END OF SHIFT SUMMARY NO ACUTE EVENTS OVERNIGHT. PT CONT TO BE RESPONSIVE TO PAINFUL STIMULI AND OCCATIONALLY FOLLOWS DIRECTIONS OF OPENING EYES AND MOVING EXTREMITIES; SHE WAS ABLE TO ANSWER SOME Y/N QUESTIONS AND MOANS. ON BIPAP ALL NIGHT WITH SETTINGS 18/10, FIO2 40%, SPO2 92-95%. AFEBRILE. HR 110-120. BP STABLE, SBP 130'S. PIVOT INFUSING VIA DOBHOFF AT 40ML/HR (GOAL IS 50ML/HR), DOBHOFF REPOSITIONED Q4HR WITH ORAL CARE. RECTAL TUBE IN PLACE WITH 200ML OUTPUT. DALY INPLACE WITH 850ML OUTPUT. SKIN SHOWS IMPROVEMENT WITH MEDICATED POWDER AND CREAM. WILL REPORT TO AM RN WHEN AVAILABLE.
--- NOTE | 2022-08-29 08:15 | NUR ---
Received report from Virginia CHRISTY. Patient supine with HOB slightly elevated. She is on BIPAP 18/10 40% and sats 94%. She has PICC line to HECTOR and is flushed and SL and dressing WNL's. She withdrawls to care and painful stimuli, does not verabalize or follow directions, She has Dobhoff and is infusing meds and Pivot 1.5 at 40 ml/hr and 30 ml water flushes Q4. She has 16Fr temp escamilla draining to gravity light emmett colored urine. Rectal tube in place and has liquid green/brown stool. She has bilateral sogt wrist retrsainst to protect lines and tubes/BIPAP. MAEW and good strength.
--- NOTE | 2022-08-29 10:04 | NUR ---
Patient resting on BIPA. Gave significant other update report. Patient received chlorhexidine bath and linen change. She tolerated am meds IV, and through dobhoff tube. She remains on BIPAP at 18/10 and 40% with 20 min CPT. Reapplied powder and pik cream to fold areas.
--- NOTE | 2022-08-29 12:38 | NUR ---
Patient awake at time moving extremities. She denies pain. She answers simple questions yes and no knodding. We trialed very breifly off BIPAP and lasted for about minute and dropped to 65% and replaced BIPAP at 18/10 40% and she came backup quickly. Repositioned and tried some oral care and she would bite on catheter and not allow cleaning. TF continue. She has wet cough that she is able to clear at times.
--- NOTE | 2022-08-29 14:53 | NUR ---
Dr Molina was in room and assessing patient and she was able to move toes on command and opened eyes with communnication. No changes to BIPAP at this time. Patient continues to refuse to allow he r mouth care.
--- NOTE | 2022-08-29 16:37 | NUR ---
Patient remains unchanged. No significant changes. Boosted and repositioned.
--- NOTE | 2022-08-29 17:32 | NUR ---
Patient remains on BIPAP 18/10 and 40% with sats >90%. Repositioned and boosted and cleaned backside and linen change. Patient escamilla patent and had 1250 light emmett colored urine out, 500 ml liquid brown stool from rectal tube and Dobhoff continues to infuse Pivot 1.5 at 50 ml/hr and 30 ml water flushes Q6. Patient moves all extremities while in bed with gross movements. Opens eyes to verbal stimuli and does not really follow commands or tracks. She remains in bilateral soft wrist restraints.
[2022-08-30 03:37] LABS: BASOPHILS ABSOLUTE AUTO 0.12 K/mm3 (0.00-0.23); BASOPHILS PERCENT AUTO 1 % (0-2); EOSINOPHILS ABSOLUTE AUTO 0.65 K/mm3 (0.00-0.68); EOSINOPHILS PERCENT AUTO 8 % (0-6); Hematocrit 30.8 % (33.0-51.0); Hemoglobin 9.5 g/dL (11.5-16.0); IMMATURE GRAN ABSOLUTE AUTO 0.25 K/mm3 (0.00-0.10); IMMATURE GRAN PERCENT AUTO 3 % (0-1); LYMPHOCYTES ABSOLUTE AUTO 2.29 K/mm3 (0.84-5.20); LYMPHOCYTES PERCENT AUTO 27 % (21-46); MONOCYTES ABSOLUTE AUTO 1.21 K/mm3 (0.16-1.47); MONOCYTES PERCENT AUTO 15 % (4-13); Mean Corpuscular HGB 36.7 pg (26.0-34.0); Mean Corpuscular HGB Conc 30.8 g/dL (31.5-36.5); Mean Corpuscular Volume 119 fL (80-100); Mean Platelet Volume 11.2 fL (9.1-12.4); NEUTROPHILS ABSOLUTE AUTO 3.85 K/mm3 (1.96-9.15); NEUTROPHILS PERCENT AUTO 46 % (41-73); NRBC ABSOLUTE 0.27 K/mm3 (0.00-0.02); NRBC Auto 3.2 /100 WBC (0.0-0.2); Platelet Count 326 K/mm3 (150-400); RDW Standard Deviation 77.8 fL (35.1-46.3); Red Blood Cell Count 2.59 M/mm3 (3.80-5.20); White Blood Cell Count 8.37 K/mm3 (4.00-11.30)
[2022-08-30 03:48] LABS: Bun/Creatinine Ratio 37.4 (12.0-20.0); Calcium, Blood 9.4 mg/dL (8.5-10.1); Creatinine, Blood 1.07 mg/dL (0.40-1.00); Magnesium, Blood 1.8 mg/dL (1.6-2.4); Phosphorus, Blood 1.7 mg/dL (2.5-4.9); Potassium, Blood 4.3 mmol/L (3.5-5.5)
--- NOTE | 2022-08-30 06:34 | NUR ---
SHIFT SUMMARY: PATIENT HAD AN UNEVENTFUL NIGHT. REMAINS ON BIPAP 04/08 40%. SHE HAS BEEN TACHYPNEIC TOWARDS MORNING WITH RATES OCCASIONALLY IN UPPER 30S. FOR THE MOST PART RATE HAS BEEN HIGH-20S. LS COARSE THROUGHOUT. NERUOLOGICALLY SHE SEEMED TO FOLLOW BASIC COMMANDS LIKE BLINKING EYES AT START OF SHIFT. HOWEVER NOT DOING SO AT END OF SHIFT. ENTERIC FEEDING CONTINUES AT 50ML/HR VIA NG. FMS INTACT AND DRAINING; OUTPUT ROUGHLY 300ML. UOP ADEQUATE. SHE HAS BEEN TACHYCARDIC WITH RATES USUALLY IN THE 110S OR 120S. +3 EDEMA BUE/BLE WELL DEPENDENT EDEMA. TURNED Q2HR AND NEEDED. NO NEW SKIN CONCERNS NOTED.
--- NOTE | 2022-08-30 08:00 | NUR ---
Received report from Alex CHRISTY. Patient continues to rest on BIPAP 18/10 and 40% and sats >90%. She opens eyes to verbal stimuli but does not really track voive. She knods to simple questions and not really sure if following commands but squeezes hand and wiggles toes when touching and giving command.She has PICC line to HECTOR and dressing intact and site WNL's and is flushed and SL'd. She has escamilla draining to gravity light emmett colored urine. She also has rectal tube in place with brown liquid stool. OG in place and is infusing Pivot 1.5 at 50 ml/hr and 30 ml water flushes Q4. Repositioned and boosted in bed. VSS. Patient has ggod strength to all distal extremities and has gross movements.
--- NOTE | 2022-08-30 09:33 | NUR ---
Patient received full bed bath and linen change and up to chair with lift. She has no changes to BIPAP setting and resting quietly. Dr Molina made breif visit and no new orders.
--- NOTE | 2022-08-30 11:59 | NUR ---
No significant changes with patient. She has been resting on BIPAP in chair. VSS. Hutton and rectal tube patent. CARMONA in chair. Meds iv and PT.
--- NOTE | 2022-08-30 13:30 | NUR ---
Patient resp rate increased and went to assess and found that her dobhoff and came out from movement of mask and she was having TF in her mouth with possible aspiration and turned off TF and Dr Molina assessed and made soem BIPAP adjustments and decided to pull dobhoff rather than readvance. Her current BIPAP settings 18/ 60% and sats now low 90% rather on previous settings were in the 86%. Her significant other got here and Dr Molina talked with him about trach and peg and what again her wishes would be as she is not getting better and or moving forward to get better. Edgar (significant other) stated she stated last she wanted to live. He is at her chair side now.
[2022-08-30 15:26] LABS: PO2 Arterial 83.1 mmHg (80-100); pH Blood Arterial 7.14 (7.35-7.45)
[2022-08-30 15:27] LABS: PCO2 Arterial > 105 mmHg (35-45)
[2022-08-30 16:40] LABS: PO2 Arterial 90.3 mmHg (80-100)
[2022-08-30 16:41] LABS: PCO2 Arterial 87.1 mmHg (35-45); pH Blood Arterial 7.22 (7.35-7.45)
--- NOTE | 2022-08-30 17:01 | NUR ---
Dr Molina got ABG results and stated she needed to be intubated, he talked with significant other and agreed to intubate. She was intubated with 7.5 ET and 24 at teeth and vent settings of AC/VC+ 20/370/65 and sats 95%. OG placed to LIS and had about 300ml out intially.Hutton and rectal tube remains patent. Propofol at 30 mcg/kg/min through HECTOR PICC. She was intubated with 5 ml propofol x3.
--- NOTE | 2022-08-30 17:37 | NUR ---
Patient is sedtated and intubated. She has 7.5 et and 24 cm at teeth and vent settings of AC/VC+ 20/370/65/5 and sats >90%. She has rectal tube in place and had 500 ml of liquid brown stool. Hutton patent and had 1250 ml yellow urine out to gravity. She has Propofol at 30 mcg/kg/min for sedation and tolerating well. VSS. temp 99.8
[2022-08-31 04:04] LABS: BASOPHILS ABSOLUTE AUTO 0.11 K/mm3 (0.00-0.23); BASOPHILS PERCENT AUTO 1 % (0-2); EOSINOPHILS ABSOLUTE AUTO 0.41 K/mm3 (0.00-0.68); EOSINOPHILS PERCENT AUTO 4 % (0-6); Hematocrit 28.2 % (33.0-51.0); Hemoglobin 9.3 g/dL (11.5-16.0); IMMATURE GRAN ABSOLUTE AUTO 0.34 K/mm3 (0.00-0.10); IMMATURE GRAN PERCENT AUTO 4 % (0-1); LYMPHOCYTES ABSOLUTE AUTO 2.67 K/mm3 (0.84-5.20); LYMPHOCYTES PERCENT AUTO 27 % (21-46); MONOCYTES ABSOLUTE AUTO 1.28 K/mm3 (0.16-1.47); MONOCYTES PERCENT AUTO 13 % (4-13); Mean Corpuscular HGB 39.4 pg (26.0-34.0); Mean Corpuscular Volume 120 fL (80-100); Mean Platelet Volume 11.3 fL (9.1-12.4); NEUTROPHILS ABSOLUTE AUTO 5.01 K/mm3 (1.96-9.15); NEUTROPHILS PERCENT AUTO 51 % (41-73); NRBC ABSOLUTE 0.72 K/mm3 (0.00-0.02); NRBC Auto 7.3 /100 WBC (0.0-0.2); Platelet Count 306 K/mm3 (150-400); Red Blood Cell Count 2.36 M/mm3 (3.80-5.20); White Blood Cell Count 9.82 K/mm3 (4.00-11.30)
[2022-08-31 04:23] LABS: Magnesium, Blood 1.9 mg/dL (1.6-2.4)
[2022-08-31 06:00] LABS: Albumin, Blood 2.6 g/dL (3.4-5.0); Albumin/Globulin Ratio 0.8 (0.8-1.8); Bilirubin, Total 1.5 mg/dL (0.1-1.0); Bun/Creatinine Ratio 35.1 (12.0-20.0); Calcium, Blood 8.5 mg/dL (8.5-10.1); Creatinine, Blood 1.11 mg/dL (0.40-1.00); Globulin, Blood 3.4 g/dL (2.2-4.0); Phosphorus, Blood 2.7 mg/dL (2.5-4.9); Potassium, Blood 4.6 mmol/L (3.5-5.5)
--- NOTE | 2022-08-31 06:22 | NUR ---
SHIFT SUMMARY: AUTHOR ASSUMED PATIENT CARES FROM . GENERAL: NO ACUTE EVENTS OVERNIGHT. PATIENT APPEARS MORE COMFORTABLE. NEURO: WAXES AND WANES; OCCASIONALLY OPENS EYES SPONTANEOUSLY. NOT TRACKING OR FOLLOWING COMMANDS. LIGHTLY SEDATED ON PROPOFOL. AFEBRILE. PERRLA. CARDS: ST, BP WDL. +4 PITTING EDEMA IN ALL EXTREMITIES. RESP: MECHANICALLY VENTILATED; AC/VC 22/5/370/65%. SHE IS OVERBREATHING VENT SLIGHTLY, HOWEVER ETCO2 45-50. LS DIMINISHED. LIGHT SECRETION BURDEN. MSK: MOVES ARMS SPONTANOUSLY ON OCCASION. WEAK. IN BUE SOFT RESTRAINTS. INTEG: AUTHOR PLACED DROP BOOTS ON BLE. MEPILEX TO HEELS. TURNED Q2HR. GI/: DALY OUTPUTTING WELL; FMS INTACT WITH 800ML OUTPUT. BAG CHANGED.
--- NOTE | 2022-08-31 07:00 | NUR ---
Assumed care of pt at 0700 Bedside report recieved from WESTLEY Johnson. Pt sedated on Propofol at 30mcg/kg/min and appears comfortable. On vent AC/VC with rate of 22, peep 5 FIO2 65%. OGT in place to LIS, rectal tube to gravity draining liquid stool, escamilla draining clear yellow urine. Plan is to consult ENT today for Trach placement. Pt will likely need LTAC/Vibra after trach placement. PICC Left Upper arm, flushing well. RN to continue to follow
--- NOTE | 2022-08-31 10:05 | NUR ---
Call placed to ENT Consult for trach placement per Dr. Perla. Call placed to Dr. Wanda Lux's office, left message on corporate receptionist line and on [place] line for Dr. Lux. Pt's name and as well as location, RN name and callback number provided on both messages. Dr. Minda chavez. RN to continue to follow.
--- NOTE | 2022-08-31 13:41 | NUR ---
CALLED ENT OFFICE NO CALL BACK RECEIVED FROM EARLIER MESSAGE TO ENT OFFICE RE: CONSULT FOR TRACH PLACEMENT. CALLED AND SPOKE WITH THE CERTIFIED ENDOSCOPY TECHNICIAN WHO RELAYS THAT DR. HAILE IS AWARE OF REFERRAL AND IS CURRENTLY AT THE HOSPITAL TO SEE THE PATIENT. DR. GUAMAN NOTIFIED. RN TO CONTINUE TO MONITOR
--- NOTE | 2022-08-31 18:51 | NUR ---
END OF SHIFT SUMMARY NEURO STATUS REMAINS UNCHANGED. PT WILL OPEN EYES SPONTANEOUSLY WHEN SEDATION WEANED DOWN/OFF, DOES NOT FOLLOW COMMANDS. SOFT RESTRAINTS TO BILAT WRISTS TO PREVENT PULLING LINES/TUBES. PROPOFOL INFUSING AT 35MG/KG/MIN. SINUS TACH, BP REMIANS WNL. HAS 3-4+ PITTING EDEMA ON ALL EXTREMETIES, SEVERE DEPENDENT EDEMA. REMAINS INTUBATED AND ON VENTILATOR. AC/VC RATE 22, TIDAL VOLUMES BETWEEN 350-425, PEEP 10, FIO2 55%. SUCTIONED COPIOUS AMOUNTS OF [place]ITO/WHITE/THICK SECRETIONS ORALLY AND FROM ETT. PT HAS POOLING SECRETIONS AT BACK OF MOUTH FREQUENTLY. OGT TO LIS, 250 BILIOUS GREEN OUTPUT. TF ORDERED, PLAN TO START AT 10ML/HR TO RUN UNTIL MIDNIGHT AND THEN HOLD TUBE FEEDING FOR POSSIBLE SURGICAL PROCEDURE 09/01. IF TRACH NOT SCHEDULED FOR 09/01, OK TO RESUME TUBE FEEDING PER DR. GUAMAN. BOWEL SOUNDS HYPOACTIVE. RECTAL TUBE IN PLACE DRAINING LIQUID BROWN STOOL. 400ML OUT, FLUSHED WITH H20 EVERY 6 HOURS ORDERED. DALY PATENT AND DRAINING CLEAR YELLOW URINE, OCCASIONAL SEDIMENT. SKIN UNDER PANIS AREA IMPROVING WITH ONLY A FEW OPEN AREAS REMAINING. CLEANSED AND APPLIED BARRIER CREAM AND POWDER ORDERED BY ELECTRICAL CONTROL ASSEMBLER. BLISTER TO LEFT HEEL REMAINS UNCHANGED. REPORTED ON PREVIOUS SHIFT, PICTURE TAKEN AND PLACED IN CHART. BOOTS IN PLACE TO FLOAT HEELS. PICC TO RIGHT UPPER ARM, ALL PORTS FLUSH WELL. FAMILY IN TO VISIT (SO AND HIS SISTER). BOTH ARE IN AGREEMENT THAT PT WOULD WANT A "FIGHTING CHANCE" AND ARE READY TO PROCEED WITH TRACH AND PEG TUBE WITH PLANNED TRANSFER TO [facility] WHEN APPROPRIATE. ENT AND ANESTHESIA BOTH IN TO SEE PT TODAY FOR PLANNED TRACH. DR. HAILE ENT TO UPDATE ABOUT OR SCHEDULING WHEN DATE/TIME KNOWN. [facility] REFERRAL SENT BY CM TODAY.
[2022-09-01 04:04] LABS: BASOPHILS PERCENT AUTO 1 % (0-2); EOSINOPHILS ABSOLUTE AUTO 0.49 K/mm3 (0.00-0.68); EOSINOPHILS PERCENT AUTO 5 % (0-6); Hematocrit 29.4 % (33.0-51.0); Hemoglobin 9.5 g/dL (11.5-16.0); IMMATURE GRAN ABSOLUTE AUTO 0.46 K/mm3 (0.00-0.10); IMMATURE GRAN PERCENT AUTO 5 % (0-1); LYMPHOCYTES ABSOLUTE AUTO 2.89 K/mm3 (0.84-5.20); LYMPHOCYTES PERCENT AUTO 29 % (21-46); MONOCYTES ABSOLUTE AUTO 1.31 K/mm3 (0.16-1.47); MONOCYTES PERCENT AUTO 13 % (4-13); Mean Corpuscular HGB 38.2 pg (26.0-34.0); Mean Corpuscular HGB Conc 32.3 g/dL (31.5-36.5); Mean Corpuscular Volume 118 fL (80-100); Mean Platelet Volume 11.5 fL (9.1-12.4); NEUTROPHILS ABSOLUTE AUTO 4.74 K/mm3 (1.96-9.15); NEUTROPHILS PERCENT AUTO 48 % (41-73); NRBC ABSOLUTE 0.84 K/mm3 (0.00-0.02); NRBC Auto 8.4 /100 WBC (0.0-0.2); Platelet Count 314 K/mm3 (150-400); RDW Coefficient Variation 18.3 % (11.7-14.2); RDW Standard Deviation 77.6 fL (35.1-46.3); Red Blood Cell Count 2.49 M/mm3 (3.80-5.20); White Blood Cell Count 9.99 K/mm3 (4.00-11.30)
[2022-09-01 04:18] LABS: PCO2 Arterial 54.9 mmHg (35-45); PO2 Arterial 73.4 mmHg (80-100); pH Blood Arterial 7.42 (7.35-7.45)
[2022-09-01 04:24] LABS: Magnesium, Blood 1.9 mg/dL (1.6-2.4)
[2022-09-01 04:42] LABS: Albumin, Blood 2.5 g/dL (3.4-5.0); Albumin/Globulin Ratio 0.6 (0.8-1.8); Bilirubin, Total 1.7 mg/dL (0.1-1.0); Bun/Creatinine Ratio 33.9 (12.0-20.0); Calcium, Blood 8.6 mg/dL (8.5-10.1); Creatinine, Blood 1.21 mg/dL (0.40-1.00); Globulin, Blood 3.9 g/dL (2.2-4.0); Potassium, Blood 4.4 mmol/L (3.5-5.5); Total Protein, Blood 6.4 g/dL (6.4-8.2)
--- NOTE | 2022-09-01 06:38 | NUR ---
SHIFT SUMMARY: THIS AUTHOR ASSUMED PATIENT CARES FROM . GENERAL: NO ACUTE EVENTS OVERNIGHT. NEURO: NO CHANGE; WAXES AND WANES. SEDATED ON PROPOFOL. TMAX 100.5; PRN TYLENOL ADMINISTERED x1. SEEMED TO BE IN PAIN AT START OF SHIFT. PRN FENTANYL ORDERED AND ADMINISTERED x1. CARDS: ST; BP WDL. +4 PITTING EDEMA THROUGHOUT BEFORE. RESP: REMAINS MECHANICALLY VENTILATED. MODE: AC VC+/RATE 22/VT 370/ PEEP 10/FIO2 55%. LS DIMINISHED. MSK: BUE SOFT RESTRAINTS. WEAK. OCCASIONAL SPONTANEOUS MOVEMENT IN ARMS. INTEG: EXTENSIVE ISSUES. SEE NOTES AND WOUND CARE PLAN. NO NEW CONCERNS. BATH DONE. BOOTS ARE OFF AT THE MOMENT; HEELS COVERED WITH MEPILEX. Q2HR TURNS COMPLETED. GI/: FMS REMAINS IN PLACE WITH LESSENED OUTPUT. DALY PATENT AND DRAINING. URINE SEEMS MORE CONCENTRATED. TUBE FEEDING CURRENTLY OFF ANTICIPATING POSSIBLE TRACH PROCEDURE TODAY. WILL PASS ALONG TO DAY SHIFT TO RESTART AT 10ML/HR IF SHE DOESN'T HAVE SURGERY. LABS OF NOTE: AMMONIA UP TO 100; WILL NOTIFY DAY SHIFT.
--- NOTE | 2022-09-01 16:43 | NUR ---
SHIFT SUMMARY NO ACUTE CHANGES THIS SHIFT. PT REMAINS INTUBATED, VENT SETTINGS REMAIN AC 22, TV 370, PEEP 10, FIO2 55%. PROPOFOL TURNED OFF THIS MORNING AND HAS REMAINED OFF THROUGHOUT THE SHIFT. PT OPENS EYES SPONTANEOUSLY, AND OCCASIONALLY NODS YES/NO TO QUESTIONS. PT DOES NOT SQUEEZE HANDS UPON COMMAND. OGT IN PLACE, TF STARTED AT TRICKLE FEED THIS SHIFT. PICC TO HECTOR REMAINS IN PLACE WITH NS INFUSING TKO. DALY REMAINS IN PLACE WITH YELLOW OUTPUT NOTED. RECTAL TUBE REMAINS IN PLACE WITH LIQUID BROWN OUTPUT NOTED. SBW RESTRAINTS IN PLACE. PT PULLS AT RESTRAINTS. PT SPOUSE AT BEDSIDE THIS AFTERNOON. DR HAILE, ENT UPDATED TO PT CONDITION THIS EVENING. VITAL SIGNS STABLE. WILL CONTINUE TO MONITOR AND REPORT OFF TO ONCOMING RN.
--- NOTE | 2022-09-01 16:49 | NUR ---
Spiritual Care Visit Pt. is and not reponsive. Spouse is present and welcomes my visit. Spouse is unsettled by his perceived delay in treatment. Listen empathetically with a pastoral presence. Spouse displays evidence of catharsis as we consider issues of christiane and belief. Normalized the Pt. experience. Prayed for both Pt. and Spouse. Spouse verbalized gratitude for the spiritual care visit. Will remain available to family.
--- NOTE | 2022-09-01 19:00 | NUR ---
ASSUMED CARE ASSUMED CARE OF PATIENT. REMAINS INTUBATED- AC/VC+ 22, TV 370, PEEP 10, FIO2 55%. RR 25. PT IS NOT SEDATED AT THIS TIME. OPENS EYES SPONTANEOUSLY, TRACKS WITH EYES. MOVES ALL EXTREMITIES WEAKLY. BILATERAL SOFT WRIST RESTRAINTS IN PLACE TO PREVENT SELF-EXTUBATION. PT APPEARS ANXIOUS AT TIMES AND IS TEARFUL, BUT CALMS WITH REASSURANCE. MONITOR SHOWS ST, RATE 110-115. BP STABLE. OG WITH VITAL HIGH PROTEIN AT 25ML/HR (GOAL IS 50ML/HR). RECTAL TUBE DRAINING TO GRAVITY- BROWN LIQUID STOOL. DALY PATENT AND DRAINING TO GRAVITY. HECTOR PICC LINE NOTED. SEE SHIFT ASSESSMENT FOR FULL ASSESSMENT.
[2022-09-02 04:27] LABS: BASOPHILS ABSOLUTE AUTO 0.07 K/mm3 (0.00-0.23); BASOPHILS PERCENT AUTO 1 % (0-2); EOSINOPHILS ABSOLUTE AUTO 0.61 K/mm3 (0.00-0.68); EOSINOPHILS PERCENT AUTO 6 % (0-6); Hematocrit 30.3 % (33.0-51.0); Hemoglobin 9.4 g/dL (11.5-16.0); IMMATURE GRAN ABSOLUTE AUTO 0.26 K/mm3 (0.00-0.10); IMMATURE GRAN PERCENT AUTO 3 % (0-1); LYMPHOCYTES ABSOLUTE AUTO 2.79 K/mm3 (0.84-5.20); LYMPHOCYTES PERCENT AUTO 27 % (21-46); MONOCYTES ABSOLUTE AUTO 1.35 K/mm3 (0.16-1.47); MONOCYTES PERCENT AUTO 13 % (4-13); Mean Corpuscular HGB 36.3 pg (26.0-34.0); Mean Corpuscular Volume 117 fL (80-100); Mean Platelet Volume 11.3 fL (9.1-12.4); NEUTROPHILS ABSOLUTE AUTO 5.44 K/mm3 (1.96-9.15); NEUTROPHILS PERCENT AUTO 52 % (41-73); NRBC ABSOLUTE 0.48 K/mm3 (0.00-0.02); NRBC Auto 4.6 /100 WBC (0.0-0.2); Platelet Count 305 K/mm3 (150-400); RDW Coefficient Variation 18.5 % (11.7-14.2); RDW Standard Deviation 76.7 fL (35.1-46.3); Red Blood Cell Count 2.59 M/mm3 (3.80-5.20); White Blood Cell Count 10.52 K/mm3 (4.00-11.30)
[2022-09-02 04:43] LABS: International Normalized Ratio 1.19; Prothrombin Time Results 12.4 Sec (9.7-11.5)
[2022-09-02 04:54] LABS: Albumin, Blood 2.7 g/dL (3.4-5.0); Albumin/Globulin Ratio 0.7 (0.8-1.8); Bilirubin, Total 1.3 mg/dL (0.1-1.0); Bun/Creatinine Ratio 39.3 (12.0-20.0); Calcium, Blood 8.7 mg/dL (8.5-10.1); Creatinine, Blood 1.07 mg/dL (0.40-1.00); Globulin, Blood 3.9 g/dL (2.2-4.0); Magnesium, Blood 1.6 mg/dL (1.6-2.4); Phosphorus, Blood 3.9 mg/dL (2.5-4.9); Potassium, Blood 3.9 mmol/L (3.5-5.5); Total Protein, Blood 6.6 g/dL (6.4-8.2)
--- NOTE | 2022-09-02 06:44 | NUR ---
SHIFT SUMMARY NO ACUTE CHANGES DURING NOC. REMAINS INTUBATED- AC/VC+ 22, TV 370, PEEP 10, FIO2 50%. RR 25-28. MONITOR SHOWS ST, RATE 110-120s. BP STABLE. TMAX 101.1F. TYLENOL 650MG OG GIVEN X 1 DOSE. MEDICATED WITH FENTANYL 50MCG IV X 2 DOSES FOR COMFORT AND VENT COMPLIANCE. PT CONTINUES TO OPEN EYES SPONTANEOUSLY AND TRACK MOVEMENT. MOVES ALL EXTREMITIES WEAKLY. INTERMITTENTLY FOLLOWS SIMPLE COMMANDS. OCCASIONALLY APPEARS ANXIOUS AND TEARFUL- CALMS WITH REASSURANCE. OG WITH VITAL HIGH PROTEIN AT 35ML/HR- GOAL IS 50ML/HR. RECTAL TUBE IN PLACE WITH LIQUID BROWN STOOL. DALY PATENT AND DRAINING TO GRAVITY. WILL REPORT TO ONCOMING RN WHEN AVAILABLE.
--- NOTE | 2022-09-02 08:00 | NUR ---
ASSUMED CARE OF PT THIS AM. PT INTUBATED, NO SEDATION INFUSING AT THIS TIME. PT. OPENS EYES TO VERBAL STIMULI, OCCASIONALLY FOLLOWING SOME COMMANDS. PT. REMAINS IN BILAT WRIST RESTRAINTS TO PREVENT SELF EXTUBATION. VENT SETTINGS CURRENTLY AC 22, TV 370, FIO2 50%, PEEP10 PT. GRIMACES AND TURNS HEAD WITH ORAL CARE. PT. HAS TF INFUSING AT 35ML/ HR TO BE INCREASED TO GOAL PER POLICY. PT. CONTINUES WITH LIQUID STOOL, RECTAL TUBE IN PLACE DRAINING LIQUID BROWN STOOL TO GRAVITY. PT. DALY IN PLACE, DRAINING TO GRAVITY. REPOSITIONED VIA LIFT.
--- NOTE | 2022-09-02 10:14 | NUR ---
PLANS FOR TRANSFER TO [facility], SAP DATA ANALYST REPORT COMPLETED AWAITING BED. PT PULLING AGAINST RESTRAINTS FREQUENTLY, RR REMAINS 27. PER DR. ROWENA MARES TO SEDATE VIA PROPOFOL FOR COMFORT, AND VENT TOLERANCE.
--- NOTE | 2022-09-02 13:41 | NUR ---
TRANSFER UPDATE AWAITING A BED AT [facility], ADDITIONAL FACILITIES CALLED FOR BED AVAILABILITY PER [facility] WIRELESS NETWORK ENGINEER. DR. GUAMAN UPDATED.
--- NOTE | 2022-09-02 15:34 | NUR ---
STILL AWAITING TRANSFER PT LINENS CHANGED, PT. CLAMPING MOUTH CLOSED WHEN ATTEMPTING ORAL CARE. PT. S/O TO BEDSIDE, UPDATED ON PLAN FOR TRANSFER AND ON CARE. PT. VSS AT THIS TIME.
--- NOTE | 2022-09-02 17:25 | NUR ---
BED ASSIGNMENT FROM [facility] BED 9. CALL PLACED TO SPECIALIST FIELD ENGINEER TO UPDATE ON TRANSFER WELL [facility] COORDINATOR. DR. GUAMAN NOTIFIED. FAMILY UPDATED WELL. NO BELONGINGS HERE WITH PT, SIGNIFICANT OTHER TOOK ALL BELONGINGS HOME.
--- NOTE | 2022-09-02 18:03 | NUR ---
REPORT TO [facility]. [facility].
--- NOTE | 2022-09-02 18:32 | NUR ---
TRANSFER CENTER NOTIFIED OF DEPARTURE.
== END 2022-09-02 18:30 | disposition short-term general hospital (02) | DRG 870 ==
LOC: ER 19:50 → ICUE 08-09 00:41 → ICUW 08-09 00:41 → ICUE 08-09 00:41
PROVIDERS: Internal Medicine; Internal Medicine Critical Care Medicine; Internal Medicine Nephrology; Physician Assistant; Student in an Organized Health Care Education/Training Program; ADMIT Internal Medicine
PROC: 3E033XZ Introduction of Vasopressor into Peripheral Vein, Percutaneous Approach (ICD-10-PCS; principal; 2022-08-09)
PROC: 5A1955Z Respiratory Ventilation, Greater than 96 Consecutive Hours (ICD-10-PCS; 2022-08-09)
PROC: 02HV33Z Insertion of Infusion Device into Superior Vena Cava, Percutaneous Approach (ICD-10-PCS; 2022-08-09)
PROC: B548ZZA Ultrasonography of Superior Vena Cava, Guidance (ICD-10-PCS; 2022-08-09)
PROC: 5A09557 Assistance with Respiratory Ventilation, Greater than 96 Consecutive Hours, Continuous Positive Airway Pressure (ICD-10-PCS; 2022-08-09)
PROC: 0BH17EZ Insertion of Endotracheal Airway into Trachea, Via Natural or Artificial Opening (ICD-10-PCS; 2022-08-13)
PROC: 0DH67UZ Insertion of Feeding Device into Stomach, Via Natural or Artificial Opening (ICD-10-PCS; 2022-08-13)
PROC: 5A0935A Assistance with Respiratory Ventilation, Less than 24 Consecutive Hours, High Flow/Velocity Cannula (ICD-10-PCS; 2022-08-27)
DX: A41.01 Sepsis due to Methicillin susceptible Staphylococcus aureus (principal); G92.8 Other toxic encephalopathy; J69.0 Pneumonitis due to inhalation of food and vomit; J96.01 Acute respiratory failure with hypoxia; J96.02 Acute respiratory failure with hypercapnia; R65.21 Severe sepsis with septic shock; J18.9 Pneumonia, unspecified organism; N17.0 Acute kidney failure with tubular necrosis; E87.1 Hypo-osmolality and hyponatremia; Z68.43 Body mass index [BMI] 50.0-59.9, adult; M35.1 Other overlap syndromes; F10.239 Alcohol dependence with withdrawal, unspecified; J44.0 Chronic obstructive pulmonary disease with (acute) lower respiratory infection; D68.9 Coagulation defect, unspecified; J95.851 Ventilator associated pneumonia; E87.0 Hyperosmolality and hypernatremia; K70.10 Alcoholic hepatitis without ascites; K76.0 Fatty (change of) liver, not elsewhere classified; E87.5 Hyperkalemia; E83.42 Hypomagnesemia; D53.9 Nutritional anemia, unspecified; E66.01 Morbid (severe) obesity due to excess calories; G47.33 Obstructive sleep apnea (adult) (pediatric); M54.9 Dorsalgia, unspecified; G89.29 Other chronic pain; K21.9 Gastro-esophageal reflux disease without esophagitis; I10 Essential (primary) hypertension; R74.01 Elevation of levels of liver transaminase levels; I27.20 Pulmonary hypertension, unspecified; K76.82 Hepatic encephalopathy; B96.89 Other specified bacterial agents as the cause of diseases classified elsewhere; F41.9 Anxiety disorder, unspecified; E83.39 Other disorders of phosphorus metabolism; B37.2 Candidiasis of skin and nail; E87.70 Fluid overload, unspecified; E87.6 Hypokalemia; G47.00 Insomnia, unspecified; E83.51 Hypocalcemia; D63.8 Anemia in other chronic diseases classified elsewhere; M19.90 Unspecified osteoarthritis, unspecified site; Z20.822 Contact with and (suspected) exposure to COVID-19; Z96.643 Presence of artificial hip joint, bilateral; W19.XXXA Unspecified fall, initial encounter; F17.210 Nicotine dependence, cigarettes, uncomplicated; Z98.890 Other specified postprocedural states; Z88.5 Allergy status to narcotic agent; Z79.899 Other long term (current) drug therapy; Z79.51 Long term (current) use of inhaled steroids; Z87.19 Personal history of other diseases of the digestive system
CPT/HCPCS: 0241U; 31500; 36415; 36556; 36569; 36600; 51703; 70450; 71045; 71046; 71250; 76536; 76705; 80048; 80053; 80069; 80076; 80400; 81001; 82140; 82248; 82330; 82533; 82570; 82607; 82746; 82803; 82947; 83605; 83615; 83735; 83880; 83930; 83935; 84100; 84132; 84145; 84156; 84300; 84443; 84484; 85014; 85018; 85025; 85379; 85610; 85651; 85730; 86850; 86900; 86901; 87040; 87070; 87077; 87081; 87086; 87147; 87186; 87205; 87449; 93005; 93010; 94002; 94003; 94640; 94660; 94664; 94667; 94668; 94760; 94762; 96361; 96374; 96375; 99285-25; A9270; C1751; C8929; G0480; J0456; J0610; J0690; J0696; J0713; J0834; J1100; J1170; J1644; J1650; J1720; J1940; J1956; J2060; J2250; J2310; J2405; J2543; J2704; J3010; J3411; J3430; J3475; J3480; J7030; J7040; J7050; J7060; P9047; Q9957